=== PATIENT | male | born 1960 | race Caucasian/White ===

== ENCOUNTER 2016-10-19 13:39 | Emergency (ER) | payer MEDICARE, MEDICAID ==
[~2016-10-19] VITALS: Ht 172.7 cm; Wt 67.1 kg
[~2016-10-19 13:39] MED LIST: ACET-819 PO; ARFO15VI2 NEB; AZTH250C PO; BNZT1T PO; CIPR500T78 PO; DNPZ5T PO; GABA300C; GBPN300C PO; GENT3.5O18 OP; HYDR118S10 PO; LORA10TA2; LORA10TA2 PO; LORA1TAB PO; MEMA10TA PO; MIRT30TA6 PO; MNTL10T; MONT10TA21 PO; OMEP-10; OMEP40CA36 PO; PARO40TA47 PO; QTP100T PO; RISP0.5T2 PO; RISP3TAB17 PO; RISP3TAB3 PO; SLMFT1E; VNL75CCR; VNL75CCR PO
--- OUTSIDE RECORDS SUMMARY | 2016-10-19 13:46 | XMS REPORT | Continuity of Care Document ---
Author Author [facility] Organization [facility] Address Unknown Phone Unavailable Care Team Providers Care Parish Worker Name Role Phone Jaylen Garcia PCP [phone] Source Comments Some departments are not documenting in the electronic medical record. If you do not see the information that you expected, contact Release of Information in the Health Information Management department at [phone] for further assistance in locating additional records.[facility] Active Allergies and Adverse Reactions Not on File Current Medications Prescription Sig. Disp. Refills Start End Date Status Date venlafaxine XR (EFFEXOR Take 150 mg by mouth Active XR) 150 mg capsule daily. memantine (NAMENDA) 10 mg Take 10 mg by mouth twice Active tablet daily. MONTELUKAST SODIUM Take by mouth. Active (SINGULAIR PO) LORazepam (ATIVAN) 1 mg Take 1 mg by mouth every Active tablet 4 hours as needed. cetirizine (ZYRTEC) 10 mg Take 10 mg by mouth Active tablet daily. risperiDONE (RISPERDAL) 3 Take 3 mg by mouth twice Active mg tablet daily. neomycin/polymyxin/HC Place 3 Drops in or Active (CORTISPORIN) around ear as directed 3.5-10,000-1 mg-unit/mL-% four times daily. otic suspension mirtazapine (REMERON) 15 Take 15 mg by mouth at Active mg tablet bedtime daily. mupirocin (BACTROBAN) 2 % Apply to affected area Active topical ointment three times daily. OXYGEN-AIR DELIVERY Use as directed. Active SYSTEMS (HORIZON NASAL CPAP SYSTEM MISC) CALCIUM CARBONATE (MAALOX Take by mouth. Active PO) diphenoxylate/atropine Take 1 Tab by mouth four Active (LOMOTIL) 2.5/0.025 mg times daily as needed. tablet MAGNESIUM HYDROXIDE (MILK Take by mouth. Active OF MAGNESIA PO) Arformoterol (BROVANA) 15 Inhale by mouth. Active mcg/2 mL nebu IBUPROFEN PO Take by mouth. Active ofloxacin (FLOXIN) 0.3 % Place 5 Drops in or 1 Bottle 3 11/27/19 Active otic solution around ear as directed 14 daily. Instill in right ear Active Problems Problem Noted Date Cholesteatoma 09/25/2013 Social History Tobacco Use Types Packs/Day Years Used Date Never Smoker Smokeless Tobacco: Never Used Alcohol Use Drinks/Week oz/Week Comments No Last Filed Vital Signs Vital Sign Reading Time Taken Blood Pressure 125/84 11/26/2013 11:27 AM CDT Pulse 102 11/26/2013 11:27 AM CDT Temperature 37.5 C (99.5 F) 11/03/2013 2:57 PM CDT Respiratory Rate - - Height 1.727 m (5' 8") 11/26/2013 11:27 AM CDT Weight 89.268 kg (196 lb 12.8 11/26/2013 11:27 AM CDT oz) Body Mass Index 29.93 11/26/2013 11:27 AM CDT Oxygen Saturation 94% 11/03/2013 4:15 PM CDT Plan of Care Health Maintenance Due Date Last Done Comments Physical (Comprehensive) 1968 Exam Pertussis Vaccine 1972 Tetanus Vaccine 1978 Colorectal Cancer 2011 Screening Influenza Vaccine 04/12/2016 Results from Last 3 Months Not on file
--- NOTE | 2016-10-19 14:54 | ED Cough/URI ---
General Chief Complaint: Cough/Cold/Flu Symptoms Stated Complaint: [facility] Nursing Triage Note: LAST WEEK WAS SEEN AT [facility] FOR MEDICATION ADJUSTMENT, AT THE TIME ALSO HAD FEVER. CONT TO HAVE INTERMITTENT FEVER AND RECEIVED ABX. IS NOT GETTING BETTER. Source: patient Exam Limitations: no limitations History of Present Illness Time seen by provider: 14:52 Initial Comments To ER with intermittent fevers and a cough. Patient is mentally retarded. He' s had a cough for a few days and shortness of breath since earlier today. He is currently on Omnicef for a fever that was discovered last week but he was without symptoms at that point. He was discharged from [facility] health unit at [place] 1-2 weeks ago Timing/Duration: getting worse Severity/Quality: moderate Associated Symptoms: cough, fever/chills Allergies and Home Medications Allergies Coded Allergies: No Known Drug Allergies (Unverified , 04/01/09) Home Medications Arformoterol Tartrate 15 Mcg/2 Ml Vial.neb 1 EACH IH BID (Reported) Gentamicin Sulfate 3.5 Gm Oint...g. 5Days 3.5 GM OP Q6H Prescribed by: MADI MACDONALD on 03/11/16 1248 Levofloxacin 500 Mg Tablet #7 500 MG PO DAILY Prescribed by: MADI MACDONALD on 10/19/16 1531 Loratadine 10 Mg Tablet 10 MG PO DAILY (Reported) Lorazepam 1 Mg Tab 1 EACH PO HS PRN PRN ANXIETY (Reported) Memantine Hcl 10 Mg Tablet 10 MG PO BID (Reported) Mirtazapine 30 Mg Tablet 30 MG PO HS (Reported) Montelukast Sodium 10 Mg Tablet 10 MG PO DAILY (Reported) Risperidone 0.5 Mg Tablet 0.5 MG PO DAILY (Reported) Risperidone 3 Mg Tablet 3 MG PO HS (Reported) Venlafaxine Hcl 75 Mg Cap 150 MG PO DAILY (Reported) Constitutional: see HPI chillsNo fever EENTM: see HPI Respiratory: no symptoms reported Cardiovascular: no symptoms reported Genitourinary: no symptoms reported Musculoskeletal: no symptoms reported Skin: no symptoms reported Psychiatric/Neurological: No Symptoms Reported Hematologic/Lymphatic: No Symptoms Reported Past Sqlnfiv-Xwwmdq-Ngingo Hx Patient Social History Alcohol Use: Denies Use Recreational Drug Use: No Smoking Status: Never a Smoker Recent Foreign Travel: No Contact w/Someone Who Travel: No Recent Infectious Disease Expo: No Recent Hopitalizations: Yes Immunizations Up To Date Date of Influenza Vaccine: Jun 04, 2013 Surgeries HX Surgeries: Yes (KNEE SURGERY LEFT, T & A) Respiratory Hx Respiratory Disorders: No Cardiovascular Hx Cardiac Disorders: No Neurological Hx Neurological Disorders: Yes Reproductive System Hx Reproductive Disorders: No Sexually Transmitted Disease: No HIV/AIDS: No Genitourinary Hx Genitourinary Disorders: No Gastrointestinal Hx Gastrointestinal Disorders: Yes (CONSTIPATION AT TIMES) Gastrointestinal Disorders: Gastroesophageal Reflux Musculoskeletal Hx Musculoskeletal Disorders: No Endocrine Hx Endocrine Disorders: No HEENT HX ENT Disorders: No Psychosocial Hx Psychiatric Problems: Yes Behavioral Health Disorders: Depression Blood Transfusions Hx Blood Disorders: No Physical Exam Vital Signs Vital Sign - Last 12Hours 10/19/16 14:29 Temp 98.3 Pulse 119 Resp 18 B/P 134/95 Pulse Ox 94 Capillary Refill : Less Than 3 Seconds General Appearance: WD/WN no apparent distress Eyes: Bilateral Eye EOMI, Bilateral Eye Normal Inspection, Bilateral Eye PERRL HEENT: PERRL/EOMI normal ENT inspection pharynx normal Neck: non-tender full range of motion Respiratory: no respiratory distress no accessory muscle use rales (lung bases left greater than right) Cardiovascular: no murmur tachycardia Gastrointestinal: normal bowel sounds non tender soft Neurologic/Psychiatric: alert normal mood/affect oriented x 3 Skin: normal color warm/dry Progress/Results/Core Measures Results/Orders Lab Results Laboratory Tests Test 10/19/16 14:50 Range/Units Alanine Aminotransferase (ALT/SGPT) 67 H 0-55 U/L Albumin 3.5 3.2-4.5 G/DL Alkaline Phosphatase 122 40-136 U/L Anion Gap 14 5-14 MMOL/L Aspartate Amino Transf (AST/SGOT) 77 H 5-34 U/L BUN/Creatinine Ratio 28 Basophils # (Auto) 0.0 0.0-0.1 10^3/uL Basophils (%) (Auto) 0 0-10 % Blood Urea Nitrogen 27 H 7-18 MG/DL Calcium Level 10.2 H 8.5-10.1 MG/DL Carbon Dioxide Level 23 21-32 MMOL/L Chloride Level 116 H 98-107 MMOL/L Creatinine 0.96 0.60-1.30 MG/DL Eosinophils # (Auto) 0.1 0.0-0.3 10^3/uL Eosinophils (%) (Auto) 1 0-10 % Estimat Glomerular Filtration Rate > 60 Glucose Level 147 H 70-105 MG/DL Hematocrit 40 40-54 % Hemoglobin 13.2 L 13.3-17.7 G/DL Lymphocytes # (Auto) 1.0 1.0-4.0 X 10^3 Lymphocytes (%) (Auto) 10 L 12-44 % Mean Corpuscular Hemoglobin 31 25-34 PG Mean Corpuscular Hemoglobin Concent 33 32-36 G/DL Mean Corpuscular Volume 95 80-99 FL Mean Platelet Volume 9.9 7.4-10.4 FL Monocytes # (Auto) 0.9 0.0-1.0 X 10^3 Monocytes (%) (Auto) 9 0-12 % Neutrophils # (Auto) 8.3 H 1.8-7.8 X 10^3 Neutrophils (%) (Auto) 81 H 42-75 % Platelet Count 310 130-400 10^3/uL Potassium Level 3.9 3.6-5.0 MMOL/L Red Blood Count 4.23 L 4.35-5.85 10^6/uL Red Cell Distribution Width 13.6 10.0-14.5 % Sodium Level 153 H 135-145 MMOL/L Total Bilirubin 0.3 0.1-1.0 MG/DL Total Protein 6.9 6.4-8.2 G/DL White Blood Count 10.3 4.3-11.0 10^3/uL My Orders Orders-MADI MACDONALD APRN Cbc With Automated Diff (10/19/16 14:46) Comprehensive Metabolic Panel (10/19/16 14:46) Chest Pa/Lat (2 View) (10/19/16 14:46) Saline Lock/Iv-Start (10/19/16 14:46) Levofloxacin Tablet (Levaquin Tablet) (10/19/16 15:30) Ns Iv 500 Ml (Sodium Chloride 0.9%) (10/19/16 16:00) Ns Iv 500 Ml (Sodium Chloride 0.9%) (10/19/16 16:15) Medications Given in ED Current Medications Medications Dose Ordered Sig/Steven Route Start Time Stop Time Status Last Admin Dose Admin Sodium Chloride 500 ml STK-MED ONCE .ROUTE 10/19/16 16:00 10/19/16 16:03 DC 10/19/16 16:05 Vital Signs/I&O Vital Sign - Last 12Hours 10/19/16 10/19/16 14:29 16:28 Temp 98.3 Pulse 119 100 Resp 18 18 B/P 134/95 Pulse Ox 94 97 Blood Pressure Mean: 108 Diagnostic Imaging Diagonstic Imaging: Xray Plain Films/CT/US/NM/MRI: chest Comments NAME: MERVAT ROSAS REC#: [id number] PT STATUS: REG ER : 1960 PHYSICIAN: MADI MACDONALD APRN ADMIT DATE: 10/19/16/ER Draft Date of Exam:10/19/16 CHEST PA/LAT (2 VIEW) INDICATION: Febrile. COMPARISON: 10/14/2011. FINDINGS: PA and lateral views show some alveolar infiltrates developing posteriorly in the right lower lobe. The lungs are well aerated. The heart is not enlarged. No hilar adenopathy. No pulmonary edema. No pneumothorax or pleural effusion. IMPRESSION: Findings consistent with right lower lobe pneumonia. Dictated on workstation # [id number] Dict: 10/19/16 1519 Trans: 10/19/16 1523 [id number] Interpreted by: AMARA SHEETS MD Electronically signed by: Departure Impression Impression: Primary Impression: RLL pneumonia Qualified Code: J18.1 - Lobar pneumonia, unspecified organism Disposition: 01 HOME, SELF-CARE Condition: Stable Departure-Patient Inst. Decision time for Depature: 15:29 Referrals: FABIOLA OMALLEY MD (PCP/Family) Primary Care Physician Patient Instructions: Pneumonia, Adult (DC) Add. Discharge Instructions: 1. Return to ER for any concerns 2. Follow up with Dr Omalley next week 3. Stop the Omnicef. Start the levaquin. All discharge instructions reviewed with patient and/or family. Voiced understanding. Scripts Levofloxacin (Levaquin)500 Mg [id number] Mg PO DAILY #7 TAB Prov:MADI MACDONALD APRN 10/19/16 MADI MACDONALD APRN Oct 19, 2016 14:54
[2016-10-19 15:06] LABS: BASOPHILS % (AUTO) 0 % (0-10); EOSINOPHILS # (AUTO) 0.1 10^3/uL (0.0-0.3); EOSINOPHILS % (AUTO) 1 % (0-10); LYMPHOCYTES % (AUTO) 10 % (12-44); MEAN CORPUSCULAR HEMOGLOBIN 31 PG (25-34); MEAN CORPUSCULAR HGB CONC 33 G/DL (32-36); MEAN CORPUSCULAR VOLUME 95 FL (80-99); MEAN PLATELET VOLUME 9.9 FL (7.4-10.4); MONOCYTES # (AUTO) 0.9 X 10^3 (0.0-1.0); MONOCYTES % (AUTO) 9 % (0-12); NEUTROPHILS # (AUTO) 8.3 X 10^3 (1.8-7.8); NEUTROPHILS % (AUTO) 81 % (42-75); PLATELET COUNT 310 10^3/uL (130-400); RED BLOOD COUNT 4.23 10^6/uL (4.35-5.85); RED CELL DISTRIBUTION WIDTH 13.6 % (10.0-14.5); WHITE BLOOD COUNT 10.3 10^3/uL (4.3-11.0)
--- NOTE | 2016-10-19 15:24 | Diagnostic Imaging Report ---
INDICATION: Febrile. COMPARISON: 10/14/2011. FINDINGS: PA and lateral views show some alveolar infiltrates developing posteriorly in the right lower lobe. The lungs are well aerated. The heart is not enlarged. No hilar adenopathy. No pulmonary edema. No pneumothorax or pleural effusion. IMPRESSION: Findings consistent with right lower lobe pneumonia. Dictated by: Dictated on workstation # [id number]
[2016-10-19 15:26] LABS: ALANINE AMINOTRANSFERASE 67 U/L (0-55); ALBUMIN 3.5 G/DL (3.2-4.5); ANION GAP 14 MMOL/L (5-14); ASPARTATE AMINO TRANSFERASE 77 U/L (5-34); BILIRUBIN,TOTAL 0.3 MG/DL (0.1-1.0); BLOOD UREA NITROGEN 27 MG/DL (7-18); BUN/CREATININE RATIO 28; CALCIUM 10.2 MG/DL (8.5-10.1); CARBON DIOXIDE 23 MMOL/L (21-32); CHLORIDE 116 MMOL/L (98-107); CREATININE SERUM 0.96 MG/DL (0.60-1.30); GFR ESTIMATED > 60; GLUCOSE 147 MG/DL (70-105); POTASSIUM 3.9 MMOL/L (3.6-5.0); SODIUM 153 MMOL/L (135-145); TOTAL PROTEIN 6.9 G/DL (6.4-8.2)
[2016-10-19] MEDS ORDERED: LEVO500T2 PO (15:31)
[2016-10-19] MEDS: NS IV 500 ML 500 ML ONE (16:05)
[2016-10-19] MEDS: LEVOFLOXACIN 500 MG TAB (LEVAQUIN) PO ONE (16:06)
[2016-10-19] MEDS ORDERED: NS IV 500 ML 500 ML IV SCH (16:15)
[2016-10-19 16:28] VITALS: BP 134/98
== END 2016-10-19 16:28 | disposition home or self-care (01) ==
LOC: EDUNIT# 13:39 → ER 13:41
DX: J18.9 Pneumonia, unspecified organism (principal); F79 Unspecified intellectual disabilities
CPT/HCPCS: 36415; 71020; 80053; 85025; 96360

== ENCOUNTER 2016-10-26 13:26 | Inpatient (IN) | payer MEDICARE, MEDICAID ==
[~2016-10-26] VITALS: Ht 182.9 cm; Wt 88.5 kg
[~2016-10-26 13:26] MED LIST changes: +LEVO500T2 PO
--- OUTSIDE RECORDS SUMMARY | 2016-10-26 13:31 | XMS REPORT | Continuity of Care Document ---
Author Author [facility] Organization [facility] Address Unknown Phone Unavailable Care Team Providers Care Director Of Event Management Name Role Phone Jaylen Garcia PCP [phone] Source Comments Some departments are not documenting in the electronic medical record. If you do not see the information that you expected, contact Release of Information in the Health Information Management department at [phone] for further assistance in locating additional records.[facility] Active Allergies and Adverse Reactions Not on [...]
--- NOTE | 2016-10-26 13:35 | ED Fall/Injury ---
General Stated Complaint: FALL Source: patient Exam Limitations: no limitations History of Present Illness Time seen by provider: 13:33 Initial Comments To ER per EMS from the [facility] states with reports of a fall. detention staff found him on the floor laying on his left side this morning. Patient initially complained of left hip pain but to EMS he did not report any pain. He was weightbearing during transfer to the EMS cot. I did see this gentleman a few days ago and started him on Levaquin for a right lower lobe pneumonia. Occurred: just prior to arrival Severity: mild Injuries/Pain Location: lower extremity Context: unknown Associated Symptoms (Fall): Denies Symptoms Allergies and Home Medications Allergies Coded Allergies: No Known Drug Allergies (Unverified , 04/01/09) Home Medications Arformoterol Tartrate 15 Mcg/2 Ml Vial.neb 1 EACH IH BID (Reported) Levofloxacin 500 Mg Tablet #7 500 MG PO DAILY Prescribed by: MADI MACDONALD on 10/19/16 1531 Loratadine 10 Mg Tablet 10 MG PO DAILY (Reported) Lorazepam 1 Mg Tab 1 EACH PO HS PRN PRN ANXIETY (Reported) Memantine Hcl 10 Mg Tablet 10 MG PO BID (Reported) Mirtazapine 30 Mg Tablet 30 MG PO HS (Reported) Montelukast Sodium 10 Mg Tablet 10 MG PO DAILY (Reported) Risperidone 0.5 Mg Tablet 0.5 MG PO DAILY (Reported) Risperidone 3 Mg Tablet 3 MG PO HS (Reported) Venlafaxine Hcl 75 Mg Cap 150 MG PO DAILY (Reported) Constitutional: see HPI Eyes: No Symptoms Reported Ears, Nose, Mouth, Throat: no symptoms reported Respiratory: no symptoms reported Cardiovascular: no symptoms reported Genitourinary: no symptoms reported Musculoskeletal: see HPI Skin: no symptoms reported Psychiatric/Neurological: No Symptoms Reported Past Kywpiwt-Hotyfm-Fxvaws Hx Patient Social History Recent Hopitalizations: Yes Immunizations Up To Date Date of Influenza Vaccine: Jun 04, 2013 Surgeries HX Surgeries: Yes (KNEE SURGERY LEFT, T & A) Respiratory Hx Respiratory Disorders: No Cardiovascular Hx Cardiac Disorders: No Neurological Hx Neurological Disorders: Yes Reproductive System Hx Reproductive Disorders: No Sexually Transmitted Disease: No HIV/AIDS: No Genitourinary Hx Genitourinary Disorders: No Gastrointestinal Hx Gastrointestinal Disorders: Yes (CONSTIPATION AT TIMES) Gastrointestinal Disorders: Gastroesophageal Reflux Musculoskeletal Hx Musculoskeletal Disorders: No Endocrine Hx Endocrine Disorders: No HEENT HX ENT Disorders: No Psychosocial Hx Psychiatric Problems: Yes Behavioral Health Disorders: Depression Blood Transfusions Hx Blood Disorders: No Physical Exam Vital Signs Vital Sign - Last 12Hours 10/26/16 13:35 Temp 98.6 Pulse 113 Resp 18 B/P 118/87 Pulse Ox 94 O2 Delivery Room Air Capillary Refill : General Appearance: WD/WN no apparent distress HEENT: PERRL/EOMI normal ENT inspection Neck: non-tender full range of motion Respiratory: normal breath sounds no respiratory distress no accessory muscle use Gastrointestinal: normal bowel sounds non tender soft Extremities: normal range of motion non-tender other (no pain to palpation of either hip) Neurologic/Psychiatric: alert normal mood/affect oriented x 3 Skin: normal color warm/dry Comments Patient is very pleasant and alert. Denies any pain anywhere. He is mentally retarded. Monroe Coma Score Best Eye Response: (4) Open Spontaneously Best Verbal Response: (5) Oriented Best Motor Response: (6) Obeys Commands Monroe Total: 15 Progress/Results/Core Measures Results/Orders Lab Results Laboratory Tests Test 10/26/16 13:32 Range/Units Band Neutrophils 2 % Basophils # (Auto) 0.0 0.0-0.1 10^3/uL Basophils % (Manual) 0 % Basophils (%) (Auto) 0 0-10 % Blood Morphology Comment NORMAL Eosinophils # (Auto) 0.1 0.0-0.3 10^3/uL Eosinophils % (Manual) 0 % Eosinophils (%) (Auto) 1 0-10 % Hematocrit 44 40-54 % Hemoglobin 14.0 13.3-17.7 G/DL Lymphocytes # (Auto) 2.0 1.0-4.0 X 10^3 Lymphocytes % (Manual) 11 % Lymphocytes (%) (Auto) 12 12-44 % Mean Corpuscular Hemoglobin 31 25-34 PG Mean Corpuscular Hemoglobin Concent 32 32-36 G/DL Mean Corpuscular Volume 97 80-99 FL Mean Platelet Volume 10.6 H 7.4-10.4 FL Monocytes # (Auto) 0.6 0.0-1.0 X 10^3 Monocytes % (Manual) 3 % Monocytes (%) (Auto) 4 0-12 % Neutrophils # (Auto) 13.1 H 1.8-7.8 X 10^3 Neutrophils % (Manual) 84 % Neutrophils (%) (Auto) 83 H 42-75 % Platelet Count 371 130-400 10^3/uL Red Blood Count 4.51 4.35-5.85 10^6/uL Red Cell Distribution Width 13.7 10.0-14.5 % White Blood Count 15.8 H 4.3-11.0 10^3/uL My Orders Orders-MADI MACDONALD APRN Cbc With Automated Diff (10/26/16 13:33) Chest Pa/Lat (2 View) (10/26/16 13:33) Pelvis/[place] Hips 2 Views (10/26/16 13:33) Manual Differential (10/26/16 13:32) Blood Culture (10/26/16 14:01) Lactic Acid Analyzer (10/26/16 14:01) Creatine Kinase (10/26/16 14:09) Comprehensive Metabolic Panel (10/26/16 14:09) Vital Signs/I&O Vital Sign - Last 12Hours 10/26/16 13:35 Temp 98.6 Pulse 113 Resp 18 B/P 118/87 Pulse Ox 94 O2 Delivery Room Air Departure Communication Progress Notes 1409-in regards to the hyperkalemia (initially 6.1) I did discuss the case with laboratory personnel who reports that there was some mild hemolysis. They will come down to redraw this. Impression Impression: Primary Impression: RLL pneumonia Additional Impression: failure of outpatient therapy Disposition: 09 ADMITTED INPATIENT Condition: Stable Decision to Admit Reason: Admit from ER (General) Decision to Admit/Date: Oct 26, 2016 Time/Decision to Admit Time: 14:09 Departure-Patient Inst. Referrals: FABIOLA OMALLEY MD (PCP/Family) Primary Care Physician MADI MACDONALD APRN Oct 26, 2016 13:35 Lactic Acid Analyzer (10/26/16 14:01) Vital Signs/I&O Vital Sign - Last 12Hours 10/26/16 13:35 Temp 98.6 Pulse 113 Resp 18 B/P 118/87 Pulse Ox 94 O2 Delivery Room Air Departure Communication Progress Notes 1409-in regards to the hyperkalemia I did discuss the case with laboratory personnel who reports that there was some mild hemolysis. They will come down to redraw this. Impression Impression: Primary Impression: RLL pneumonia Additional Impression: failure of outpatient therapy Disposition: 09 ADMITTED INPATIENT Condition: Stable Decision to Admit Reason: Admit from ER (General) Decision to Admit/Date: Oct 26, 2016 Time/Decision to Admit Time: 14:09 Departure-Patient Inst. Referrals: FABIOLA OMALLEY MD (PCP/Family) Primary Care Physician MADI MACDONALD APRN Oct 26, 2016 13:35
[2016-10-26 13:40] LABS: BASOPHILS % (AUTO) 0 % (0-10); EOSINOPHILS # (AUTO) 0.1 10^3/uL (0.0-0.3); EOSINOPHILS % (AUTO) 1 % (0-10); LYMPHOCYTES % (AUTO) 12 % (12-44); MEAN CORPUSCULAR HEMOGLOBIN 31 PG (25-34); MEAN CORPUSCULAR HGB CONC 32 G/DL (32-36); MEAN CORPUSCULAR VOLUME 97 FL (80-99); MEAN PLATELET VOLUME 10.6 FL (7.4-10.4); MONOCYTES # (AUTO) 0.6 X 10^3 (0.0-1.0); MONOCYTES % (AUTO) 4 % (0-12); NEUTROPHILS # (AUTO) 13.1 X 10^3 (1.8-7.8); NEUTROPHILS % (AUTO) 83 % (42-75); PLATELET COUNT 371 10^3/uL (130-400); RED BLOOD COUNT 4.51 10^6/uL (4.35-5.85); RED CELL DISTRIBUTION WIDTH 13.7 % (10.0-14.5); WHITE BLOOD COUNT 15.8 10^3/uL (4.3-11.0)
[2016-10-26 13:54] LABS: BAND NEUTROPHILS 2 %; BASOPHILS % (MANUAL) 0 %; EOSINOPHILS % (MANUAL) 0 %; LYMPHOCYTES % (MANUAL) 11 %; NEUTROPHILS % (MANUAL) 84 %
--- NOTE | 2016-10-26 14:45 | Diagnostic Imaging Report ---
INDICATION: Fall. PA and lateral chest obtained at 2:03 p.m. and compared to 10/19/2016. Minimal infiltrates in the lung bases are again noted and appear similar to the previous study of 10/19/2016. Heart is normal in size. There is a hiatal hernia present. There is no pneumothorax or pleural fluid. There is no overt bony abnormality in the chest. IMPRESSION: Mild bibasilar infiltrates are again noted and similar to the prior study. Hiatal hernia again noted. There is no new abnormality. Dictated by: Dictated on workstation # [id number]
[2016-10-26 14:52] LABS: ALANINE AMINOTRANSFERASE 34 U/L (0-55); ALBUMIN 3.6 G/DL (3.2-4.5); ANION GAP 11 MMOL/L (5-14); ASPARTATE AMINO TRANSFERASE 34 U/L (5-34); BILIRUBIN,TOTAL 0.2 MG/DL (0.1-1.0); BLOOD UREA NITROGEN 27 MG/DL (7-18); BUN/CREATININE RATIO 23; CALCIUM 9.5 MG/DL (8.5-10.1); CARBON DIOXIDE 26 MMOL/L (21-32); CHLORIDE 120 MMOL/L (98-107); CREATINE KINASE 764 U/L (30-200); CREATININE SERUM 1.16 MG/DL (0.60-1.30); GFR ESTIMATED > 60; GLUCOSE 98 MG/DL (70-105); POTASSIUM 3.8 MMOL/L (3.6-5.0); SODIUM 157 MMOL/L (135-145); TOTAL PROTEIN 6.1 G/DL (6.4-8.2)
--- NOTE | 2016-10-26 14:53 | Diagnostic Imaging Report ---
INDICATION: Fall with bilateral hip pain. AP view of the pelvis is obtained with coned AP and lateral views of both hips. No acute fracture or malalignment is identified. There does appear to be degenerative facet arthropathy, greater on the left at L4-L5 and L3-L4. Sacroiliac joints and pubic symphysis are intact. There is no evidence of acute hip abnormality. No abnormal lytic or sclerotic focus is identified. IMPRESSION: Lower lumbar degenerative change without acute pelvic or hip abnormality identified. Dictated by: Dictated on workstation # [id number]
[2016-10-26] MEDS ORDERED: CEFEPIME INJECTION 2,000 MG in NS (IVPB) 50 ML IV ONE (15:00)
[2016-10-26] MEDS ORDERED: NS IV 1000 ML 1,000 ML IV SCH (15:15)
[2016-10-26] MEDS ORDERED: CATHETER FLUSH 10 ML SYR IV PRN (16:15)
[2016-10-26] MEDS ORDERED: ACETAMINOPHEN 325 MG TABLET/CAPLET (TYLENOL) PO PRN (16:15)
[2016-10-26] MEDS ORDERED: LORazepam 1 MG (ATIVAN) TAB PO PRN (16:30)
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
[2016-10-26] MEDS: NS IV 1000 ML 1,000 ML IV SCH (16:44)
[2016-10-26] MEDS: AZITHROMYCIN INJECTION 500 MG in NS (IVPB) 250 ML IV SCH (16:44)
[2016-10-26 16:46] VITALS: BP 151/92
[2016-10-26] MEDS: ENOXAPARIN 40 MG/0.4 ML (LOVENOX) SYR SC SCH (16:46)
[2016-10-26] MEDS ORDERED: RT-ALBUTEROL SULF 2.5 MG/3 ML PRE-MIX VIAL INH PRN (17:30)
[2016-10-26] MEDS ORDERED: LORazepam 0.5 MG (ATIVAN) TABLET PO PRN (19:30)
[2016-10-26 20:03] VITALS: BP 128/89
[2016-10-26] MEDS: ARFORMOTEROL 15 MCG/2 ML (BROVANA) INH SOLUTIION IH SCH (20:47)
[2016-10-26] MEDS: MIRTAZAPINE 15 MG (REMERON) TAB PO SCH (20:49)
[2016-10-26] MEDS: risperiDONE 1 MG (RisperDAL) TAB PO SCH (20:49)
[2016-10-26] MEDS: MEMANTINE 10 MG (NAMENDA) TABLET PO SCH (20:50)
[2016-10-26] MEDS ORDERED: ARFORMOTEROL 15 MCG/2 ML (BROVANA) INH SOLUTIION IH SCH (21:00)
[2016-10-26] MEDS ORDERED: NON-FORMULARY MEDICATION 1 EA EA (Risperidone 3 MG) PO SCH (21:00)
[2016-10-26] MEDS ORDERED: NON-FORMULARY MEDICATION 1 EA EA (Mirtazapine 30 MG) PO SCH (21:00)
[2016-10-27] VITALS: BP 117/77
[2016-10-27] MEDS: NS IV 1000 ML 1,000 ML IV SCH ×3 (02:00→16:59)
[2016-10-27 04:00] VITALS: BP 120/82
[2016-10-27 04:43] LABS: MEAN PLATELET VOLUME 10.6 FL (7.4-10.4); RED BLOOD COUNT 3.9 10^6/uL (4.35-5.85); RED CELL DISTRIBUTION WIDTH 13.7 % (10.0-14.5); WHITE BLOOD COUNT 7.2 10^3/uL (4.3-11.0)
[2016-10-27 05:02] LABS: ALANINE AMINOTRANSFERASE 29 U/L (0-55); ALBUMIN 3.1 G/DL (3.2-4.5); ANION GAP 7 MMOL/L (5-14); ASPARTATE AMINO TRANSFERASE 48 U/L (5-34); BILIRUBIN,TOTAL 0.3 MG/DL (0.1-1.0); BLOOD UREA NITROGEN 18 MG/DL (7-18); BUN/CREATININE RATIO 20; CALCIUM 8.4 MG/DL (8.5-10.1); CARBON DIOXIDE 26 MMOL/L (21-32); CHLORIDE 121 MMOL/L (98-107); CREATININE SERUM 0.89 MG/DL (0.60-1.30); GFR ESTIMATED > 60; GLUCOSE 117 MG/DL (70-105); POTASSIUM 3.5 MMOL/L (3.6-5.0); SODIUM 154 MMOL/L (135-145); TOTAL PROTEIN 5.4 G/DL (6.4-8.2)
[2016-10-27 05:23] LABS: THYROID STIMULATING HORMONE 1.48 UIU/ML (0.35-4.94)
[2016-10-27 08:34] VITALS: BP 121/77
[2016-10-27] MEDS: MONTELUKAST 10 MG (SINGULAIR) TAB PO SCH (08:41)
[2016-10-27] MEDS: VENlafaxine XR 75 MG (EFFEXOR XR) CAP PO SCH (08:41)
[2016-10-27] MEDS: risperiDONE 1 MG (RisperDAL) TAB PO SCH ×2 (08:42→21:43)
[2016-10-27] MEDS: MEMANTINE 10 MG (NAMENDA) TABLET PO SCH ×2 (08:44→21:43)
[2016-10-27] MEDS: cefTRIAXone INJECTION 1,000 MG in NS (IVPB) 50 ML IV SCH (08:44)
[2016-10-27] MEDS ORDERED: NON-FORMULARY MEDICATION 1 EA EA (Risperidone 0.5 MG) PO SCH (09:00)
[2016-10-27] MEDS ORDERED: AZITHROMYCIN INJECTION 500 MG in NS (IVPB) 250 ML IV SCH (09:00)
[2016-10-27] MEDS: LORATADINE (CLARITIN) 10 MG TAB PO SCH (09:17)
[2016-10-27] MEDS: AZITHROMYCIN INJECTION 500 MG in NS (IVPB) 250 ML IV SCH (09:22)
[2016-10-27] MEDS: ARFORMOTEROL 15 MCG/2 ML (BROVANA) INH SOLUTIION IH SCH ×2 (11:52→19:49)
[2016-10-27 12:00] VITALS: BP 143/93
--- NOTE | 2016-10-27 12:11 | Progress Note-Hospitalist ---
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 He is a resident of [facility] and evidently had not been seen since this morning when he had fallen in his room. He says he doesn't know why he had fallen. he denied tripping or syncope but was found on the floor nonetheless. He originally complained of some hip pain but is ambulatory and x-rays were negative. Been seen previously this week for a right lower lobe pneumonia and started on Levaquin. White count is now up to 15,000 he is somewhat tachycardic in the right lower lobe pneumonia has not shown any improvement. He is admitted for physical therapy and IV antibiotics. Date Seen 10/27/16 Subjective/Events-last exam patient appears to be essentially unchanged from yesterday. He is been afebrile overnight but he remains tachycardic. Serum sodium is coming down. Review of Systems Neurological: : Weakness Objective Exam Vital Signs Vital Sign - Last 12Hours 10/26/16 13:35 Temp 98.6 Pulse 113 Resp 18 B/P 118/87 Pulse Ox 94 O2 Delivery Room Air Capillary Refill : Less Than 3 Seconds General Appearance: No Apparent Distress Chronically ill Neck: Other (extended) Respiratory: Lungs Clear Normal Breath Sounds No Accessory Muscle Use Cardiovascular: Tachycardia Gastrointestinal: Soft Results/Procedures Lab Laboratory Tests 10/26/16 13:32 10/26/16 14:25 10/27/16 04:10 Assessment/Plan Assessment and Plan Assess & Plan/Chief Complaint 1. right lower lobe pneumonia failed outpatient treatment-day number 2 Rocephin and Zithromax 2. Weakness and falling uncertain etiology will obtain PT 3. Hypernatremia appears to be chronic-consider checking urine lites, improving with IV fluid hydration 4. History of closed head injury with mental impairment-requires nursing home residence living SALVATORE BALLESTEROS MD Oct 27, 2016 12:11
[2016-10-27 16:00] VITALS: BP 142/90
[2016-10-27] MEDS: ENOXAPARIN 40 MG/0.4 ML (LOVENOX) SYR SC SCH (16:59)
[2016-10-27 20:00] VITALS: BP 147/87
[2016-10-27] MEDS: MIRTAZAPINE 15 MG (REMERON) TAB PO SCH (21:43)
[2016-10-28] VITALS: BP 122/82
[2016-10-28] MEDS: NS IV 1000 ML 1,000 ML IV SCH (02:55)
[2016-10-28 04:00] VITALS: BP 141/94
[2016-10-28] MEDS: ACETAMINOPHEN 325 MG TABLET/CAPLET (TYLENOL) PO PRN ×2 (05:02→16:08)
[2016-10-28 07:54] LABS: MEAN PLATELET VOLUME 10.7 FL (7.4-10.4); RED BLOOD COUNT 3.92 10^6/uL (4.35-5.85); RED CELL DISTRIBUTION WIDTH 13.6 % (10.0-14.5); WHITE BLOOD COUNT 13.7 10^3/uL (4.3-11.0)
[2016-10-28 08:16] LABS: ALANINE AMINOTRANSFERASE 29 U/L (0-55); ALBUMIN 3.2 G/DL (3.2-4.5); ANION GAP 10 MMOL/L (5-14); ASPARTATE AMINO TRANSFERASE 40 U/L (5-34); BILIRUBIN,TOTAL 0.4 MG/DL (0.1-1.0); BLOOD UREA NITROGEN 10 MG/DL (7-18); BUN/CREATININE RATIO 14; CALCIUM 8.6 MG/DL (8.5-10.1); CARBON DIOXIDE 24 MMOL/L (21-32); CHLORIDE 113 MMOL/L (98-107); CREATININE SERUM 0.72 MG/DL (0.60-1.30); GFR ESTIMATED > 60; GLUCOSE 127 MG/DL (70-105); POTASSIUM 3.5 MMOL/L (3.6-5.0); SODIUM 147 MMOL/L (135-145); TOTAL PROTEIN 5.6 G/DL (6.4-8.2)
[2016-10-28 08:23] VITALS: BP 102/68
[2016-10-28] MEDS: ARFORMOTEROL 15 MCG/2 ML (BROVANA) INH SOLUTIION IH SCH ×2 (08:42→18:50)
[2016-10-28] MEDS: LORATADINE (CLARITIN) 10 MG TAB PO SCH (08:50)
[2016-10-28] MEDS: cefTRIAXone INJECTION 1,000 MG in NS (IVPB) 50 ML IV SCH (08:50)
[2016-10-28] MEDS: MEMANTINE 10 MG (NAMENDA) TABLET PO SCH ×2 (08:50→20:02)
[2016-10-28] MEDS: risperiDONE 1 MG (RisperDAL) TAB PO SCH ×2 (08:50→20:01)
[2016-10-28] MEDS: MONTELUKAST 10 MG (SINGULAIR) TAB PO SCH (08:50)
[2016-10-28] MEDS: VENlafaxine XR 75 MG (EFFEXOR XR) CAP PO SCH (08:50)
[2016-10-28] MEDS: AZITHROMYCIN INJECTION 500 MG in NS (IVPB) 250 ML IV SCH (09:36)
--- NOTE | 2016-10-28 11:56 | Progress Note-Hospitalist ---
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 He is a resident of [facility] and evidently had not been seen since this morning when he had fallen in his room. He says he doesn't know why he had fallen. he denied tripping or syncope but was found on the floor nonetheless. He originally complained of some hip pain but is ambulatory and x-rays were negative. Been seen previously this week for a right lower lobe pneumonia and started on Levaquin. White count is now up to 15,000 he is somewhat tachycardic in the right lower lobe pneumonia has not shown any improvement. He is admitted for physical therapy and IV antibiotics. Date Seen 10/28/16 Subjective/Events-last exam patient is awake and answers my questions the best that he can. Don't see that he's been up in a chair but work on that today. Objective Exam Vital Signs Vital Sign - Last 12Hours 10/26/16 13:35 Temp 98.6 Pulse 113 Resp 18 B/P 118/87 Pulse Ox 94 O2 Delivery Room Air Capillary Refill : Less Than 3 Seconds General Appearance: No Apparent Distress Other (her dentition) Neck: Other (hyperextended) Respiratory: Lungs Clear Normal Breath Sounds Cardiovascular: Tachycardia Gastrointestinal: Normal Bowel Sounds Non Tender Soft Rectal: Deferred Neurologic/Psychiatric: Alert Disoriented x3 Skin: Warm/Dry Results/Procedures Lab Laboratory Tests 10/28/16 07:00 Assessment/Plan Assessment and Plan Assess & Plan/Chief Complaint 1. right lower lobe pneumonia failed outpatient treatment-day number 3 Rocephin and Zithromax-recheck a chest x-ray 2. Weakness and falling uncertain etiology will obtain PT-patient up in chair 3. Hypernatremia appears to be chronic-consider checking urine lites, improving with IV fluid hydration-I'll Hep-Lock IV fluids and push water 4. History of closed head injury with mental impairment-requires intermediate residence living 5. CODE STATUS needs to be addressed 6. tachycardia with a normal TSH. Uncertain etiology, but dehydration has been addressed certainly by now SALVATORE BALLESTEROS MD Oct 28, 2016 11:56
[2016-10-28 12:00] VITALS: BP 103/64
--- NOTE | 2016-10-28 15:56 | Diagnostic Imaging Report ---
INDICATION: Recheck pneumonia. EXAMINATION: Chest, 10/28/16. COMPARISON: 10/26/16. FINDINGS: There is a moderate hiatal hernia similar to previous imaging. The heart is stable. The pulmonary vasculature is unremarkable. Bibasilar atelectasis or infiltrates noted, slightly increased since previous imaging. No effusions are seen. There is no pneumothorax. IMPRESSION: Bibasilar atelectasis or infiltrate, slightly worsened compared to previous imaging. Remaining chest is stable. Dictated by: Dictated on workstation # [id number]
[2016-10-28 16:00] VITALS: BP 130/82
[2016-10-28] MEDS: ENOXAPARIN 40 MG/0.4 ML (LOVENOX) SYR SC SCH (16:08)
[2016-10-28 19:47] VITALS: BP 113/73
[2016-10-28] MEDS: MIRTAZAPINE 15 MG (REMERON) TAB PO SCH (20:01)
[2016-10-29 00:18] VITALS: BP 135/83
[2016-10-29] MEDS: ACETAMINOPHEN 325 MG TABLET/CAPLET (TYLENOL) PO PRN ×2 (00:23→05:29)
[2016-10-29 04:27] LABS: ANION GAP 9 MMOL/L (5-14); BLOOD UREA NITROGEN 9 MG/DL (7-18); BUN/CREATININE RATIO 13; CALCIUM 8.7 MG/DL (8.5-10.1); CARBON DIOXIDE 23 MMOL/L (21-32); CHLORIDE 114 MMOL/L (98-107); CREATININE SERUM 0.72 MG/DL (0.60-1.30); GFR ESTIMATED > 60; GLUCOSE 137 MG/DL (70-105); POTASSIUM 3.4 MMOL/L (3.6-5.0); SODIUM 146 MMOL/L (135-145)
[2016-10-29 04:53] VITALS: BP 113/70
[2016-10-29 08:30] VITALS: BP 117/75
[2016-10-29] MEDS: MEMANTINE 10 MG (NAMENDA) TABLET PO SCH (08:56)
[2016-10-29] MEDS: MONTELUKAST 10 MG (SINGULAIR) TAB PO SCH (08:56)
[2016-10-29] MEDS: LORATADINE (CLARITIN) 10 MG TAB PO SCH (08:56)
[2016-10-29] MEDS: risperiDONE 1 MG (RisperDAL) TAB PO SCH (08:57)
[2016-10-29] MEDS: VENlafaxine XR 75 MG (EFFEXOR XR) CAP PO SCH (08:57)
[2016-10-29] MEDS: cefTRIAXone INJECTION 1,000 MG in NS (IVPB) 50 ML IV SCH (08:57)
[2016-10-29] MEDS: AZITHROMYCIN INJECTION 500 MG in NS (IVPB) 250 ML IV SCH (09:41)
[2016-10-29] MEDS ORDERED: ATOR20TA66 PO (09:48)
[2016-10-29] MEDS ORDERED: NEOM7.5D8 OS (09:48)
[2016-10-29] MEDS ORDERED: TAMS0.4C2 PO (09:48)
[2016-10-29] MEDS ORDERED: METF500T4 PO (09:48)
[2016-10-29] MEDS ORDERED: VENL150C98 PO (09:48)
[2016-10-29] MEDS ORDERED: DOCU-143 PO (09:48)
[2016-10-29] MEDS ORDERED: CNC1KV IJ (09:48)
[2016-10-29] MEDS ORDERED: RIVA1PAT3 TD (09:48)
[2016-10-29] MEDS ORDERED: MIRT15TA6 PO (09:48)
[2016-10-29] MEDS ORDERED: IBUP-1773 PO (09:48)
[2016-10-29] MEDS ORDERED: TRAZ-28 PO (09:48)
[2016-10-29] MEDS ORDERED: IPRA3AMP NEB (09:48)
[2016-10-29] MEDS ORDERED: FOLI1TAB24 PO (09:48)
[2016-10-29] MEDS ORDERED: CARB15DR87 EACH EAR (09:48)
[2016-10-29] MEDS ORDERED: LORA0.5T PO (09:48)
[2016-10-29] MEDS ORDERED: GUAI100L13 PO (09:48)
[2016-10-29] MEDS ORDERED: CHOL10003 PO (09:48)
[2016-10-29] MEDS: ARFORMOTEROL 15 MCG/2 ML (BROVANA) INH SOLUTIION IH SCH (10:33)
--- NOTE | 2016-11-14 13:36 | Discharge Summary-Hospitalist ---
Diagnosis/Chief Complaint Date of Admission Oct 26, 2016 at 15:03 Date of Discharge Oct 29, 2016 at 11:24 Discharge Date: Oct 29, 2016 Admission Diagnosis 1. right lower lobe pneumonia failed outpatient treatment 2. Weakness and falling uncertain etiology will obtain PT 3. Hypernatremia appears to be chronic 4. 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 He is a resident of [facility] and evidently had not been seen since this morning when he had fallen in his room. He says he doesn't know why he had fallen. he denied tripping or syncope but was found on the floor nonetheless. He originally complained of some hip pain but is ambulatory and x-rays were negative. Been seen previously this week for a right lower lobe pneumonia and started on Levaquin. White count is now up to 15,000 he is somewhat tachycardic in the right lower lobe pneumonia has not shown any improvement. He is admitted for physical therapy and IV antibiotics. Hospital course: the patient was placed on IV antibiotics. His alertness improved steadily. He appeared better able to participate with physical therapy. He was transferred to swing bed on 10/31 complete an additional 5 days of IV antibiotics and to continue physical therapy in hopes of the adequate improvement to return to his present home at [facility]. Discharge Summary Discharge Physical Examination Allergies: Coded Allergies: No Known Drug Allergies (Unverified , 04/01/09) Hospital Course Labs (last 24 hrs) Microbiology 10/26/16 Blood Culture - Final, Complete No growth Discharge Home Medications: Active Scripts Active Reported Debrox (Carbamide Peroxide) 15 Ml Drops 5 Drops EACH EAR BID PRN 10 Days Guaifenesin 100 Mg/5 Ml Liquid 5-10 Ml PO EVERY 4-6 HOURS PRN Iprat-Albut 0.5-3(2.5) mg/3 ml (Ipratropium/Albuterol Sulfate) 3 Ml Ampul.neb 3 Ml NEB EVERY 4-6 HOURS PRN Ibuprofen 600 Mg Tablet 600 Mg PO TID PRN Atorvastatin Calcium 20 Mg Tablet 20 Mg PO HS Mirtazapine 15 Mg Tablet 15 Mg PO HS Lorazepam 0.5 Mg Tablet 0.5 Mg PO HS Trazodone HCl 50 Mg Tablet 50 Mg PO HS Tamsulosin HCl 0.4 Mg Cap.er.24h 0.4 Mg PO 1700 Cyanocobalamin Injection (Cyanocobalamin) 1,000 Mcg/Ml Inj 1,000 Mcg IJ MONTHLY ON THE 7TH Exelon (Rivastigmine) 9.5 Mg Patch 9.5 Mg TD DAILY Folic Acid 1 Mg Tablet 1 Mg PO DAILY Vitamin D3 (Cholecalciferol (Vitamin D3)) 1,000 Unit Tablet 2,000 Unit PO DAILY TAKES 2 (1000 UNIT) TABLETS Metformin HCl 500 Mg Tablet 500 Mg PO BID Colace (Docusate Sodium) 100 Mg Capsule 100 Mg PO BID Venlafaxine HCl ER (Venlafaxine HCl) 150 Mg Cap.er.24h 150 Mg PO DAILY Brovana (Arformoterol Tartrate) 15 Mcg/2 Ml Vial.neb 2 Ml NEB Q12H PRN Singulair (Montelukast Sodium) 10 Mg Tablet 10 Mg PO DAILY Loratadine 10 Mg Tablet 10 Mg PO DAILY Namenda (Memantine) 10 Mg Tablet 10 Mg PO BID Instructions to patient/family Please see electonic discharge instructions given to patient. Clinical Quality Measures DVT/VTE Risk/Contraindication: Risk Factor Score Per Nursin RFS Level Per Nursing on Admit: 4+=Very High MIKAYLA FRANCIS MD Nov 14, 2016 13:36
== END 2016-10-29 11:24 | disposition swing bed (61) | DRG 194 ==
LOC: EDUNIT# 13:26 → ER 13:27 → 4TH 15:03
PROVIDERS: ADMIT Internal Medicine; ATTEND Internal Medicine
DX: J18.9 Pneumonia, unspecified organism (principal); R00.0 Tachycardia, unspecified; E87.0 Hyperosmolality and hypernatremia; R53.1 Weakness; F32.9 Major depressive disorder, single episode, unspecified; K21.9 Gastro-esophageal reflux disease without esophagitis; R29.6 Repeated falls; F79 Unspecified intellectual disabilities; Z87.820 Personal history of traumatic brain injury
CPT/HCPCS: 36415; 71010; 71020; 73521; 80048; 80053; 82550; 83605; 84443; 85007; 85027; 87040; 94640; 94760; 96365

== ENCOUNTER 2016-10-29 09:27 | Inpatient (IN) | payer MEDICARE, MEDICAID ==
[~2016-10-29] VITALS: Ht 182.9 cm; Wt 88.5 kg
[2016-10-29] MEDS ORDERED: VENL150C98 PO (09:48)
[2016-10-29] MEDS ORDERED: LORA0.5T PO (09:48)
[2016-10-29] MEDS ORDERED: CHOL10003 PO (09:48)
[2016-10-29] MEDS ORDERED: GUAI100L13 PO (09:48)
[2016-10-29] MEDS ORDERED: TAMS0.4C2 PO (09:48)
[2016-10-29] MEDS ORDERED: RIVA1PAT3 TD (09:48)
[2016-10-29] MEDS ORDERED: IBUP-1773 PO (09:48)
[2016-10-29] MEDS ORDERED: IPRA3AMP NEB (09:48)
[2016-10-29] MEDS ORDERED: CARB15DR87 EACH EAR (09:48)
[2016-10-29] MEDS ORDERED: DOCU-143 PO (09:48)
[2016-10-29] MEDS ORDERED: ATOR20TA66 PO (09:48)
[2016-10-29] MEDS ORDERED: FOLI1TAB24 PO (09:48)
[2016-10-29] MEDS ORDERED: TRAZ-28 PO (09:48)
[2016-10-29] MEDS ORDERED: METF500T4 PO (09:48)
[2016-10-29] MEDS ORDERED: CNC1KV IJ (09:48)
[2016-10-29] MEDS ORDERED: MIRT15TA6 PO (09:48)
[2016-10-29] MEDS ORDERED: NEOM7.5D8 OS (09:48)
--- NOTE | 2016-10-29 10:54 | Physical Therapy Evaluation ---
PT Evaluation-General Medical Diagnosis Admission Date 10/26/16 Onset Date: Oct 26, 2016 Therapy Diagnosis Therapy Diagnosis: impaired mobility Height/Weight Height (Feet): 6 Height (Inches): 0 Weight (Pounds): 195 Weight (Ounces): 0.0 Referral Physician: Avis Neville Reason for Referral: Evaluation/Treatment, Gait Medical History Additional Medical History falls; old closed head injury Current History Patient resides at [facility]. He has had a persistent pneumonia. He was found on the floor after fall. Reason for fall is unknown. Admitted for IV antibiotics and therapy. Social History Home: [facility] Prior/Core FIM Prior Level of Function Functional [place] Measure 0=Not Assessed/NA 4=Minimal Assistance 1=Total Assistance 5=Supervision or Setup 2=Maximal Assistance 6=Modified Archer 3=Moderate Assistance 7=Complete Archer Bed Mobility: 4 Transfers (B,C,W/C) (FIM): 4 Gait: 4 PT Evaluation-Current Subjective Pt is friendly. He tries to be cooperative but has difficulty following commands. He has no c/o pain. He is not a good historian as to his prior level of function. Objective Problem Solving: Poor Attachments: Oxygen, IV ROM/Strength ROM Upper Extremities WFL ROM Lower Extremities WFL Strength Upper Extremities gross 4/5 Strenght Lower Extremities gross 4/5 Sensory Vision: Wears Glasses Hearing: Functional Transfers Functional Archer Measure 0=Not Assessed/NA 4=Minimal Assistance 1=Total Assistance 5=Supervision or Setup 2=Maximal Assistance 6=Modified [place] 3=Moderate Assistance 7=Complete Archer Transfers (B, C, W/C) (FIM): 3 Scootin Rollin Supine to/from Sit: 3 Sit to/from Stand: 4 Sit to Lying (QC): 3 Lying to Sitting/Side of Bed(Q: 3 Sit to Stand (QC): 3 Chair/Jlm-uk-Iowwl Xfer(QC): 3 Gait Does the Patient Walk?: Yes Mode of Locomotion: Both Anticipated Mode of Locomotion: Walk Gait (FIM): 3 Distance (FIM): 3=150 ft Distance: 150 Walk 50 ft with 2 Turns(QC): 3 Walk 150 ft (QC): 3 Gait Level of Assist: 3 Gait Persons Needed: 1 Gait Assistive Device: None Comments/Gait Description Pt needs constant cues to remind him what his task is. He has forward flexed posture with forward wt, leading to a rapid and uncontrolled forward motion. He is at risk of fall. Balance Sitting Static: Good Sitting Dynamic: Good Standing Static: Poor Standing Dynamic: Poor Assessment/Needs Pt has unsafe transfers and gait. He has difficulty understanding, processing, and staying on task. He will benefit from therapy to assess for assistive device and to work on mobility during his hospitalization to promote return to prior level of function. Rehab Potential: Guarded Post Rehab Potential-Barriers: cognition and memory PT Senior Living Goals Senior Living Goals PT Entry Level Machine Operator Goals Time Frame: Nov 09, 2016 Transfers (B,C,W/C) (FIM): 5 Sit to Lying (QC): 4 Lying-Sitting on Side/Bed(QC): 4 Sit to Stand (QC): 4 Chair/Rlx-hh-Aqztc Xfer(QC): 4 Does the Patient Walk: Yes Gait (FIM): 4 Gait distance (FIM): 3=150 ft Distance: 150 Walk 50ft with 2 Turns (QC): 4 Walk 150 ft (QC): 4 Gait Level of Assist: 4 Gait Assistive Device: FWW PT Plan Problem List Problem List: Activity Tolerance, Functional Strength, Gait, Transfer Treatment/Plan Treatment Plan: Continue Plan of Care Treatment Plan: Bed Mobility, Functional Activity Connie, Functional Strength, Gait # of days/week 6 Visits Per Week: 11 Minutes/Day (M-F): 20-30 Minutes/Day (Sat/Mccormick): 15 Pt/Family Agrees w/Plan: Yes Safety Risks/Education Patient Education: Gait Training, Transfer Techniques Teaching Recipient: Patient Teaching Methods: Demonstration Discharge Recommendations Target Placement residential Time/GCodes Time In: 900 Time Out: 930 Total Billed Treatment Time: 30 Total Billed Treatment visit, evaluation moderate complexity IRMA BURNS PT Oct 29, 2016 10:54
[2016-10-29] MEDS ORDERED: RT-ALBUTEROL SULF 2.5 MG/3 ML PRE-MIX VIAL INH PRN (11:30)
[2016-10-29] MEDS ORDERED: LORazepam 0.5 MG (ATIVAN) TABLET PO PRN (11:30)
[2016-10-29] MEDS ORDERED: CATHETER FLUSH 10 ML SYR IV PRN (11:45)
--- OUTSIDE RECORDS SUMMARY | 2016-10-29 11:50 | XMS REPORT | Continuity of Care Document ---
Author Author [facility] Organization [facility] Address Unknown Phone Unavailable Care Team Providers Care It Program Auditor Name Role Phone Jaylen Garcia PCP [phone] Source Comments Some departments are not documenting in the electronic medical record. If you do not see the information that you expected, contact Release of Information in the Health Information Management department at [phone] for further assistance in locating additional records.[facility] Active Allergies and Adverse Reactions [...]
--- NOTE | 2016-10-29 14:58 | Occupational Therapy Eval ---
OT Evaluation-General/PLF Medical Diagnosis Admission Date Oct 29, 2016 at 11:25 Medical Diagnosis: Pneumonia Onset Date: Oct 26, 2016 Therapy Diagnosis Therapy Diagnosis: weakness, decr self care Height/Weight Height (Feet): 6 Height (Inches): 0 Weight (Pounds): 195 Weight (Ounces): 0.0 Referral Physician: Sandrita Referral Reason: Evaluation/Treatment Medical History Pertinent Medical History: GERD Additional Medical History L knee surgery, constipation, depression, mentally challenged, possible hx CHI Current History Admitted through ED after fall at [facility]. Per staff, pt has been fighting pneumonia for some time. Reviewed History: Yes Social History Home: Assisted Living ([facility]) Current Living Status: Alone has a cat named Max ADL-Prior Level of Function ADL PLOF Comments Per Mamie at [facility], [place] has declined in his self care abilities since May when some of his medications were changed. He now requires one person assist for all of his ADLs. He does not initiate them and staff have to guide his limbs into his clothing. For the past 1-2 weeks he has been using a walker but before that could walk without assistance. Per Mamie, he has a long history of psychotropic medications and family history of Alzheimers. Mamie said that he could return if he needs only 1 person assist. Occupation: former teacher Drive Self: No OT Current Status Subjective Pt seen in room, up in bed, agreeable to OT. Pt reported he had no pain. Appearance Pt thought he was a [facility]. He did recognize this OT from [facility] Mental Status/Objective Patient Orientation: Person Current Glasses/Contacts: Yes Dentures/Partials: No (Teeth are inpoor condition) Upper Extremity ROM Pt had difficulty following instructions for ROM testing. Fingers in MP flexion and IP hyperextension. Some difficulty making a complete fist Upper Extremity Strength Unable to follow instructions for muscle testing. Grossly 4/5 bilat ADL-Treatment Functional [place] Measure 0=Not Assessed/NA 4=Minimal Assistance 1=Total Assistance 5=Supervision or Setup 2=Maximal Assistance 6=Modified [place] 3=Moderate Assistance 7=Complete IndependenceIRFPAI Quality Coding Scale 6 Independent with activity with or without an assistive device 5 Patient requires set up or clean up by helper. Patient completes activity by themselves 4 Supervision or touching assist (CGA). [place] provide cues , steadying assist 3 The helper provides less than half the effort to complete the activity 2 The helper provides more than half the effort to complete the activity 1 Dependent. The helper does all the effort to complete an activity 7 Patient refused to complete or attempt activity 9 The patient did not perform the activity before the current illness or injury 88 Not attempted due to Medical conditions or safety concerns Eating (FIM): 2 (Staff stab food and cue him to take bites. He does not initiate. ) Eating (QC): 2 Grooming (FIM): 2 (Pt was unable to wash face, brush teeth (a few brush strokes after set up), rinse mouth, comb hair) Oral Hygiene (QC): 2 Toileting (FIM): 2 (Per nursing,sometimes he is able to identify if he needs to go to the bathroom but is usually incontinent of urine. Wearing paper underwear. ) Toileting Hygiene (QC): 2 Toilet/Commode Transfer (FIM): 2 (Staff report he is able but needs cues. Generally incontinent) Toilet Transfer (QC): 2 Other Treatments Pt was unable to initiate steps to sit EOB. Difficulty following cues for ADLs. Also difficulty to understand verbal communication at times. Education OT Patient Education: Purpose of tx/functional activities Teaching Recipient: Patient Response to Teaching: Reinforcement Needed OT Short Term Goals Short Term Goals 1=Demonstrate adherence to instructed precautions during ADL tasks. 2=Patient will verbalize/demonstrate understanding of assistive devices/ modifications for ADL. 3=Patient will improve strength/tolerance for activity to enable patient to perform ADL's. OT Acupuncturist Goals Senior Care Goals Time Frame: Nov 09, 2016 Eating (FIM): 4 Eating (QC): 4 Groomin Oral Hygiene (QC): 4 Upper Body Dressing(FIM): 4 Lower Body Dressing(FIM): 4 Toileting(FIM): 4 Toileting Hygiene (QC): 4 Toilet/Commode Transfer(FIM): 4 Toilet/Commode Transfer (QC): 4 Additional Goals: 2-Verbalize Understanding, 3-ImproveStrength/Connie 1=Demonstrate adherence to instructed precautions during ADL tasks. 2=Patient will verbalize/demonstrate understanding of assistive devices/ modifications for ADL. 3=Patient will improve strength/tolerance for activity to enable patient to perform ADL's. OT Education/Plan Problem List/Assessment Assessment: Decreased Safety Aware, Dependent Transfers (Motor planning and initiation), Impaired Self-Care Skills Discharge Recommendations Plan/Recommendations: Continue POC Therapy D/C Recommendations: Assisted Living ([facility]) Target Placement Back to [facility] Treatment Plan/Plan of Care Treatment,Training & Education: Yes Patient would benefit from OT for education, treatment and training to promote independence in ADL's, mobility, safety and/or upper extremity function for ADL' s. Plan of Care: ADL Retraining, Functional Mobility, UE Funct Exercise/Act Treatment Duration: Nov 09, 2016 # of days/week 5 Visits Per Week: 5 Agreement: Yes Rehab Potential: Guarded Time/GCodes Start Time: 14:16 Stop Time: 14:41 Total Time Billed (hr/min): 25 Billed Treatment Time visit, low intensity evaluation 25 minutes DAKOTA CLARK OT Oct 29, 2016 14:58
--- NOTE | 2016-10-29 16:44 | Physical Therapy Daily Note ---
PT Daily Note-Current Subjective Pt laying supine with head tilt back uncomfortably upon arrival. Pt agrees to PT for ambulation. Mental Status Patient Orientation: Person, Unable to Assess Attachments: Oxygen Transfers Functional [place] Measure 0=Not Assessed/NA 4=Minimal Assistance 1=Total Assistance 5=Supervision or Setup 2=Maximal Assistance 6=Modified [place] 3=Moderate Assistance 7=Complete IndependenceIRFPAI Quality Coding Scale 6 Independent with activity with or without an assistive device 5 Patient requires set up or clean up by helper. Patient completes activity by themselves 4 Supervision or touching assist (CGA). [place] provide cues , steadying assist 3 The helper provides less than half the effort to complete the activity 2 The helper provides more than half the effort to complete the activity 1 Dependent. The helper does all the effort to complete an activity 7 Patient refused to complete or attempt activity 9 The patient did not perform the activity before the current illness or injury 88 Not attempted due to Medical conditions or safety concerns Transfers (B, C, W/C) (FIM): 1 Scootin Supine to/from Sit: 2 Sit to/from Stand: 2 Sit to Lying (QC): 2 Sit to Stand (QC): 2 Weight Bearing Weight Bearing Restriction: Full Weight Bearing Location Restriction: LE Bilateral Wheelchair Training Does the Pt Use a Wheelchair?: No Exercises Seated Therapy Exercises: Sit to stand Seated Reps: 5 Treatments PT and tech asssit pt with transferring from supine to sitting at EOB. PT has difficulty scooting to EOB as well is Max X 2 for sit to stand. Attempted standing for both loly cleaning, pulling up brief as well as testing if pt could stand so pt could ambulate as pt did this morning. Pt grew more tired the more attempts at standing occured. Pt was transferred at Mod A X 2 for standing to sitting to supine. Pt was repositioned in bed to both sit up in bed and prop head up in place instead of leaning back to promote better breathing to fight pneumonia. Pt was left with all needs met at end of tx. Assessment Current Status: Poor Progress Pt was very weak and grew more tired as tx went along. Pt was walking FAMILY PSYCHOLOGIST this morning but unable to stand upright this afternoon. Pt maybe having possible Sundowners PT Collection Systems Technician Goals Collection Systems Technician Goals PT Collection Systems Technician Goals Time Frame: Nov 09, 2016 Transfers (B,C,W/C) (FIM): 5 Sit to Lying (QC): 4 Lying-Sitting on Side/Bed(QC): 4 Sit to Stand (QC): 4 Rollin Chair/Cgx-ca-Btezj Xfer(QC): 4 Does the Patient Walk: Yes Gait (FIM): 4 Gait distance (FIM): 3=150 ft Distance: 150 Walk 50ft with 2 Turns (QC): 4 Walk 150 ft (QC): 4 Gait Level of Assist: 4 Gait Assistive Device: FWW PT Plan Problem List Problem List: Activity Tolerance, Functional Strength, Safety, Balance, Transfer, Bed Mobility Treatment/Plan Treatment Plan: Continue Plan of Care Treatment Plan: Bed Mobility, Functional Activity Connie, Functional Strength, Gait Visits Per Week: 11 Minutes/Day (M-F): 20-30 Minutes/Day (Sat/Mccormick): 15 Safety Risks/Education Patient Education: Transfer Techniques, Correct Positioning, Disease Process, Safety Issues Teaching Recipient: Patient, Family Teaching Methods: Discussion Response to Teaching: Verbalize Understanding Time/GCodes Time In: 1515 Time Out: 1550 Total Billed Treatment Time: 35 Total Billed Treatment Visit, FA X2 (35m) ADELIA NAVA PTA Oct 29, 2016 16:44
[2016-10-29] MEDS: ENOXAPARIN 40 MG/0.4 ML (LOVENOX) SYR SC SCH (17:16)
[2016-10-29] MEDS: ACETAMINOPHEN 325 MG TABLET/CAPLET (TYLENOL) PO PRN ×2 (17:22→22:22)
[2016-10-29 18:59] VITALS: BP 126/75
[2016-10-29] MEDS: ARFORMOTEROL 15 MCG/2 ML (BROVANA) INH SOLUTIION IH SCH (19:45)
[2016-10-29] MEDS: MEMANTINE 10 MG (NAMENDA) TABLET PO SCH (20:05)
[2016-10-29] MEDS: risperiDONE 1 MG (RisperDAL) TAB PO SCH (20:05)
[2016-10-29] MEDS: MIRTAZAPINE 15 MG (REMERON) TAB PO SCH (20:05)
[2016-10-30] MEDS: ACETAMINOPHEN 325 MG TABLET/CAPLET (TYLENOL) PO PRN ×2 (06:42→17:52)
[2016-10-30] MEDS: ARFORMOTEROL 15 MCG/2 ML (BROVANA) INH SOLUTIION IH SCH ×2 (07:02→19:48)
[2016-10-30] MEDS ORDERED: cefTRIAXone INJECTION 1,000 MG in NS (IVPB) 50 ML IV SCH (09:00)
--- NOTE | 2016-10-30 09:35 | Physical Therapy Daily Note ---
PT Daily Note-Current Subjective Agreeable. "I like the Today Show, will you find the Today Show?" Pain Numeric Pain Scale: 0-No Pain Location: No Pain Reported Mental Status Patient Orientation: Person, Unable to Assess (unsure--pt has difficulty answering questions) Transfers Functional [place] Measure 0=Not Assessed/NA 4=Minimal Assistance 1=Total Assistance 5=Supervision or Setup 2=Maximal Assistance 6=Modified [place] 3=Moderate Assistance 7=Complete IndependenceIRFPAI Quality Coding Scale 6 Independent with activity with or without an assistive device 5 Patient requires set up or clean up by helper. Patient completes activity by themselves 4 Supervision or touching assist (CGA). [place] provide cues , steadying assist 3 The helper provides less than half the effort to complete the activity 2 The helper provides more than half the effort to complete the activity 1 Dependent. The helper does all the effort to complete an activity 7 Patient refused to complete or attempt activity 9 The patient did not perform the activity before the current illness or injury 88 Not attempted due to Medical conditions or safety concerns Transfers (B, C, W/C) (FIM): 3 Sit to Lying (QC): 3 (mod assist to sit up with max cues for sequencing. ) Sit to Stand (QC): 3 (mod assist with max cues for sequencing) Pt needs max verbal and tactile cues to transition. Once standing, pt severely forward flexed and does not correct with cues. Gait Training Does the Patient Walk?: Yes Distance (FIM): 1=up to 49 ft Distance: 30 ft Gait Assistive Device: Handheld Assist (x2) Pt ambulated x 30 ft with SENIOR PROJECT COORDINATOR of 2 with max cues for posture and to take steps. Severely forward flexed at hips and needed constant cues to take a step and move forward; pt then needed mod assist to turn at the hips to sit in the chair. Up in chair post treatment with oxygen in situ and chair alarm activated and needs met. Today show on the TV. Assessment Pt needs max verbal and tactile cues to participate. Pleasant and wants to be cooperative but difficulty with following direction. Forward flexed at hips and head down; unsafe gait pattern and unsafe to attempt further gait distance due to limited ability to follow cues and risk of falls. PT Plastic Parts Fabricator Trimmer Goals Nursing Home Goals PT Plastic Parts Fabricator Trimmer Goals Time Frame: Nov 09, 2016 Transfers (B,C,W/C) (FIM): 5 Sit to Lying (QC): 4 Lying-Sitting on Side/Bed(QC): 4 Sit to Stand (QC): 4 Rollin Chair/Tby-xp-Kiazd Xfer(QC): 4 Does the Patient Walk: Yes Gait (FIM): 4 Gait distance (FIM): 3=150 ft Distance: 150 Walk 50ft with 2 Turns (QC): 4 Walk 150 ft (QC): 4 Gait Level of Assist: 4 Gait Assistive Device: FWW PT Plan Problem List Problem List: Activity Tolerance, Functional Strength, Safety, Gait, Transfer Treatment/Plan Treatment Plan: Continue Plan of Care Treatment Plan: Bed Mobility, Functional Activity Connie, Functional Strength, Gait Visits Per Week: 11 Minutes/Day (M-F): 20-30 Minutes/Day (Sat/Mccormick): 15 Safety Risks/Education Patient Education: Gait Training, Transfer Techniques, Safety Issues Teaching Recipient: Patient Teaching Methods: Demonstration, Discussion Response to Teaching: Unable to Comprehend (difficulty following cues. ), Reinforcement Needed Discharge Recommendations Plan Progress functional mobility as pt abl.e Time/GCodes Time In: 820 Time Out: 849 Total Billed Treatment Time: 24 Total Billed Treatment visit FA 24 BETTIE BAUGH PT Oct 30, 2016 09:35
[2016-10-30] MEDS: LORATADINE (CLARITIN) 10 MG TAB PO SCH (09:45)
[2016-10-30] MEDS: VENlafaxine XR 75 MG (EFFEXOR XR) CAP PO SCH (09:45)
[2016-10-30] MEDS: MONTELUKAST 10 MG (SINGULAIR) TAB PO SCH (09:45)
[2016-10-30] MEDS: MEMANTINE 10 MG (NAMENDA) TABLET PO SCH ×2 (09:46→20:02)
[2016-10-30] MEDS: cefTRIAXone INJECTION 1,000 MG in NS (IVPB) 50 ML IV SCH (09:46)
[2016-10-30] MEDS: risperiDONE 0.25 MG (RisperDAL) TAB PO SCH (09:47)
[2016-10-30] MEDS: AZITHROMYCIN INJECTION 500 MG in NS (IVPB) 250 ML IV SCH (10:21)
--- NOTE | 2016-10-30 11:13 | Occupational Ther Daily Note ---
OT Current Status-Daily Note Subjective Pt seen in room, up in recliner, agreeable to OT. Oriented to person. Mental Status/Objective Functional [place] Measure 0=Not Assessed/NA 4=Minimal Assistance 1=Total Assistance 5=Supervision or Setup 2=Maximal Assistance 6=Modified [place] 3=Moderate Assistance 7=Complete [place] ADL-Treatment Functional [place] Measure 0=Not Assessed/NA 4=Minimal Assistance 1=Total Assistance 5=Supervision or Setup 2=Maximal Assistance 6=Modified [place] 3=Moderate Assistance 7=Complete IndependenceIRFPAI Quality Coding Scale 6 Independent with activity with or without an assistive device 5 Patient requires set up or clean up by helper. Patient completes activity by themselves 4 Supervision or touching assist (CGA). [place] provide cues , steadying assist 3 The helper provides less than half the effort to complete the activity 2 The helper provides more than half the effort to complete the activity 1 Dependent. The helper does all the effort to complete an activity 7 Patient refused to complete or attempt activity 9 The patient did not perform the activity before the current illness or injury 88 Not attempted due to Medical conditions or safety concerns Grooming (FIM): 3 (He was able to put toothpaste on toothbrush and brush his teeth but needed cues to brush all areas and physical assistance to help brush them for thoroughness. He also needed skilled cues for sequencing and initiation for each step, including rinsing his mouth. He could wash his face with skilled cues to wash different part. Had difficulty putting glasses back on - they are on a strap around his neck. ) Pt left up in recliner, all needs met. Pt encouraged to feed himself at lunch Education OT Patient Education: Purpose of tx/functional activities OT Short Term Goals Short Term Goals 1=Demonstrate adherence to instructed precautions during ADL tasks. 2=Patient will verbalize/demonstrate understanding of assistive devices/ modifications for ADL. 3=Patient will improve strength/tolerance for activity to enable patient to perform ADL's. OT [facility] Goals Braiding Machine Operator Goals Time Frame: Nov 09, 2016 Eating (FIM): 4 Eating (QC): 4 Groomin Oral Hygiene (QC): 4 Upper Body Dressing(FIM): 4 Lower Body Dressing(FIM): 4 Toileting(FIM): 4 Toileting Hygiene (QC): 4 Toilet/Commode Transfer(FIM): 4 Toilet/Commode Transfer (QC): 4 Additional Goals: 2-Verbalize Understanding, 3-ImproveStrength/Connie 1=Demonstrate adherence to instructed precautions during ADL tasks. 2=Patient will verbalize/demonstrate understanding of assistive devices/ modifications for ADL. 3=Patient will improve strength/tolerance for activity to enable patient to perform ADL's. OT Education/Plan Discharge Recommendations Plan/Recommendations: Continue POC Treatment Plan/Plan of Care Patient would benefit from OT for education, treatment and training to promote independence in ADL's, mobility, safety and/or upper extremity function for ADL' s. Plan of Care: ADL Retraining, Functional Mobility, UE Funct Exercise/Act Treatment Duration: Nov 09, 2016 Visits Per Week: 5 Agreement: Yes Rehab Potential: Guarded Time/GCodes Start Time: 10:30 Stop Time: 10:45 Total Time Billed (hr/min): 15 Billed Treatment Time visit, ADL 15 minutes DAKOTA CLARK OT Oct 30, 2016 11:13
[2016-10-30 12:49] LABS: BASOPHILS % (AUTO) 0 % (0-10); EOSINOPHILS % (AUTO) 0 % (0-10); LYMPHOCYTES # (AUTO) 0.8 X 10^3 (1.0-4.0); LYMPHOCYTES % (AUTO) 8 % (12-44); MEAN CORPUSCULAR HEMOGLOBIN 31 PG (25-34); MEAN CORPUSCULAR HGB CONC 32 G/DL (32-36); MEAN CORPUSCULAR VOLUME 96 FL (80-99); MEAN PLATELET VOLUME 10.3 FL (7.4-10.4); MONOCYTES # (AUTO) 0.5 X 10^3 (0.0-1.0); MONOCYTES % (AUTO) 5 % (0-12); NEUTROPHILS # (AUTO) 8.2 X 10^3 (1.8-7.8); NEUTROPHILS % (AUTO) 87 % (42-75); PLATELET COUNT 236 10^3/uL (130-400); RED BLOOD COUNT 3.62 10^6/uL (4.35-5.85); WHITE BLOOD COUNT 9.5 10^3/uL (4.3-11.0)
--- NOTE | 2016-10-30 15:03 | Physical Therapy Daily Note ---
PT Daily Note-Current Subjective Pt agrees to work with therapy and answers questions appropriately but is not able to follow commands. Mental Status Patient Orientation: Person, Confused, Place, Mumbles Attachments: Oxygen Transfers Functional [place] Measure 0=Not Assessed/NA 4=Minimal Assistance 1=Total Assistance 5=Supervision or Setup 2=Maximal Assistance 6=Modified [place] 3=Moderate Assistance 7=Complete IndependenceIRFPAI Quality Coding Scale 6 Independent with activity with or without an assistive device 5 Patient requires set up or clean up by helper. Patient completes activity by themselves 4 Supervision or touching assist (CGA). [place] provide cues , steadying assist 3 The helper provides less than half the effort to complete the activity 2 The helper provides more than half the effort to complete the activity 1 Dependent. The helper does all the effort to complete an activity 7 Patient refused to complete or attempt activity 9 The patient did not perform the activity before the current illness or injury 88 Not attempted due to Medical conditions or safety concerns Transfers (B, C, W/C) (FIM): 4 Supine to/from Sit: 4 Sit to/from Stand: 4 Bed to/from Chair: 4 Pt needs minimal physical assist with transfers but requires constant verbal and tactile cues. Gait Training Does the Patient Walk?: Yes Distance (FIM): 1=up to 49 ft Distance: 20ft Gait Level of Assist: 2 Gait Persons Needed: 2 Gait Assistive Device: Handheld Assist Pt severely forward flexed at the waist. he is able at times to take steps, but is not able to motor plan walking. He appears to have short term memory problems that prevent him from staying on task. He starts to walk and then freezes and cannot remember what he is supposed to be doing. Exercises Standing: Sit to Stand Standing Reps: 6 Assessment Current Status: Fair Progress In patient's current cognitive condition he is not reaching full benefit of therapy services. Until he can process commands and participate in therapy his treatment will be reduced to daily. PT Impregnator Operator Goals [facility] Goals PT [facility] Goals Time Frame: Nov 09, 2016 Transfers (B,C,W/C) (FIM): 5 Sit to Lying (QC): 4 Lying-Sitting on Side/Bed(QC): 4 Sit to Stand (QC): 4 Rollin Chair/Fqa-kt-Hgitu Xfer(QC): 4 Does the Patient Walk: Yes Gait (FIM): 4 Gait distance (FIM): 3=150 ft Distance: 150 Walk 50ft with 2 Turns (QC): 4 Walk 150 ft (QC): 4 Gait Level of Assist: 4 Gait Assistive Device: FWW PT Plan Problem List Problem List: Activity Tolerance, Balance, Gait, Transfer Treatment/Plan Treatment Plan: Continue Plan of Care Treatment Plan: Bed Mobility, Functional Activity Connie, Functional Strength, Gait Visits Per Week: 11 Minutes/Day (M-F): 20-30 Minutes/Day (Sat/Mccormick): 15 Discharge Recommendations Plan Plan to reduce therapy to 6 sessions per week being seen daily for gait and functional activity. If cognition improves to a point that patient can participate in skilled therapy, frequency will resume at 2x per day. Barriers to Progress cognition Time/GCodes Time In: 1430 Time Out: 1450 Total Billed Treatment Time: 20 Total Billed Treatment visit, FA 15min, gait 5 min IRMA BURNS PT Oct 30, 2016 15:02
[2016-10-30] MEDS: ENOXAPARIN 40 MG/0.4 ML (LOVENOX) SYR SC SCH (16:06)
[2016-10-30 18:00] VITALS: BP 123/76
[2016-10-30] MEDS: risperiDONE 1 MG (RisperDAL) TAB PO SCH (20:02)
[2016-10-30] MEDS: MIRTAZAPINE 15 MG (REMERON) TAB PO SCH (20:02)
[2016-10-31] MEDS: ACETAMINOPHEN 325 MG TABLET/CAPLET (TYLENOL) PO PRN ×2 (04:37→16:17)
[2016-10-31 06:00] VITALS: BP 127/79
[2016-10-31] MEDS: ARFORMOTEROL 15 MCG/2 ML (BROVANA) INH SOLUTIION IH SCH ×2 (07:50→19:07)
[2016-10-31] MEDS: cefTRIAXone INJECTION 1,000 MG in NS (IVPB) 50 ML IV SCH (09:16)
[2016-10-31] MEDS: risperiDONE 0.25 MG (RisperDAL) TAB PO SCH (09:20)
[2016-10-31] MEDS: VENlafaxine XR 75 MG (EFFEXOR XR) CAP PO SCH (09:20)
[2016-10-31] MEDS: MONTELUKAST 10 MG (SINGULAIR) TAB PO SCH (09:20)
[2016-10-31] MEDS: LORATADINE (CLARITIN) 10 MG TAB PO SCH (09:20)
[2016-10-31] MEDS: MEMANTINE 10 MG (NAMENDA) TABLET PO SCH ×2 (09:20→20:01)
--- NOTE | 2016-10-31 09:33 | Occupational Ther Daily Note ---
OT Current Status-Daily Note Subjective Pt seen in room, up in bed, agreeable to OT. Reported no pain Mental Status/Objective Patient Orientation: Person, Confused Functional [place] Measure 0=Not Assessed/NA 4=Minimal Assistance 1=Total Assistance 5=Supervision or Setup 2=Maximal Assistance 6=Modified [place] 3=Moderate Assistance 7=Complete [place] ADL-Treatment Functional [place] Measure 0=Not Assessed/NA 4=Minimal Assistance 1=Total Assistance 5=Supervision or Setup 2=Maximal Assistance 6=Modified [place] 3=Moderate Assistance 7=Complete IndependenceIRFPAI Quality Coding Scale 6 Independent with activity with or without an assistive device 5 Patient requires set up or clean up by helper. Patient completes activity by themselves 4 Supervision or touching assist (CGA). [place] provide cues , steadying assist 3 The helper provides less than half the effort to complete the activity 2 The helper provides more than half the effort to complete the activity 1 Dependent. The helper does all the effort to complete an activity 7 Patient refused to complete or attempt activity 9 The patient did not perform the activity before the current illness or injury 88 Not attempted due to Medical conditions or safety concerns Grooming (FIM): 3 (Pt needed physical, verbal, visual cues to brush teeth. Initiated taking cap off toothpaste but was not able to squeeze toothpaste out. Difficulty sequencing task, needing skilled cues. Able to wash mouth when presented with warm washcloth but max cues needed to wash other parts of face. ) Performance about the same as yesterday. Pt left up in bed, 4 rails up, with nursing in room. Education OT Patient Education: Modified ADL techniques Teaching Recipient: Patient Response to Teaching: Reinforcement Needed OT Short Term Goals Short Term Goals 1=Demonstrate adherence to instructed precautions during ADL tasks. 2=Patient will verbalize/demonstrate understanding of assistive devices/ modifications for ADL. 3=Patient will improve strength/tolerance for activity to enable patient to perform ADL's. OT Long-Term Goals Long-Term Goals Time Frame: Nov 09, 2016 Eating (FIM): 4 Eating (QC): 4 Groomin Oral Hygiene (QC): 4 Upper Body Dressing(FIM): 4 Lower Body Dressing(FIM): 4 Toileting(FIM): 4 Toileting Hygiene (QC): 4 Toilet/Commode Transfer(FIM): 4 Toilet/Commode Transfer (QC): 4 Additional Goals: 2-Verbalize Understanding, 3-ImproveStrength/Connie 1=Demonstrate adherence to instructed precautions during ADL tasks. 2=Patient will verbalize/demonstrate understanding of assistive devices/ modifications for ADL. 3=Patient will improve strength/tolerance for activity to enable patient to perform ADL's. OT Education/Plan Discharge Recommendations Plan/Recommendations: Continue POC Treatment Plan/Plan of Care Patient would benefit from OT for education, treatment and training to promote independence in ADL's, mobility, safety and/or upper extremity function for ADL' s. Plan of Care: ADL Retraining, Functional Mobility, UE Funct Exercise/Act Treatment Duration: Nov 09, 2016 Visits Per Week: 5 Agreement: Yes Rehab Potential: Guarded Time/GCodes Start Time: 09:05 Stop Time: 09:25 Total Time Billed (hr/min): 20 Billed Treatment Time visit, 20 minutes ADL DAKOTA CLARK OT Oct 31, 2016 09:33
[2016-10-31] MEDS: AZITHROMYCIN INJECTION 500 MG in NS (IVPB) 250 ML IV SCH (10:07)
--- NOTE | 2016-10-31 11:06 | Progress Note-Hospitalist ---
Progress Note Progress Notes/Assess & Plan Date Seen 10/31/16 Diagonsis/Assessment & Plan Chart Review: Max fever 101 BP stable No labs today will order for tomorrow RLL pneumonia currently treated with Zmax and Rocephin so after conferring with Dr. Remy we will change to Zosyn drug room operator: RN has no requests at this time. Patient Interview: Pt unable to recall when his last BM was, but RN states that it was yesterday. Physical exam stable. Pt seems disoriented. Pt denies having any pain currently. Moira 101, pleasant, chronically ill, slow to respond but that is chronic in nature from head injury Regular rate and rhythm, diminished breath sounds in the bases and poor excursion No edema Assessment: Right lower lobe pneumonia now with recurrent fever after several days of IV antibiotic of Rocephin and Zithromax changing to Zosyn monitoring closely Head injury with slow response chronically Overall debility and poor prognosis considering poor excursion on pulmonary exam and lack of ability to recover completely Plan: Check labs in AM Check CXR tomorrow Maintain swingbed for 4 more days of antibiotics after today Change Zmax and Rocephin for RLL pneumonia to Zosyn. Scribed by Dov Lara under the direct supervision of Dr. Wall. LIDIA WALL DO Oct 31, 2016 11:06
[2016-10-31] MEDS ORDERED: PIPERACILLIN SODIUM/TAZOBACTAM 4.5 GM in NS (IVPB) 100 ML IV NR (11:35)
--- NOTE | 2016-10-31 13:50 | Physical Therapy Daily Note ---
PT Daily Note-Current Subjective Pt laying supine in bed. Pt agrees to PT. Mental Status Patient Orientation: Person, Unable to Assess Attachments: Oxygen Transfers Functional [place] Measure 0=Not Assessed/NA 4=Minimal Assistance 1=Total Assistance 5=Supervision or Setup 2=Maximal Assistance 6=Modified [place] 3=Moderate Assistance 7=Complete IndependenceIRFPAI Quality Coding Scale 6 Independent with activity with or without an assistive device 5 Patient requires set up or clean up by helper. Patient completes activity by themselves 4 Supervision or touching assist (CGA). [place] provide cues , steadying assist 3 The helper provides less than half the effort to complete the activity 2 The helper provides more than half the effort to complete the activity 1 Dependent. The helper does all the effort to complete an activity 7 Patient refused to complete or attempt activity 9 The patient did not perform the activity before the current illness or injury 88 Not attempted due to Medical conditions or safety concerns Transfers (B, C, W/C) (FIM): 1 Scootin Roll Left to Right (QC): 1 Supine to/from Sit: 1 Sit to/from Stand: 1 Sit to Lying (QC): 2 Sit to Stand (QC): 1 Weight Bearing Weight Bearing Restriction: Full Weight Bearing Location Restriction: LE Bilateral Wheelchair Training Does the Pt Use a Wheelchair?: No Exercises Seated Therapy Exercises: Sit to stand Seated Reps: 2 Treatments Pt transfers at Max A as well as sit to stand using FWW for support at Max A X2. Pt doesn't stand upright and doesn't stand for long. Assessment Current Status: Poor Progress Pt fatigues easy and cannot stand for long. Pt is confused and has trouble following directions. PT Shelter Goals Security Technician Goals PT Shelter Goals Time Frame: Nov 09, 2016 Transfers (B,C,W/C) (FIM): 5 Sit to Lying (QC): 4 Lying-Sitting on Side/Bed(QC): 4 Sit to Stand (QC): 4 Rollin Chair/Lxr-bz-Rfymy Xfer(QC): 4 Does the Patient Walk: Yes Gait (FIM): 4 Gait distance (FIM): 3=150 ft Distance: 150 Walk 50ft with 2 Turns (QC): 4 Walk 150 ft (QC): 4 Gait Level of Assist: 4 Gait Assistive Device: FWW PT Plan Problem List Problem List: Activity Tolerance, Functional Strength, Safety, Balance, Gait, Transfer, Bed Mobility Treatment/Plan Treatment Plan: Continue Plan of Care Treatment Plan: Bed Mobility, Functional Activity Connie, Functional Strength, Gait Visits Per Week: 11 Minutes/Day (M-F): 20-30 Minutes/Day (Sat/Mccormick): 15 Safety Risks/Education Patient Education: Transfer Techniques, Correct Positioning, Safety Issues Teaching Recipient: Patient Teaching Methods: Discussion Response to Teaching: Verbalize Understanding Time/GCodes Time In: 850 Time Out: 905 Total Billed Treatment Time: 15 Total Billed Treatment visit, BERHANE (15m) ADELIA NAVA PTA Oct 31, 2016 13:50
[2016-10-31] MEDS: ENOXAPARIN 40 MG/0.4 ML (LOVENOX) SYR SC SCH (16:19)
[2016-10-31 18:00] VITALS: BP 118/63
[2016-10-31] MEDS: PIPERACILLIN SODIUM/TAZOBACTAM 4.5 GM in NS (IVPB) 100 ML IV SCH (18:22)
[2016-10-31] MEDS: MIRTAZAPINE 15 MG (REMERON) TAB PO SCH (20:02)
[2016-10-31] MEDS: risperiDONE 1 MG (RisperDAL) TAB PO SCH (20:02)
[2016-11-01] MEDS: PIPERACILLIN SODIUM/TAZOBACTAM 4.5 GM in NS (IVPB) 100 ML IV SCH ×3 (03:01→18:41)
[2016-11-01] MEDS: ACETAMINOPHEN 325 MG TABLET/CAPLET (TYLENOL) PO PRN ×2 (03:45→18:41)
[2016-11-01 04:53] LABS: BASOPHILS % (AUTO) 0 % (0-10); EOSINOPHILS % (AUTO) 0 % (0-10); LYMPHOCYTES % (AUTO) 14 % (12-44); MEAN CORPUSCULAR HEMOGLOBIN 30 PG (25-34); MEAN CORPUSCULAR HGB CONC 32 G/DL (32-36); MEAN CORPUSCULAR VOLUME 96 FL (80-99); MEAN PLATELET VOLUME 10.3 FL (7.4-10.4); MONOCYTES # (AUTO) 0.5 X 10^3 (0.0-1.0); MONOCYTES % (AUTO) 6 % (0-12); NEUTROPHILS # (AUTO) 5.9 X 10^3 (1.8-7.8); NEUTROPHILS % (AUTO) 79 % (42-75); PLATELET COUNT 251 10^3/uL (130-400); RED BLOOD COUNT 3.31 10^6/uL (4.35-5.85); RED CELL DISTRIBUTION WIDTH 13.8 % (10.0-14.5); WHITE BLOOD COUNT 7.5 10^3/uL (4.3-11.0)
[2016-11-01 05:08] LABS: ALANINE AMINOTRANSFERASE 62 U/L (0-55); ALBUMIN 2.7 G/DL (3.2-4.5); ANION GAP 12 MMOL/L (5-14); ASPARTATE AMINO TRANSFERASE 53 U/L (5-34); BILIRUBIN,TOTAL 0.4 MG/DL (0.1-1.0); BLOOD UREA NITROGEN 13 MG/DL (7-18); BUN/CREATININE RATIO 19; CALCIUM 8.8 MG/DL (8.5-10.1); CARBON DIOXIDE 25 MMOL/L (21-32); CHLORIDE 109 MMOL/L (98-107); GFR ESTIMATED > 60; GLUCOSE 143 MG/DL (70-105); POTASSIUM 3.7 MMOL/L (3.6-5.0); SODIUM 146 MMOL/L (135-145); TOTAL PROTEIN 5.6 G/DL (6.4-8.2)
[2016-11-01 06:00] VITALS: BP 121/70
[2016-11-01] MEDS: ARFORMOTEROL 15 MCG/2 ML (BROVANA) INH SOLUTIION IH SCH ×2 (08:02→19:17)
[2016-11-01] MEDS: LORATADINE (CLARITIN) 10 MG TAB PO SCH (08:48)
[2016-11-01] MEDS: MEMANTINE 10 MG (NAMENDA) TABLET PO SCH ×2 (08:49→20:48)
[2016-11-01] MEDS: MONTELUKAST 10 MG (SINGULAIR) TAB PO SCH (08:49)
[2016-11-01] MEDS: VENlafaxine XR 75 MG (EFFEXOR XR) CAP PO SCH (08:49)
[2016-11-01] MEDS: risperiDONE 0.25 MG (RisperDAL) TAB PO SCH (09:02)
--- NOTE | 2016-11-01 09:45 | Physical Therapy Daily Note ---
PT Daily Note-Current Subjective Pavan remembered me from PT at [facility]. Said he will try to walk so he can get back to [place]. No complaints of pain. Mental Status Patient Orientation: Person, Place Transfers Functional [place] Measure 0=Not Assessed/NA 4=Minimal Assistance 1=Total Assistance 5=Supervision or Setup 2=Maximal Assistance 6=Modified [place] 3=Moderate Assistance 7=Complete IndependenceIRFPAI Quality Coding Scale 6 Independent with activity with or without an assistive device 5 Patient requires set up or clean up by helper. Patient completes activity by themselves 4 Supervision or touching assist (CGA). [place] provide cues , steadying assist 3 The helper provides less than half the effort to complete the activity 2 The helper provides more than half the effort to complete the activity 1 Dependent. The helper does all the effort to complete an activity 7 Patient refused to complete or attempt activity 9 The patient did not perform the activity before the current illness or injury 88 Not attempted due to Medical conditions or safety concerns Transfers (B, C, W/C) (FIM): 1 (Assist x 2) Sit to/from Stand: 1 Weight Bearing Weight Bearing Restriction: Weight Bearing/Tolerated Gait Training Does the Patient Walk?: Yes Distance (FIM): 1=up to 49 ft Distance: Room to elevator. approx 80 ft. Gait Persons Needed: 2 Gait Assistive Device: FWW Flexed posture, holding on to FWW tightly and needing moderate guidance to steer it. He was able to advance each foot and walked at a steady pace. Sit to stand required A x 2 and multiple attempts and encouragement for Pavan to help. Assessment Current Status: Fair Progress Pavan's participation fluctuates. At times he is "frozen" and requires max assist x 2 to transfer. Today he was able to help and walked with assist x 2. He is not at his PLOF and would benefit from cont PT. PT Manager Support Goals Manager Support Goals PT Manager Support Goals Time Frame: Nov 09, 2016 Transfers (B,C,W/C) (FIM): 5 Sit to Lying (QC): 4 Lying-Sitting on Side/Bed(QC): 4 Sit to Stand (QC): 4 Rollin Chair/Amj-mi-Pdscd Xfer(QC): 4 Does the Patient Walk: Yes Gait (FIM): 4 Gait distance (FIM): 3=150 ft Distance: 150 Walk 50ft with 2 Turns (QC): 4 Walk 150 ft (QC): 4 Gait Level of Assist: 4 Gait Assistive Device: FWW PT Plan Treatment/Plan Treatment Plan: Continue Plan of Care Treatment Plan: Bed Mobility, Functional Activity Connie, Functional Strength, Gait Visits Per Week: 11 Minutes/Day (M-F): 20-30 Minutes/Day (Sat/Mccormick): 15 Time/GCodes Time In: 925 Time Out: 940 Total Billed Treatment Time: 15 Total Billed Treatment visit, gt G Codes Necessary: DERRICK Oorzco PT Nov 01, 2016 09:45
[2016-11-01] MEDS ORDERED: FUROSEMIDE 40 MG/4 ML INJ (LASIX) IVP NR (10:12)
[2016-11-01] MEDS ORDERED: CATHETER FLUSH 10 ML SYR IV PRN (10:15)
[2016-11-01] MEDS ORDERED: IOHEXOL 350 MG/ML 100 ML (OMNIPAQUE 350) VIAL IV ONE (10:15)
[2016-11-01] MEDS ORDERED: NS 100 ML (IVPB) BAG IV ONE (10:15)
--- NOTE | 2016-11-01 10:27 | Progress Note-Hospitalist ---
Progress Note Progress Notes/Assess & Plan Date Seen 11/01/16 Diagonsis/Assessment & Plan Chart Review: Max fever 101.1 but consistent WBC normal 7.5 Hgb 10 CMP normal except for albumin 2.[address] Remy Review: Dr. Remy suggests CT jaw to look for abscesses. Patient Interview: Pt was seen while ambulating in the halls. Physical exam stable. Max temp 101, pleasant, chronically ill, slow to respond but that is chronic in nature from head injury Regular rate and rhythm, diminished breath sounds in the bases and poor excursion No edema Laboratory Tests 11/01/16 04:23 Assessment: Right lower lobe pneumonia now with recurrent fever after several days of IV antibiotic of Rocephin and Zithromax changing to Zosyn monitoring closely w/ repeat CXR still w/infiltrate and obtain CT mandible for tooth abscess evaluation Head injury with slow response chronically Overall debility and poor prognosis considering poor excursion on pulmonary exam and lack of ability to recover completely Plan: CXR noted CT with contrast neck with jaws Maintain antibiotics Poor prognosis Scribed by Dov Lara under the direct supervision of Dr. Wall. LIDIA WALL DO Nov 01, 2016 10:27
--- NOTE | 2016-11-01 10:48 | Diagnostic Imaging Report ---
INDICATION: Fever and dyspnea PA and lateral views of the chest are obtained with comparison made to study of 10/28/2016. There's been development of increased airspace disease in the parahilar regions, greater on the left. No pneumothorax is identified. There is no evidence of significant pleural fluid. IMPRESSION: Increased perihilar density, greater on the left which may be due to developing edema or pneumonitis. This could be the result of atypical pneumonia and clinical correlation is recommended. Dictated by: Dictated on workstation # [id number]
--- NOTE | 2016-11-01 11:43 | ST Dysphagia Evaluation ---
Speech Evaluation-General Medical Diagnosis Right Lower Lobe Pneumonia Onset Date: Oct 26, 2016 Therapy Diagnosis Therapy Diagnosis: Moderate Oropharyngeal Dysphagia Precautions Precautions: Aspiration Precautions/Isolations: Seizure, Fall Prevention, Standard Precautions Referral Referring Physician: Dr. Kim Wall Reason for Referral: Evaluation/Treatment Clinical Bedside Swallowing Evaluation Medical History Pertinent Medical History: GERD Closed Head Injury Reviewed History: Yes Social History Current Living Status: Alone Speech PLF/Current-Dysphagia Prior Level of Function The patient was unable to provide the clinician with prior level of function information. Following a chart review, it appears the patient was receiving a pureed diet prior to admission due to the "poor condition" of his teeth. At this time, the patient is receiving a pureed diet with thin liquids. Subjective The patient was recently admitted to [facility] with a diagnosis of right lower lobe pneumonia. The patient greeted the clinician appropriately and was agreeable to participate in the dysphagia evaluation on this date. To note, the patient demonstrated a productive (however, weak) cough at baseline. The patient's neck was positioned in a posterior position with chin pointed towards ceiling. A pillow was placed behind the patient's head to return chin and gaze to neutral, a safer position for swallowing. Cognitive Status Patient Orientation: Person, Place Oral Motor Skills Dentition: Natural (Missing, Poor Condition) Current Food Consistancy: Pureed, Thin Liquids Ability to Follow Directions: Fair Oral Expression Ability: Moderate Impairment Voice Voice Phonatory-Based Quality: Glottal Ervin Voice Pitch: Normal Voice Loudness: Normal Face Facial Symmetry: Asymmetrical (Left Facial Droop) Oral-Facial Assessment Oral-Facial Dentition: Normal Labial Seal Description: Droops Left Smile: Droops Left Puff Cheeks: Reduced Strength (Left) Lingual Protrusion: Normal Lingual ROM: Normal Lingual Strength: Normal Pharynx Velopharyngeal Move.: Normal Volitional Dry Swallow: Yes Voluntary Cough: Yes Dysphagia Evaluation Consistencies Presented: Thin Liquid, [place] Thick Liquid, Honey Thick Liquid, Pureed Oral Phase: Anterior Spillage, Oral Residue - Mild anterior oral spillage was noted with thin liquids via teaspoon, as well as, mild lingual surface residue with puree consistencies. The patient was able to clear the puree residual material with a subsequent, spontaneous dry swallow. Pharyngeal Phase: Multiple Swallow Attempts, Reduced Laryngeal Elevation - Reduced laryngeal elevation was noted with all consistencies tested. Additionally, the patient demonstrate two to three swallows per bolus. Funct. Velo/Pharyngeal Symptom: Cough After Swallow, Wet Voice - Thin Liquid (via teaspoon): The patient demonstrated an immediate cough and wet vocal quality following two of two teaspoon trials of thin liquid. - [place]-Thick Liquid (via teaspoon): The patient demonstrated an immediate cough and wet vocal quality following two of two teaspoon trials of nectar- thick liquid. - Honey Thick Liquid (via teaspoon, cup sip, straw sip): No signs/symptoms of aspiration were demonstrated with multiple boluses of honey-thick liquid via teaspoon or cup sip. The patient demonstrated a slightly "wet" vocal quality with the introduction of the straw. - Puree: No signs/symptoms of aspiration were demonstrated with multiple boluses of puree consistency. To note: The patient continued to move neck in posterior position, with chin pointing towards ceiling. Wet vocal quality increased during bolus trials with head in described position. Once the head was re-positioned to a neutral state with pillows, the patient's vocal quality and swallow function improved. Please ensure patient is upright and alert for all PO intake. Dietary Recommendations: Pureed Liquid Recommendations: Honey Consistancy Swallowing Precautions: No Straw, Oral Supervision Staff, Oral Supervision Caregiver, Small Bites and Sips, Sitting 90 Degrees 30 Post Intake 1. Crush medication and place in puree for administration. Dysphagia Evaluation Summary Moderate oropharyngeal dysphagia characterized by reduced labial strength and decreased laryngeal elevation. Aspiration is suspected of thin liquid and nectar -thick liquid consistencies. Barriers to Learning Cognition Speech Short Term Goals Short Term Goals Short Term Goals 1. The patient will demonstrate swallowing strategies with 80% accuracy and mild clinician verbal cueing. Time Frame-STG: One Week Speech Alf Goals Alf Goals 1. The patient will tolerate the least restrictive diet without signs/symptoms of aspiration or laryngeal penetration. Time Frame: Three Weeks Speech-Plan Treatment Plan Speech Therapy Treatment Plan: Continue Plan of Care Continue skilled speech therapy to target dysphagia strategies and safe PO intake. Treatment Duration: Nov 22, 2016 # of days/week One to Three Visits Per Week: One to Three Minutes/Day (M-F): 20 Rehab Potential: Guarded Safety Risks/Education Teaching Recipient: Patient Teaching Methods: Demonstration, Discussion Response to Teaching: Verbalize Understanding, Return Demonstration, Reinforcement Needed Education Topics Provided: Results, Recommendations, Signs/Symptoms of Aspiration Time Speech Therapy Time In: 10:30 Speech Therapy Time Out: 10:50 Total Billed Time: 20 Billed Treatment Time 1, CLARITA GOMEZ Nov 01, 2016 11:43
[2016-11-01] MEDS: NYSTATIN ORAL SUSP 5 ML UDC PO SCH ×3 (12:13→23:08)
--- NOTE | 2016-11-01 12:40 | Diagnostic Imaging Report ---
CLINICAL INDICATION: Concern for a small right-sided abscess behind bottom of ear lobe. EXAM: Axial CT scan of the neck performed with 75 cc of Omnipaque 350 IV contrast. Coronal reformatted images are created. COMPARISON: CT scan of the cervical spine without IV contrast dated 06/24/2008. FINDINGS: There is no evidence of significant fluid collection or abscess seen in the region of the right ear lobe. The soft tissue adjacent to the right earlobe is similar to the left ear lobe. There is no significant fat stranding or fluid collection seen in the neck. There is no lymphadenopathy. There is lobulated exophytic thickening involving the posterior hypopharyngeal wall (left side more than the right). The area on the left side measures 14 mm in width. This may represent secretions or mucosal thickening. Otherwise, the nasopharynx, oropharynx, hypopharynx, and laryngeal structures show no significant abnormality. Thyroid gland is unremarkable. There is fatty replacement of the bilateral parotid glands with no other significant abnormality. Bilateral submandibular glands are unremarkable. The neck arteriovascular structures and venous structures show no significant abnormality, as visualized. Visualized intracranial structures and orbits are unremarkable. There is consolidation involving the right middle ear and mastoid region with the appearance of adjacent bony scalloping. The inner ear ossicles are not visualized. This may be related to neoplasm or cholesteatoma. Clinical correlation would better evaluate. There is consolidation of the left middle ear region. There is hypoaeration of both mastoid air cell regions. The cervical spine shows no significant abnormality. There are centrilobular groundglass nodules and patchy nodular areas involving the visualized left upper lobe concerning for infectious or inflammatory process. IMPRESSION: 1: There is no evidence of abscess adjacent to the right earlobe. 2: There is complete consolidation of the right mastoid air cells and right middle ear with the appearance of adjacent bony erosive changes. The right middle ear ossicles are not seen and may be surgically resected or eroded. This finding may be related to neoplasm or cholesteatoma. Clinical correlation would better evaluate. 3: There is consolidation of the left middle ear region. 4: Suspected infectious or inflammatory process of the visualized left upper lobe. Dictated by: Dictated on workstation # [id number]
--- NOTE | 2016-11-01 14:13 | Occupational Ther Daily Note ---
OT Current Status-Daily Note Subjective Pt seen in room, up in recliner, agreeable to OT. No pain mentioned Appearance Awake, cooperative, thinks he is at [facility] Mental Status/Objective Functional [place] Measure 0=Not Assessed/NA 4=Minimal Assistance 1=Total Assistance 5=Supervision or Setup 2=Maximal Assistance 6=Modified [place] 3=Moderate Assistance 7=Complete [place] ADL-Treatment Eating (FIM): 5 (Pt was able to get a drink of Ensure out of a bottle (no straw ) but needed help to open it and initiation cues to drink) Toileting (FIM): 1 (Pt required two people to stand to change briefs and mod assist x 2 to maintain forward flexed posture for standing, FWW. Dependant for hygiene - he was incontinent of urine in brief. Pt unable to help with management of brief) Transfers (B, C, W/C) (FIM): 1 (2 person assist to stand and to maintain standing, FWW for toileting) Other Treatment Pt did 10 repetitions bilat UE AROM to help strengthen arms to help with transfers and ADLs. Pt needed skilled physical cues and assistance to do some of the exercises correctly but he was able to track reps fairly accurately. Pt left up in recliner, call light present, all needs met. Education OT Patient Education: Purpose of tx/functional activities, Safety issues Teaching Recipient: Patient Response to Teaching: Reinforcement Needed OT Short Term Goals Short Term Goals 1=Demonstrate adherence to instructed precautions during ADL tasks. 2=Patient will verbalize/demonstrate understanding of assistive devices/ modifications for ADL. 3=Patient will improve strength/tolerance for activity to enable patient to perform ADL's. OT Wiping Rag Washer Goals Shelter Goals Time Frame: Nov 09, 2016 Eating (FIM): 4 Grooming(FIM): 4 Upper Body Dressing(FIM): 4 Lower Body Dressing(FIM): 4 Toileting(FIM): 4 Toilet/Commode Transfer(FIM): 4 Additional Goals: 2-Verbalize Understanding, 3-ImproveStrength/Connie 1=Demonstrate adherence to instructed precautions during ADL tasks. 2=Patient will verbalize/demonstrate understanding of assistive devices/ modifications for ADL. 3=Patient will improve strength/tolerance for activity to enable patient to perform ADL's. OT Education/Plan Discharge Recommendations Plan/Recommendations: Continue POC Treatment Plan/Plan of Care Patient would benefit from OT for education, treatment and training to promote independence in ADL's, mobility, safety and/or upper extremity function for ADL' s. Plan of Care: ADL Retraining, Functional Mobility, UE Funct Exercise/Act Treatment Duration: Nov 09, 2016 Visits Per Week: 5 Agreement: Yes Rehab Potential: Guarded Time/GCodes Start Time: 13:40 Stop Time: 14:00 Total Time Billed (hr/min): 20 Billed Treatment Time visit, 15 minutes exercise, 5 minutes ADL DAKOTA CLARK OT Nov 01, 2016 14:13
[2016-11-01] MEDS: ENOXAPARIN 40 MG/0.4 ML (LOVENOX) SYR SC SCH (17:20)
[2016-11-01 18:00] VITALS: BP 130/87
[2016-11-01] MEDS: risperiDONE 1 MG (RisperDAL) TAB PO SCH (20:48)
[2016-11-01] MEDS: MIRTAZAPINE 15 MG (REMERON) TAB PO SCH (20:48)
[2016-11-02] MEDS: PIPERACILLIN SODIUM/TAZOBACTAM 4.5 GM in NS (IVPB) 100 ML IV SCH ×3 (02:25→18:07)
[2016-11-02] MEDS: NYSTATIN ORAL SUSP 5 ML UDC PO SCH ×3 (05:35→18:07)
[2016-11-02 06:00] VITALS: BP 131/87
[2016-11-02] MEDS: ARFORMOTEROL 15 MCG/2 ML (BROVANA) INH SOLUTIION IH SCH ×2 (07:52→20:35)
[2016-11-02] MEDS: LORATADINE (CLARITIN) 10 MG TAB PO SCH (08:23)
[2016-11-02] MEDS: MONTELUKAST 10 MG (SINGULAIR) TAB PO SCH (08:24)
[2016-11-02] MEDS: VENlafaxine XR 75 MG (EFFEXOR XR) CAP PO SCH (08:24)
[2016-11-02] MEDS: MEMANTINE 10 MG (NAMENDA) TABLET PO SCH ×2 (08:24→20:14)
[2016-11-02] MEDS: risperiDONE 0.25 MG (RisperDAL) TAB PO SCH (08:24)
--- NOTE | 2016-11-02 10:16 | Progress Note-Hospitalist ---
Progress Note Progress Notes/Assess & Plan Date Seen 11/02/16 Diagonsis/Assessment & Plan Chart Review: Max fever 99.6 since initiated Zosyn CXR yesterday showed continued pneumonia Neck CT scan to show any dental abscesses: no evidence Patient Interview: Pt states that he is doing well. Pt states that his breathing is improved and his BMs are regular. Physical exam stable. Dr. Wall discusses possible consultation with Dr. Mora due to sinus congestion. Max temp 99.6, pleasant, chronically ill, slow to respond but that is chronic in nature from head injury Regular rate and rhythm, diminished breath sounds in the bases and poor excursion No edema Assessment: Right lower lobe pneumonia with recurrent fever after several days of IV antibiotic of Rocephin and Zithromax changed to Zosyn and fever has resolved but repeat CXR still w/infiltrate and CT mandible revealed sinus disease that may need intervention so consulting ENT Head injury with slow response chronically Overall debility and poor prognosis considering poor excursion on pulmonary exam and lack of ability to recover completely Plan: Consult Dr. Mora CXR noted Maintain antibiotics Poor prognosis long-term PT/OT DC early next week Scribed by Dov Lara under the direct supervision of Dr. Wall. LIDIA WALL DO Nov 02, 2016 10:16
--- NOTE | 2016-11-02 10:56 | Speech Therapy Daily Note ---
Speech Daily Progress Note Subjective The patient was seated upright in chair upon entrance. Pillows and blankets were placed behind the patient's posterior neck which allowed his head to remain in a neutral position for swallowing safely. The patient greeted the clinician appropriately and was agreeable to a re-assessment of his diet consistency recommendation. To note: The patient continues to demonstrate a weak, productive cough at baseline and is receiving 4L supplemental oxygen via nasal cannula. Objective Diet Tolerance: The patient's swallowing function was reassessed with honey- thick liquids and puree consistencies. Additionally solid consistencies will not be evaluated due to the patient's poor dentition. The patient was provided four ounces of applesauce and four ounces of honey-thick liquid (via teaspoon and cup sip). No signs/symptoms of aspiration were demonstrated with the multiple bolus consistencies provided. The patient denied odynophagia upon swallowing. - Sign posted in room with recommendations and strategies. Assessment Assessment Current Status: Fair Progress Treatment Plan Continue Plan of Care Speech Short Term Goals Short Term Goals Short Term Goals 1. The patient will demonstrate swallowing strategies with 80% accuracy and mild clinician verbal cueing. Time Frame-STG: One Week Speech Moto Mix Operator Goals Moto Mix Operator Goals 1. The patient will tolerate the least restrictive diet without signs/symptoms of aspiration or laryngeal penetration. Time Frame: Three Weeks Speech-Plan Treatment Plan Speech Therapy Treatment Plan: Continue Plan of Care Continue skilled speech therapy to target tolerance of least restrictive diet without signs/symptoms of aspiration or laryngeal penetration. Treatment Duration: Nov 22, 2016 # of days/week One to Three Visits Per Week: One to Three Minutes/Day (M-F): 20 Rehab Potential: Guarded Safety Risks/Education Teaching Recipient: Patient Teaching Methods: Handout, Discussion Response to Teaching: Return Demonstration, Reinforcement Needed Education Topics Provided: Swallowing Strategies, Signs/Symptoms of Aspiration Time Speech Therapy Time In: 10:30 Speech Therapy Time Out: 10:45 Total Billed Time: 15 Billed Treatment Time 1, CLARITA ELLISON Nov 02, 2016 10:56
--- NOTE | 2016-11-02 11:53 | Occupational Ther Daily Note ---
OT Current Status-Daily Note Subjective Pt alert, finishing up with PT. Pt agreed to therapy. No c/o pain. Mental Status/Objective Patient Orientation: Person, Unable to Assess Functional [place] Measure 0=Not Assessed/NA 4=Minimal Assistance 1=Total Assistance 5=Supervision or Setup 2=Maximal Assistance 6=Modified [place] 3=Moderate Assistance 7=Complete [place] Attachments: IV, Oxygen ADL-Treatment Functional [place] Measure 0=Not Assessed/NA 4=Minimal Assistance 1=Total Assistance 5=Supervision or Setup 2=Maximal Assistance 6=Modified [place] 3=Moderate Assistance 7=Complete IndependenceIRFPAI Quality Coding Scale 6 Independent with activity with or without an assistive device 5 Patient requires set up or clean up by helper. Patient completes activity by themselves 4 Supervision or touching assist (CGA). [place] provide cues , steadying assist 3 The helper provides less than half the effort to complete the activity 2 The helper provides more than half the effort to complete the activity 1 Dependent. The helper does all the effort to complete an activity 7 Patient refused to complete or attempt activity 9 The patient did not perform the activity before the current illness or injury 88 Not attempted due to Medical conditions or safety concerns Other Treatment Pt has difficulty following verbal commands and when physical cues given decrease movement demonstrated. HAMMOND asked pt to lift LE's over tray table foot did not follow command, max A to lift legs. Pt able to manipulate utensils to feed self though inefficiently. Pt requires set up to open containers/packages and direct to where food is. After therapy, pt continues to eat lunch, reported to nrsg pt was in chair and eating lunch. Pt reeducated on nrsg call light and placed within reach. All needs met in room. OT Short Term Goals Short Term Goals 1=Demonstrate adherence to instructed precautions during ADL tasks. 2=Patient will verbalize/demonstrate understanding of assistive devices/ modifications for ADL. 3=Patient will improve strength/tolerance for activity to enable patient to perform ADL's. OT Usp Goals Casting Inspector Goals Time Frame: Nov 09, 2016 Eating (FIM): 4 Eating (QC): 4 Groomin Oral Hygiene (QC): 4 Upper Body Dressing(FIM): 4 Lower Body Dressing(FIM): 4 Toileting(FIM): 4 Toileting Hygiene (QC): 4 Toilet/Commode Transfer(FIM): 4 Toilet/Commode Transfer (QC): 4 Additional Goals: 2-Verbalize Understanding, 3-ImproveStrength/Connie 1=Demonstrate adherence to instructed precautions during ADL tasks. 2=Patient will verbalize/demonstrate understanding of assistive devices/ modifications for ADL. 3=Patient will improve strength/tolerance for activity to enable patient to perform ADL's. OT Education/Plan Discharge Recommendations Plan/Recommendations: Continue POC Treatment Plan/Plan of Care Patient would benefit from OT for education, treatment and training to promote independence in ADL's, mobility, safety and/or upper extremity function for ADL' s. Plan of Care: ADL Retraining, Functional Mobility, UE Funct Exercise/Act Treatment Duration: Nov 09, 2016 Visits Per Week: 5 Agreement: Yes Rehab Potential: Guarded Time/GCodes Start Time: 11:30 Stop Time: 11:45 Total Time Billed (hr/min): 15 Billed Treatment Time 1 visit-FA 1 (15 min) BETTIE STERN Nov 02, 2016 11:53
--- NOTE | 2016-11-02 12:21 | CONSULTATION REPORT ---
DATE OF CONSULTATION: REFERRING PHYSICIAN: Dr. Wall. REASON FOR CONSULTATION: Possible sinus problems/sinus congestion. HISTORY OF PRESENT ILLNESS: The patient is a 52-year-old developmentally challenged individual whose currently admitted to the hospital because of a closed head injury. He has been running low-grade fevers the source of which it is questionable. He has had his CT of the neck, which did not show any evidence of dental abscess. His teeth are in poor condition. In addition, his neck CT showed opacification of mastoid cells. He has a history of chronic right ear disease. He has had no recent surgery. On the left side he had fluid in the ear by CT. He has no complaints of ear pain. There has been no swelling of the mastoid region. He does have a history of recent nasal congestion, but he has been since he has been on the oxygen. A recent chest x-ray did show a pneumonia. PHYSICAL EXAM: On physical exam today: EARS AND MOUTH: Are normal. The drums were retracted. He has chronic changes of the drums. There is no acute infection seen on the CT. NOSE: Nasal mucosa was dry secondary to the oxygen. There was no mucopus seen in the nose itself. Nasopharynx was clear. ORAL CAVITY: Oral cavity showed the teeth to be in very poor condition. There is no obvious abscess present. The pharynx showed posterior nasal drainage. NECK: Negative to palpation. IMPRESSION: 1. Fever of unknown origin. 2. Rule out chronic sinusitis. 3. Ongoing pneumonia. RECOMMENDATIONS: Findings were discussed with the patient and his nurse. We will go ahead and obtain a CT of the sinuses to rule out ongoing acute or chronic sinus problems. I will follow-up with the patient once the CT has been obtained. He does have chronic changes in the ears, but those are not the cause of his fever. There is no evidence of acute infection seen. Job ID: [id number] Dictated Date: 11/02/2016 11:25:57 Senior Qa Analyst Date: 11/02/2016 12:11:38/ana GAVIN
--- NOTE | 2016-11-02 14:38 | Physical Therapy Daily Note ---
PT Daily Note-Current Subjective Pt agreeable to work with therapy. Mental Status Patient Orientation: Confused, Mumbles Attachments: Oxygen Transfers Functional [place] Measure 0=Not Assessed/NA 4=Minimal Assistance 1=Total Assistance 5=Supervision or Setup 2=Maximal Assistance 6=Modified [place] 3=Moderate Assistance 7=Complete IndependenceIRFPAI Quality Coding Scale 6 Independent with activity with or without an assistive device 5 Patient requires set up or clean up by helper. Patient completes activity by themselves 4 Supervision or touching assist (CGA). Max provide cues , steadying assist 3 The helper provides less than half the effort to complete the activity 2 The helper provides more than half the effort to complete the activity 1 Dependent. The helper does all the effort to complete an activity 7 Patient refused to complete or attempt activity 9 The patient did not perform the activity before the current illness or injury 88 Not attempted due to Medical conditions or safety concerns Transfers (B, C, W/C) (FIM): 3 Supine to/from Sit: 4 Sit to/from Stand: 3 Bed to/from Chair: 3 Pt has ability to perform tasks but cannot motor plan. During transfers patient forgot multiple times what he was doing and needed physical assist to safely complete the task. Gait Training Does the Patient Walk?: Yes Gait (FIM): 4 Distance (FIM): 3=568-45 ft Distance: 50 Walk 50 ft with 2 Turns(QC): 2 Walk 150 ft (QC): 1 Gait Level of Assist: 4 Gait Persons Needed: 1 Gait Assistive Device: FWW Pt forward flexed at the waist. Needs constant cuing to stay on task and how to use the walker. On 2 occasions a chair was needed as patient could not figure out how to turn around or how to keep walking. Assessment Patient has sufficient strength for transfers and short distance ambulation but he is limited by inability to process commands. He is at risk for falls and further medical decline due to immobility and will benefit from continued therapy services. PT Bike Assembler Goals Chcf Goals PT Bike Assembler Goals Time Frame: Nov 09, 2016 Transfers (B,C,W/C) (FIM): 5 Sit to Lying (QC): 4 Lying-Sitting on Side/Bed(QC): 4 Sit to Stand (QC): 4 Rollin Chair/[id number] Xfer(QC): 4 Does the Patient Walk: Yes Gait (FIM): 4 Gait distance (FIM): 3=150 ft Distance: 150 Walk 50ft with 2 Turns (QC): 4 Walk 150 ft (QC): 4 Gait Level of Assist: 4 Gait Assistive Device: FWW PT Plan Problem List Problem List: Gait, Transfer Treatment/Plan Treatment Plan: Continue Plan of Care Treatment Plan: Bed Mobility, Functional Activity Connie, Functional Strength, Gait Visits Per Week: 11 Minutes/Day (M-F): 20-30 Minutes/Day (Sat/Mccormick): 15 Time/GCodes Time In: 1100 Time Out: 1130 Total Billed Treatment Time: 30 Total Billed Treatment visit, gait 15min, FA 15 min G Codes Necessary: No IRMA BURNS PT Nov 02, 2016 14:38
--- NOTE | 2016-11-02 14:45 | Diagnostic Imaging Report ---
PROCEDURE: CT sinuses without contrast TECHNIQUE: Multiple contiguous axial images were obtained through the sinuses without the use of intravenous contrast. Coronal and sagittal reformations were then performed. INDICATION: Chronic sinus infection with fever. FINDINGS: Noncontrasted images show the paranasal sinuses to be well aerated. No air-fluid levels are present. There is no mucosal thickening. The ostiomeatal complexes appear normal bilaterally. There is minimal deviation of the nasal septum to the right. Nasal turbinates appear normal. No destructive bony lesions. IMPRESSION: 1. No evidence of inflammatory sinus disease. 2. Mild deviation of the nasal septum to the right. Dictated by: Dictated on workstation # [id number]
[2016-11-02] MEDS: ENOXAPARIN 40 MG/0.4 ML (LOVENOX) SYR SC SCH (16:02)
[2016-11-02 18:00] VITALS: BP 126/75
[2016-11-02] MEDS: risperiDONE 1 MG (RisperDAL) TAB PO SCH (20:14)
[2016-11-02] MEDS: MIRTAZAPINE 15 MG (REMERON) TAB PO SCH (20:14)
[2016-11-03] MEDS: NYSTATIN ORAL SUSP 5 ML UDC PO SCH ×4 (00:10→17:32)
[2016-11-03] MEDS: PIPERACILLIN SODIUM/TAZOBACTAM 4.5 GM in NS (IVPB) 100 ML IV SCH ×3 (03:26→18:07)
[2016-11-03 05:20] VITALS: BP 135/87
[2016-11-03] MEDS: ARFORMOTEROL 15 MCG/2 ML (BROVANA) INH SOLUTIION IH SCH ×2 (07:45→19:40)
[2016-11-03] MEDS: VENlafaxine XR 75 MG (EFFEXOR XR) CAP PO SCH (07:57)
[2016-11-03] MEDS: MEMANTINE 10 MG (NAMENDA) TABLET PO SCH ×2 (08:00→21:04)
[2016-11-03] MEDS: MONTELUKAST 10 MG (SINGULAIR) TAB PO SCH (08:00)
[2016-11-03] MEDS: risperiDONE 0.25 MG (RisperDAL) TAB PO SCH (08:00)
[2016-11-03] MEDS: LORATADINE (CLARITIN) 10 MG TAB PO SCH (08:00)
--- NOTE | 2016-11-03 09:10 | Physical Therapy Daily Note ---
PT Daily Note-Current Subjective Patient in bed pre tx, agrees to PT, patient pleasant and cooperative. Patient states he has 2/10 pain in general just from the way he was laying down. Appearance Patient in bed post tx with nurse call, phone, tray, bed alarm on. Mental Status Patient Orientation: Confused Attachments: Oxygen Transfers Functional [place] Measure 0=Not Assessed/NA 4=Minimal Assistance 1=Total Assistance 5=Supervision or Setup 2=Maximal Assistance 6=Modified [place] 3=Moderate Assistance 7=Complete IndependenceIRFPAI Quality Coding Scale 6 Independent with activity with or without an assistive device 5 Patient requires set up or clean up by helper. Patient completes activity by themselves 4 Supervision or touching assist (CGA). [place] provide cues , steadying assist 3 The helper provides less than half the effort to complete the activity 2 The helper provides more than half the effort to complete the activity 1 Dependent. The helper does all the effort to complete an activity 7 Patient refused to complete or attempt activity 9 The patient did not perform the activity before the current illness or injury 88 Not attempted due to Medical conditions or safety concerns Transfers (B, C, W/C) (FIM): 2 Scootin Supine to/from Sit: 2 Sit to/from Stand: 2 Patient required max assist for supine to sit, very retropulsive, when trying to stand patient resisted a lot was retropulsive. Standing up this time was unsafe due to patient resistance and likeliness to slide out of bed so he was layed back down and attempted bilateral lower extremity exercises. Exercises Supine Ex: Ankle pumps, Short Arc Quads Supine Reps: 20 manual stretching of left ankle into dorsiflexion Assessment Current Status: Poor Progress Patient very confused, resistant to treatment. PT Group Home Goals Group Home Goals PT Social Services Coordinator Goals Time Frame: Nov 09, 2016 Transfers (B,C,W/C) (FIM): 5 Sit to Lying (QC): 4 Lying-Sitting on Side/Bed(QC): 4 Sit to Stand (QC): 4 Rollin Chair/Wtd-fv-Vgcvh Xfer(QC): 4 Does the Patient Walk: Yes Gait (FIM): 4 Gait distance (FIM): 3=150 ft Distance: 150 Walk 50ft with 2 Turns (QC): 4 Walk 150 ft (QC): 4 Gait Level of Assist: 4 Gait Assistive Device: FWW PT Plan Problem List Problem List: Activity Tolerance, Functional Strength, Safety, Balance, Gait, Transfer, Bed Mobility, ROM Treatment/Plan Treatment Plan: Continue Plan of Care Treatment Plan: Bed Mobility, Functional Activity Connie, Functional Strength, Gait Visits Per Week: 11 Minutes/Day (M-F): 20-30 Minutes/Day (Sat/Mccormick): 15 Safety Risks/Education Patient Education: Transfer Techniques, Correct Positioning, Safety Issues Teaching Recipient: Patient Teaching Methods: Demonstration, Discussion Response to Teaching: Reinforcement Needed Time/GCodes Time In: 840 Time Out: 858 Total Billed Treatment Time: 18 Total Billed Treatment 1 visit FA 18 min TAISHA ANTHONY PT Nov 03, 2016 09:09
[2016-11-03] MEDS: ENOXAPARIN 40 MG/0.4 ML (LOVENOX) SYR SC SCH (16:29)
[2016-11-03 18:00] VITALS: BP 110/69
[2016-11-03] MEDS: MIRTAZAPINE 15 MG (REMERON) TAB PO SCH (21:04)
[2016-11-03] MEDS: risperiDONE 1 MG (RisperDAL) TAB PO SCH (21:04)
[2016-11-04] MEDS: NYSTATIN ORAL SUSP 5 ML UDC PO SCH ×5 (00:43→23:01)
[2016-11-04] MEDS: PIPERACILLIN SODIUM/TAZOBACTAM 4.5 GM in NS (IVPB) 100 ML IV SCH ×3 (03:03→18:59)
[2016-11-04 06:16] VITALS: BP 110/77
--- NOTE | 2016-11-04 06:50 | Progress Note-Standard ---
Standard Progress Note Progress Notes/Assess & Plan Progress/Assessment & Plan ENT-[facility] Sinus CT normal -no evidence of acute or chronic sinus disease seen Fever-not coming form the sinuses will write for ocean nasal spray to be at bedside to keep nose moist Please call if we need to see the patient again while hospitalized will arrange for follow up of his ears as an outpt BARB SILVA MD Nov 04, 2016 6:50 am
[2016-11-04] MEDS: ARFORMOTEROL 15 MCG/2 ML (BROVANA) INH SOLUTIION IH SCH ×2 (07:23→19:18)
[2016-11-04] MEDS ORDERED: SALINE NASAL SPRAY (OCEAN) 45 ML BTL PRN (08:00)
[2016-11-04] MEDS: LORATADINE (CLARITIN) 10 MG TAB PO SCH (09:17)
[2016-11-04] MEDS: VENlafaxine XR 75 MG (EFFEXOR XR) CAP PO SCH (09:17)
[2016-11-04] MEDS: MONTELUKAST 10 MG (SINGULAIR) TAB PO SCH (09:18)
[2016-11-04] MEDS: MEMANTINE 10 MG (NAMENDA) TABLET PO SCH ×2 (09:18→20:12)
[2016-11-04] MEDS: risperiDONE 0.25 MG (RisperDAL) TAB PO SCH (09:19)
[2016-11-04] MEDS: ENOXAPARIN 40 MG/0.4 ML (LOVENOX) SYR SC SCH (17:27)
[2016-11-04 18:00] VITALS: BP 120/78
[2016-11-04] MEDS: MIRTAZAPINE 15 MG (REMERON) TAB PO SCH (20:12)
[2016-11-04] MEDS: risperiDONE 1 MG (RisperDAL) TAB PO SCH (20:12)
[2016-11-04 20:13] VITALS: BP 120/78
[2016-11-05] MEDS: PIPERACILLIN SODIUM/TAZOBACTAM 4.5 GM in NS (IVPB) 100 ML IV SCH ×2 (02:02→11:25)
[2016-11-05 05:51] VITALS: BP 122/74
[2016-11-05] MEDS: NYSTATIN ORAL SUSP 5 ML UDC PO SCH ×3 (05:53→17:06)
[2016-11-05] MEDS: ARFORMOTEROL 15 MCG/2 ML (BROVANA) INH SOLUTIION IH SCH ×2 (08:34→19:02)
[2016-11-05] MEDS: VENlafaxine XR 75 MG (EFFEXOR XR) CAP PO SCH (08:47)
[2016-11-05] MEDS: MONTELUKAST 10 MG (SINGULAIR) TAB PO SCH (08:47)
[2016-11-05] MEDS: LORATADINE (CLARITIN) 10 MG TAB PO SCH (08:47)
[2016-11-05] MEDS: MEMANTINE 10 MG (NAMENDA) TABLET PO SCH ×2 (08:48→21:00)
[2016-11-05] MEDS: risperiDONE 0.25 MG (RisperDAL) TAB PO SCH (08:48)
--- NOTE | 2016-11-05 11:46 | Speech Therapy Daily Note ---
Speech Daily Progress Note Subjective The patient was seated upright upon entrance into his room. The patient greeted the clinician appropriately and agreed to participate in the dysphagia therapy session on this date. Objective Diet Tolerance/Analysis: - Thin Liquid/[place]-Thick Liquid (via teaspoon and cup sip): The patient demonstrated a delayed throat clear with thin liquid and nectar-thick liquid cup sips. - Honey-Thick Liquid (via cup sip): No signs/symptoms of aspiration were demonstrated with cup sips of honey-thick liquid. - Puree: No signs/symptoms of aspiration were demonstrated with four ounces of pudding. To note: The patient had a large glass of thin liquid at bedside. The cup was removed following re-evaluation of the patient's swallowing function. Recommendations: The patient should continue to receive a pureed diet with honey -thick liquids (no straws). The recommendations were reviewed with the RN following the session. Assessment Assessment Current Status: Fair Progress Treatment Plan Continue Plan of Care Speech Short Term Goals Short Term Goals Short Term Goals 1. The patient will demonstrate swallowing strategies with 80% accuracy and mild clinician verbal cueing. Time Frame-STG: One Week Speech Half-Way Goals Concrete Saw Operator Goals 1. The patient will tolerate the least restrictive diet without signs/symptoms of aspiration or laryngeal penetration. Time Frame: Three Weeks Speech-Plan Treatment Plan Speech Therapy Treatment Plan: Continue Plan of Care Continue skilled speech therapy to target improved swallowing safety. Treatment Duration: Nov 22, 2016 # of days/week One to Three Visits Per Week: One to Three Minutes/Day (M-F): 20 Rehab Potential: Guarded Safety Risks/Education Teaching Recipient: Patient Teaching Methods: Discussion Response to Teaching: Return Demonstration, Reinforcement Needed Education Topics Provided: Recommendations, Swallowing Strategies Time Speech Therapy Time In: 11:15 Speech Therapy Time Out: 11:30 Total Billed Time: 15 Billed Treatment Time 1, SABA ELLISONBETH Nov 05, 2016 11:46
--- NOTE | 2016-11-05 12:40 | Progress Note-Hospitalist ---
Standard Progress Note Progress Notes/Assess & Plan Date Seen 11/05/16 Assess & Plan/Chief Complaint The patient has not really had a fever in a week. He is sitting in the chair today and is alert and more talkative than I have seen him before. He reports that he has 2 cats and a gives descriptions of them. He is completing his intended course of Zosyn. He has no other complaints. Physical exam: Lungs show somewhat shallow respirations but are clear. CV is regular. There is no pedal edema. Dentition is noted to be particularly poor. This represents primarily his incisors. Comment: Addition to improved alertness, his white count also remains well within the normal range. Impression: Febrile illness, not well defined. Explore discharge the options MIKAYLA FRANCIS MD Nov 05, 2016 12:40
--- NOTE | 2016-11-05 14:16 | Physical Therapy Daily Note ---
PT Daily Note-Current Subjective Pt sitting in recliner upon arrival. Pt agrees to walk with PT for tx. Mental Status Patient Orientation: Person Attachments: Oxygen (4L), IV Transfers Functional [place] Measure 0=Not Assessed/NA 4=Minimal Assistance 1=Total Assistance 5=Supervision or Setup 2=Maximal Assistance 6=Modified [place] 3=Moderate Assistance 7=Complete IndependenceIRFPAI Quality Coding Scale 6 Independent with activity with or without an assistive device 5 Patient requires set up or clean up by helper. Patient completes activity by themselves 4 Supervision or touching assist (CGA). [place] provide cues , steadying assist 3 The helper provides less than half the effort to complete the activity 2 The helper provides more than half the effort to complete the activity 1 Dependent. The helper does all the effort to complete an activity 7 Patient refused to complete or attempt activity 9 The patient did not perform the activity before the current illness or injury 88 Not attempted due to Medical conditions or safety concerns Transfers (B, C, W/C) (FIM): 3 Scootin Sit to/from Stand: 3 Sit to Stand (QC): 3 Chair/Iwk-zd-Flabh Xfer(QC): 3 Bed to/from Chair: 3 Weight Bearing Weight Bearing Restriction: Full Weight Bearing Location Restriction: LE Bilateral Gait Training Does the Patient Walk?: Yes Gait (FIM): 3 Distance (FIM): 1=up to 49 ft Distance: 12' Gait Level of Assist: 3 Gait Persons Needed: 2 Gait Assistive Device: FWW Pt needs max VC for sequencing and foot placement during gait. Pt's new is very slow. Treatments Pt transferred from recliner using FWW at Mod A X 2 for safety/balance. Pt ambulated in room using FWW at Mod A X2 for VC as well as hand & foot placement during ambulation. Pt returned to recliner at end of tx with all needs met. Assessment Current Status: Good Progress Pt continues to be confused and needs repeated VC to complete tasks. Pt was able to stand and walk today with staff which pt is not always safe to attempt. PT Ampoule Washing Machine Operator Goals Ampoule Washing Machine Operator Goals PT Half-Way Goals Time Frame: Nov 09, 2016 Transfers (B,C,W/C) (FIM): 5 Sit to Lying (QC): 4 Lying-Sitting on Side/Bed(QC): 4 Sit to Stand (QC): 4 Rollin Chair/Jjq-nb-Nqvyp Xfer(QC): 4 Does the Patient Walk: Yes Gait (FIM): 4 Gait distance (FIM): 3=150 ft Distance: 150 Walk 50ft with 2 Turns (QC): 4 Walk 150 ft (QC): 4 Gait Level of Assist: 4 Gait Assistive Device: FWW PT Plan Problem List Problem List: Activity Tolerance, Functional Strength, Safety, Balance, Gait, Transfer, Bed Mobility Treatment/Plan Treatment Plan: Continue Plan of Care Treatment Plan: Bed Mobility, Functional Activity Connie, Functional Strength, Gait Visits Per Week: 11 Minutes/Day (M-F): 20-30 Minutes/Day (Sat/Mccormick): 15 Safety Risks/Education Patient Education: Gait Training, Transfer Techniques, Correct Positioning, Safety Issues Teaching Recipient: Patient Teaching Methods: Discussion Response to Teaching: Reinforcement Needed Time/GCodes Time In: 1335 Time Out: 1400 Total Billed Treatment Time: 25 Total Billed Treatment visit, FA X2 (25m) ADELIA NAVA PTA Nov 05, 2016 14:16
--- NOTE | 2016-11-05 14:22 | Occupational Ther Daily Note ---
OT Current Status-Daily Note Subjective Pt alert, lying in bed watching tv. Pt agreed to therapy. No c/o pain. Mental Status/Objective Patient Orientation: Person, Time Functional [place] Measure 0=Not Assessed/NA 4=Minimal Assistance 1=Total Assistance 5=Supervision or Setup 2=Maximal Assistance 6=Modified [place] 3=Moderate Assistance 7=Complete [place] Attachments: IV, Oxygen ADL-Treatment Pt asked throughout therapy what do I do next then how do I do it? Pt was able to wash face when handed cloth and told what to wash. Then pt directed to bathe upper body and legs. Step by step verbal and physical cues to go from supine to sitting. Pt had been incontinent of bowel in bed, nrsg was asked for assistance. Pt required multiple verbal and physical cues to stand beside bed to be cleaned up by nrsg. Max A x2 to go from sit to stand, mod A x2 to stand pivot transfer to chair. After therapy, nrsg in room with pt, call light/phone in reach. All needs met in room. Functional [place] Measure 0=Not Assessed/NA 4=Minimal Assistance 1=Total Assistance 5=Supervision or Setup 2=Maximal Assistance 6=Modified [place] 3=Moderate Assistance 7=Complete IndependenceIRFPAI Quality Coding Scale 6 Independent with activity with or without an assistive device 5 Patient requires set up or clean up by helper. Patient completes activity by themselves 4 Supervision or touching assist (CGA). [place] provide cues , steadying assist 3 The helper provides less than half the effort to complete the activity 2 The helper provides more than half the effort to complete the activity 1 Dependent. The helper does all the effort to complete an activity 7 Patient refused to complete or attempt activity 9 The patient did not perform the activity before the current illness or injury 88 Not attempted due to Medical conditions or safety concerns Bathing (FIM): 2 OT Short Term Goals Short Term Goals 1=Demonstrate adherence to instructed precautions during ADL tasks. 2=Patient will verbalize/demonstrate understanding of assistive devices/ modifications for ADL. 3=Patient will improve strength/tolerance for activity to enable patient to perform ADL's. OT Yard Switcher Goals [facility] Goals Time Frame: Nov 09, 2016 Eating (FIM): 4 Eating (QC): 4 Groomin Oral Hygiene (QC): 4 Upper Body Dressing(FIM): 4 Lower Body Dressing(FIM): 4 Toileting(FIM): 4 Toileting Hygiene (QC): 4 Toilet/Commode Transfer(FIM): 4 Toilet/Commode Transfer (QC): 4 Additional Goals: 2-Verbalize Understanding, 3-ImproveStrength/Connie 1=Demonstrate adherence to instructed precautions during ADL tasks. 2=Patient will verbalize/demonstrate understanding of assistive devices/ modifications for ADL. 3=Patient will improve strength/tolerance for activity to enable patient to perform ADL's. OT Education/Plan Discharge Recommendations Plan/Recommendations: Continue POC Treatment Plan/Plan of Care Patient would benefit from OT for education, treatment and training to promote independence in ADL's, mobility, safety and/or upper extremity function for ADL' s. Plan of Care: ADL Retraining, Functional Mobility, UE Funct Exercise/Act Treatment Duration: Nov 09, 2016 Visits Per Week: 5 Agreement: Yes Rehab Potential: Guarded Time/GCodes Start Time: 09:55 Stop Time: 10:20 Total Time Billed (hr/min): 25 Billed Treatment Time 1 visit-FA 2 (25 min) BETTIE STERN Nov 05, 2016 14:22
[2016-11-05] MEDS: ENOXAPARIN 40 MG/0.4 ML (LOVENOX) SYR SC SCH (17:06)
[2016-11-05 18:32] VITALS: BP 122/74
[2016-11-05] MEDS: MIRTAZAPINE 15 MG (REMERON) TAB PO SCH (21:00)
[2016-11-05] MEDS: risperiDONE 1 MG (RisperDAL) TAB PO SCH (21:00)
[2016-11-06] MEDS: NYSTATIN ORAL SUSP 5 ML UDC PO SCH ×3 (00:57→13:34)
[2016-11-06 06:01] VITALS: BP 122/74
[2016-11-06] MEDS: ARFORMOTEROL 15 MCG/2 ML (BROVANA) INH SOLUTIION IH SCH (06:33)
--- NOTE | 2016-11-06 09:21 | Occupational Ther Daily Note ---
OT Current Status-Daily Note Subjective Pt alert, lying in bed. Pt agreed to therapy. No c/o pain. Mental Status/Objective Patient Orientation: Person Functional [place] Measure 0=Not Assessed/NA 4=Minimal Assistance 1=Total Assistance 5=Supervision or Setup 2=Maximal Assistance 6=Modified [place] 3=Moderate Assistance 7=Complete [place] ADL-Treatment Pt required step by step cues (verbal, physical, visual) to go from supine to sitting EOB, mod A. Pt then requested to don shoes prior to moving from bed to recliner. Pt donned shoes, but continuously asked if it was okay. Mod A with stand pivot transfer from bed to recliner. Pt washed face with cues. With verbal directions and encouragement pt stood so HAMMOND could cleanse buttocks then at to so pt could cleanse loly area. After set up, pt was able to don/ doff shoes and socks by self. Pt required multiple cues and time to process request to complete movements and tasks. After therapy, pt sitting in recliner with safety measures in place. Call light/phone within reach, all needs met in room. Functional [place] Measure 0=Not Assessed/NA 4=Minimal Assistance 1=Total Assistance 5=Supervision or Setup 2=Maximal Assistance 6=Modified [place] 3=Moderate Assistance 7=Complete IndependenceIRFPAI Quality Coding Scale 6 Independent with activity with or without an assistive device 5 Patient requires set up or clean up by helper. Patient completes activity by themselves 4 Supervision or touching assist (CGA). [place] provide cues , steadying assist 3 The helper provides less than half the effort to complete the activity 2 The helper provides more than half the effort to complete the activity 1 Dependent. The helper does all the effort to complete an activity 7 Patient refused to complete or attempt activity 9 The patient did not perform the activity before the current illness or injury 88 Not attempted due to Medical conditions or safety concerns OT Short Term Goals Short Term Goals 1=Demonstrate adherence to instructed precautions during ADL tasks. 2=Patient will verbalize/demonstrate understanding of assistive devices/ modifications for ADL. 3=Patient will improve strength/tolerance for activity to enable patient to perform ADL's. OT Pneumatic System Conveyor Operator Goals Shelter Goals Time Frame: Nov 09, 2016 Eating (FIM): 4 Eating (QC): 4 Groomin Oral Hygiene (QC): 4 Upper Body Dressing(FIM): 4 Lower Body Dressing(FIM): 4 Toileting(FIM): 4 Toileting Hygiene (QC): 4 Toilet/Commode Transfer(FIM): 4 Toilet/Commode Transfer (QC): 4 Additional Goals: 2-Verbalize Understanding, 3-ImproveStrength/Connie 1=Demonstrate adherence to instructed precautions during ADL tasks. 2=Patient will verbalize/demonstrate understanding of assistive devices/ modifications for ADL. 3=Patient will improve strength/tolerance for activity to enable patient to perform ADL's. OT Education/Plan Discharge Recommendations Plan/Recommendations: Continue POC Treatment Plan/Plan of Care Patient would benefit from OT for education, treatment and training to promote independence in ADL's, mobility, safety and/or upper extremity function for ADL' s. Plan of Care: ADL Retraining, Functional Mobility, UE Funct Exercise/Act Treatment Duration: Nov 09, 2016 Visits Per Week: 5 Agreement: Yes Rehab Potential: Guarded Time/GCodes Start Time: 08:40 Stop Time: 09:13 Total Time Billed (hr/min): 33 Billed Treatment Time 1 visit-FA 2 (33 min) BETTIE STERN Nov 06, 2016 09:21
[2016-11-06] MEDS: MEMANTINE 10 MG (NAMENDA) TABLET PO SCH (10:05)
[2016-11-06] MEDS: LORATADINE (CLARITIN) 10 MG TAB PO SCH (10:05)
[2016-11-06] MEDS: VENlafaxine XR 75 MG (EFFEXOR XR) CAP PO SCH (10:05)
[2016-11-06] MEDS: MONTELUKAST 10 MG (SINGULAIR) TAB PO SCH (10:06)
[2016-11-06] MEDS: risperiDONE 0.25 MG (RisperDAL) TAB PO SCH (10:10)
--- NOTE | 2016-11-06 11:52 | Discharge Inst-Home Health ---
Discharge Inst-to Home Health Patient Instructions Patient Instructions/FollowUp: See your provider in 7-10 days. O2 by nasal cannula at 4 L/m Patient Problems: COPD with hypoxia Febrile illness etiology unclear Goal: Restored to previous functional capacity [place] DISCHARGE ORDERS Allergies: Coded Allergies: No Known Drug Allergies (Unverified , 04/01/09) Height (Feet): 6 Height (Inches): 0 Weight (Pounds): 195 Weight (Ounces): 0.0 Home Health Need/Face to Face Diagnosis/Conditions HH Order: Traumatic brain syndrome COPD with hypoxia Febrile illness Severe deconditioning y Consult/Follow Up/New Order *I certify that based on my findings, the following services are medically necessary Home Health Services: y Services: Plant Hr Manager-Evaluate & Treat, Physical Therapy-Evaluate & Treat My clinical findings support the need for the above services; see Diagnosis. y Home O2 Qualification: y Home O2 Length of Need: 90d Dicharge Diet: other diet (pured with honey thickened liquids) Daily Activity as Tolerated: Yes I certify that this patient is under my care and that I, a nurse practitioner or a physician; a automobile mechanic assistant working with me, had a face to face encounter that - meets the physician face to face encounter requirements with this patient as dated. y I believe that you have to MIKAYLA FRANCIS MD Nov 06, 2016 11:52
--- NOTE | 2016-11-06 12:18 | Physical Therapy Daily Note ---
PT Daily Note-Current Subjective Pt sitting in recliner upon arrival. Pt agrees to PT and states is going back to [facility] today although PT couldn't confirm with nursing. Pain Location: No Pain Reported Mental Status Patient Orientation: Person Attachments: Oxygen Transfers Functional [place] Measure 0=Not Assessed/NA 4=Minimal Assistance 1=Total Assistance 5=Supervision or Setup 2=Maximal Assistance 6=Modified [place] 3=Moderate Assistance 7=Complete IndependenceIRFPAI Quality Coding Scale 6 Independent with activity with or without an assistive device 5 Patient requires set up or clean up by helper. Patient completes activity by themselves 4 Supervision or touching assist (CGA). [place] provide cues , steadying assist 3 The helper provides less than half the effort to complete the activity 2 The helper provides more than half the effort to complete the activity 1 Dependent. The helper does all the effort to complete an activity 7 Patient refused to complete or attempt activity 9 The patient did not perform the activity before the current illness or injury 88 Not attempted due to Medical conditions or safety concerns Transfers (B, C, W/C) (FIM): 5 Scootin Sit to/from Stand: 5 Sit to Stand (QC): 5 Weight Bearing Weight Bearing Restriction: Full Weight Bearing Location Restriction: LE Bilateral Gait Training Does the Patient Walk?: Yes Gait (FIM): 2 Distance (FIM): 1=up to 49 ft Distance: 15' Gait Level of Assist: 4 Gait Persons Needed: 1 Gait Assistive Device: FWW Pt shuffles as he walks but is able to ambulate with less VC than yesterday. Treatments Pt transfers from recliner using FWW at [facility] with few VC for sequencing and hand/ foot placement. Assessment Current Status: Good Progress Pt able to follow VC better today as well as more Independent with transfers and ambulation. PT Track Laborer Goals Track Laborer Goals PT Longterm Goals Time Frame: Nov 09, 2016 Transfers (B,C,W/C) (FIM): 5 Sit to Lying (QC): 4 Lying-Sitting on Side/Bed(QC): 4 Sit to Stand (QC): 4 Rollin Chair/Vom-je-Ictus Xfer(QC): 4 Does the Patient Walk: Yes Gait (FIM): 4 Gait distance (FIM): 3=150 ft Distance: 150 Walk 50ft with 2 Turns (QC): 4 Walk 150 ft (QC): 4 Gait Level of Assist: 4 Gait Assistive Device: FWW PT Plan Problem List Problem List: Activity Tolerance, Safety, Balance, Gait Treatment/Plan Treatment Plan: Continue Plan of Care Treatment Plan: Bed Mobility, Functional Activity Connie, Functional Strength, Gait Visits Per Week: 11 Minutes/Day (M-F): 20-30 Minutes/Day (Sat/Mccormick): 15 Safety Risks/Education Patient Education: Gait Training, Transfer Techniques, Correct Positioning, Safety Issues Teaching Recipient: Patient Teaching Methods: Discussion Response to Teaching: Verbalize Understanding Time/GCodes Time In: 1125 Time Out: 1140 Total Billed Treatment Time: 15 Total Billed Treatment visit, FA (15m) ADELIA NAVA PTA Nov 06, 2016 12:18
--- NOTE | 2016-11-08 12:07 | Therapy Team Discharge Summary ---
Therapy Discharge Summary Discharge Recommendations Date of Discharge Nov 06, 2016 at 14:32 Therapy D/C Recommendations: Assisted Living ([facility]), Occupational Therapy Home Care Occupational Therapy Pt was seen for skilled OT to increase his independence in basic self care to allow him to return home safely to assisted living. On admission he needed max assistance with eating, grooming and toileting. By discharge he had progressed to supervision to min assist with eating and grooming. He assisted with toileting but still did less than 50% of activity. He was able to return to [facility] and would benefit from home health OT. See tx plan for goals met PT Mcc Goals Mcc Goals PT Mcc Goals Time Frame: Nov 09, 2016 Transfers (B,C,W/C) (FIM): 5 Sit to Lying (QC): 4 Lying-Sitting on Side/Bed(QC): 4 Sit to Stand (QC): 4 Rollin Chair/Mmx-su-Wrmgh Xfer(QC): 4 Does the Patient Walk: Yes Gait (FIM): 4 Gait distance (FIM): 3=150 ft Distance: 150 Walk 50ft with 2 Turns (QC): 4 Walk 150 ft (QC): 4 Gait Level of Assist: 4 Gait Assistive Device: FWW OT Garment Sewer Hand Goals Garment Sewer Hand Goals Time Frame: Nov 09, 2016 Eating (FIM): 4 (met) Eating (QC): 4 (met) Groomin (met) Oral Hygiene (QC): 4 Upper Body Dressing(FIM): 4 (not met) Lower Body Dressing(FIM): 4 (not met) Toileting(FIM): 4 (not met) Toileting Hygiene (QC): 4 (not met) Toilet/Commode Transfer(FIM): 4 (not met) Toilet/Commode Transfer (QC): 4 (not met) Additional Goals: 2-Verbalize Understanding, 3-ImproveStrength/Connie 1=Demonstrate adherence to instructed precautions during ADL tasks. 2=Patient will verbalize/demonstrate understanding of assistive devices/ modifications for ADL. 3=Patient will improve strength/tolerance for activity to enable patient to perform ADL's. Speech Garment Sewer Hand Goals Garment Sewer Hand Goals 1. The patient will tolerate the least restrictive diet without signs/symptoms of aspiration or laryngeal penetration. Time Frame: Three Weeks DAKOTA CLARK OT Nov 08, 2016 12:07
--- NOTE | 2016-11-28 13:42 | Discharge Summary-Hospitalist ---
Diagnosis/Chief Complaint Date of Admission Oct 29, 2016 at 11:25 Date of Discharge Nov 06, 2016 at 14:32 Discharge Date: Nov 06, 2016 Admission Diagnosis Right lower lobe pneumonia. 2.chronic hyper natremia.. 3.history of closed head injury with mental impairment Discharge Diagnosis Right lower lobe pneumonia with failed outpatient treatment Reason Hospital Visit/Course The patient is a resident of [facility]. He was admitted inpatient on 10/26 and transferred to swing bed status on 10/29 in order to complete his IV antibiotics. This was accomplished at the date of discharge he was returned to [facility]. At the time of discharge he was clearly improved and more alert and interactive then he had been at any time during the hospital course. Medications and activities are as detailed on the discharge sequence. Discharge Summary Discharge Physical Examination Allergies: Coded Allergies: No Known Drug Allergies (Unverified , 04/01/09) Discharge Home Medications: Active Scripts Active Reported Debrox (Carbamide Peroxide) 15 Ml Drops 5 Drops EACH EAR BID PRN 10 Days Guaifenesin 100 Mg/5 Ml Liquid 5-10 Ml PO EVERY 4-6 HOURS PRN Iprat-Albut 0.5-3(2.5) mg/3 ml (Ipratropium/Albuterol Sulfate) 3 Ml Ampul.neb 3 Ml NEB EVERY 4-6 HOURS PRN Ibuprofen 600 Mg Tablet 600 Mg PO TID PRN Atorvastatin Calcium 20 Mg Tablet 20 Mg PO HS Mirtazapine 15 Mg Tablet 15 Mg PO HS Lorazepam 0.5 Mg Tablet 0.5 Mg PO HS Trazodone HCl 50 Mg Tablet 50 Mg PO HS Tamsulosin HCl 0.4 Mg Cap.er.24h 0.4 Mg PO 1700 Cyanocobalamin Injection (Cyanocobalamin) 1,000 Mcg/Ml Inj 1,000 Mcg IJ MONTHLY ON THE Exelon (Rivastigmine) 9.5 Mg Patch 9.5 Mg TD DAILY Folic Acid 1 Mg Tablet 1 Mg PO DAILY Vitamin D3 (Cholecalciferol (Vitamin D3)) 1,000 Unit Tablet 2,000 Unit PO DAILY TAKES 2 (1000 UNIT) TABLETS Metformin HCl 500 Mg Tablet 500 Mg PO BID Colace (Docusate Sodium) 100 Mg Capsule 100 Mg PO BID Venlafaxine HCl ER (Venlafaxine HCl) 150 Mg Cap.er.24h 150 Mg PO DAILY Brovana (Arformoterol Tartrate) 15 Mcg/2 Ml Vial.neb 2 Ml NEB Q12H PRN Singulair (Montelukast Sodium) 10 Mg Tablet 10 Mg PO DAILY Loratadine 10 Mg Tablet 10 Mg PO DAILY Namenda (Memantine) 10 Mg Tablet 10 Mg PO BID Instructions to patient/family Please see electonic discharge instructions given to patient. MIKAYLA FRANCIS MD Nov 28, 2016 13:42
== END 2016-11-06 14:32 | DRG 195 ==
LOC: DELPENDDIS → 4TH 11:25
PROVIDERS: ADMIT Internal Medicine; ATTEND Internal Medicine
DX: J18.9 Pneumonia, unspecified organism (principal); R53.1 Weakness; F32.9 Major depressive disorder, single episode, unspecified; K21.9 Gastro-esophageal reflux disease without esophagitis; R29.6 Repeated falls; F79 Unspecified intellectual disabilities; Z87.820 Personal history of traumatic brain injury
CPT/HCPCS: 36415; 70486; 70491; 71020; 80053; 85025; 94640; 94664; 94760

== ENCOUNTER → 2017-06-25 | Outpatient (CLI) | payer MEDICARE, MEDICAID ==
[~2017-06-25] MED LIST changes: +ATOR20TA66 PO; +CARB15DR87 EACH EAR; +CHOL10003 PO; +CNC1KV IJ; +DOCU-143 PO; +FOLI1TAB24 PO; +GADOBUTROL 7.5 MMOL/7.5 ML (GADAVIST) VIAL IV ONE; -GENT3.5O18 OP; +GENT3.5O6 OP; +GUAI100L13 PO; +IBUP-1773 PO; +IPRA3AMP NEB; +LORA0.5T PO; +METF500T4 PO; +MIRT15TA6 PO; +NEOM7.5D8 OS; +RIVA1PAT3 TD; +TAMS0.4C2 PO; +TRAZ-28 PO; +VENL150C98 PO
--- NOTE | 2017-06-25 19:19 | Diagnostic Imaging Report ---
PROCEDURE: MR imaging of the brain with and without contrast. TECHNIQUE: Multiplanar, multisequence MR imaging of the brain was performed with and without contrast. INDICATION: Dementia. Mental status change. 7 mL of Gadovist is administered intravenously. FINDINGS: There is no diffusion restriction to suggest an acute infarct or other diffusion abnormality. There are periventricular and deep white matter T2 hyperintense signal abnormalities without associated mass effect. Similar findings are seen in white matter tracts and fletcher. These are likely secondary to chronic microvascular ischemic changes. No enhancing mass is identified. There is mild to moderate brain atrophy seen more than expected for the patient's age. There is prominence of the CSF spaces with no hydrocephalus. No extra-axial fluid collection is seen. The central vascular flow voids appear grossly unremarkable. The internal auditory canals and inner ear structures appear symmetric. There is fluid and mucosal thickening obliterating the middle ear cavity and adjacent mastoid air cells suggested bilaterally. IMPRESSION: 1. White matter findings are likely related to chronic microvascular ischemic changes. No enhancing mass. 2. Abnormal obliteration of the middle ear cavity and adjacent mastoid air cells mostly on the right side. Correlation with dedicated IAC CT scan is suggested. This could relate to cholesteatoma versus otitis media with mastoiditis. Dictated by: Dictated on workstation # [id number]
== END ==
LOC: RAD 13:30
DX: H74.91 Unspecified disorder of right middle ear and mastoid (principal); F02.80 Dementia in other diseases classified elsewhere, unspecified severity, without behavioral disturbance, psychotic disturbance, mood disturbance, and anxiety
CPT/HCPCS: 70553

== ENCOUNTER → 2017-07-01 | Outpatient (CLI) | payer MEDICARE, MEDICAID ==
[~2017-07-01] MED LIST changes: -GADOBUTROL 7.5 MMOL/7.5 ML (GADAVIST) VIAL IV ONE
--- NOTE | 2017-07-01 10:12 | Diagnostic Imaging Report ---
PROCEDURE: CT head without contrast. TECHNIQUE: Multiple contiguous axial images were obtained through the brain without the use of intravenous contrast. INDICATION: Mastoiditis. Mastoid lesion seen on MRI of 06/25/2017. FINDINGS: There is a soft tissue mass seen in the right mastoid air cells, middle ear cavity and inner aspect of the external auditory canal on the right side with associated bone erosions. There is absence of the ossicles identified. There are findings of opacification of the middle ear cavity and attic with mild partial opacification of the mastoid air cells on the left side as well. When compared to CT scan from 11/01/2016, similar findings are suggested indicating a chronic process. Consider cholesteatoma or less likely a low-grade neoplasm. ENT evaluation is recommended. The brain demonstrate no intracranial hemorrhage, edema or mass effect. There is no hydrocephalus. No extra-axial fluid collection seen. The calvarium and orbits appear unremarkable. IMPRESSION: Soft tissue lesion with bone and ossicles erosions involving the middle ear cavity, the inner aspect of the external auditory canal and the mastoid air cells on the right side with mild involvement of the right middle ear cavity and mastoid air cells on the left side are favored to be related to cholesteatoma, and less likely infection or neoplasm related. ENT evaluation is recommended. Dictated by: Dictated on workstation # [id number]
== END ==
LOC: RAD 07:36
DX: H74.8X1 Other specified disorders of right middle ear and mastoid (principal)
CPT/HCPCS: 70450

== ENCOUNTER → 2017-07-23 | Outpatient (CLI) | payer MEDICARE, MEDICAID ==
[~2017-07-23] MED LIST changes: +IOHEXOL 350 MG/ML 100 ML (OMNIPAQUE 350) VIAL IV ONE; +NS 100 ML (IVPB) BAG IV ONE
[2017-07-23 09:05] LABS: BLOOD UREA NITROGEN 14 MG/DL (7-18); BUN/CREATININE RATIO 17; CREATININE SERUM 0.82 MG/DL (0.60-1.30); GFR ESTIMATED > 60
--- NOTE | 2017-07-23 10:43 | Diagnostic Imaging Report ---
PROCEDURE: CT abdomen and pelvis with contrast. TECHNIQUE: Multiple contiguous axial images were obtained through the abdomen and pelvis after administration of intravenous contrast. INDICATION: Abdominal pain, suspicion for hernia. COMPARISON: No prior examinations are available for comparison. FINDINGS: There is a moderate to large retrocardiac gastric hernia. The visualized lung bases are otherwise normal. There are multiple fat-containing stones in the gallbladder lumen without bile duct dilatation. The liver appears normal. The spleen and adrenals are negative. The tiny low-density nodule may be cystic but too small to be characterized and measuring a diameter of 6 mm in the posterior aspect of the pancreatic body/tail junction. Consider a followup in 3-6 months to confirm expected stability of this very likely benign finding. The adrenals and kidneys are negative. There is no mesenteric or retroperitoneal lymphadenopathy. There is no bowel obstruction. There is some mild rectal constipation. The urinary bladder is unremarkable. The prostate and seminal vesicles are unremarkable. There is no appendicitis or diverticulitis. No pneumatosis or free air. No anterior abdominal wall defect. The inguinal canals are unremarkable. The osseous structures are nonacute. IMPRESSION: 1. Retrocardiac hiatal hernia. Intact anterior abdominal wall. Tiny subcentimeter low-density likely cystic structure in the pancreas; however, owing to its small size, a solid lesion could not be confidently excluded and followup is suggested. 2. Cholelithiasis without evidence of acute cholecystitis or biliary dilatation. 3. Mild rectal constipation without bowel obstruction. Dictated by: Dictated on workstation # [id number]
== END ==
LOC: RAD 08:31
PROVIDERS: ATTEND Surgery
DX: K44.9 Diaphragmatic hernia without obstruction or gangrene (principal); K80.20 Calculus of gallbladder without cholecystitis without obstruction; K59.09 Other constipation
CPT/HCPCS: 36415; 74177; 82565; 84520

== ENCOUNTER 2017-07-28 16:45 | Inpatient (IN) | payer MEDICARE, MEDICAID ==
[2017-07-28] VITALS (20 sets, daily range): BP systolic 88–127; BP diastolic 52–83
[~2017-07-28] VITALS: Ht 172.7 cm; Wt 67.4 kg
[~2017-07-28 16:45] MED LIST changes: -IOHEXOL 350 MG/ML 100 ML (OMNIPAQUE 350) VIAL IV ONE; -NS 100 ML (IVPB) BAG IV ONE
--- OUTSIDE RECORDS SUMMARY | 2017-07-28 16:50 | XMS REPORT | Clinical Summary ---
Author Author [facility] Organization [facility] Address Unknown Phone Unavailable Care Team Providers Care Wharfmaster Name Role Phone PCP Unavailable Source Comments Some departments are not documenting in the electronic medical record. If you do not see the information that you expected, contact Release of Information in the Health Information Management department at [phone] for further assistance in locating additional records.[facility] Allergies Not on File Current Medications Prescription Sig. [...] Active Problems Problem Noted Date Cholesteatoma 09/25/2013 Family History Medical History Relation Name Comments Heart Attack Father High Cholesterol Father Diabetes Mother Relation Name Status Comments Father Mother Social History Tobacco Use Types Packs/Day Years Used Date Never Smoker Smokeless Tobacco: Never Used Alcohol Use Drinks/Week oz/Week Comments No Sex Assigned at Date Recorded Not on file Last Filed Vital Signs Vital Sign Reading Time Taken Blood Pressure 125/84 11/26/2013 11:27 AM CDT Pulse 102 11/26/2013 11:27 AM CDT Temperature 37.5 C (99.5 F) 11/03/2013 2:57 PM CDT Respiratory Rate - - Oxygen Saturation 94% 11/03/2013 4:15 PM CDT Inhaled Oxygen - - Concentration Weight 89.3 kg (196 lb 12.8 oz) 11/26/2013 11:27 AM CDT Height 172.7 cm (5' 8") 11/26/2013 11:27 AM CDT Body Mass Index 29.92 11/26/2013 11:27 AM CDT Plan of Treatment Health Maintenance Due Date Last Done Comments HEPATITIS C SCREENING 1961 PHYSICAL (COMPREHENSIVE) 1968 EXAM PERTUSSIS VACCINE 1972 TETANUS VACCINE 1978 COLORECTAL CANCER 2011 SCREENING INFLUENZA VACCINE 03/12/2017 Results Not on filefrom Last 3 Months
--- OUTSIDE RECORDS SUMMARY | 2017-07-28 16:50 | XMS REPORT | Continuity of Care Document ---
Author Author [employer] Organization [facility] Address Unknown Phone Unavailable Care Team Providers Care Sign Designer Name Role Phone [employer] Unavailable Unavailable Problems Medications Allergies, Adverse Reactions, Alerts Immunizations Results Vital Signs Encounters Procedures Plan of Care Social History Assessment and Plan Family History Value Date Source Advance Directives Order Name Results Value Date Source
[2017-07-28] MEDS ORDERED: RT-ALBUTEROL SULF 2.5 MG/3 ML PRE-MIX VIAL INH ONE (16:51)
[2017-07-28] MEDS ORDERED: RT-ALBUTEROL/IPRATROPIUM 3 ML (DUONEB) VIAL ONE (16:51)
--- OUTSIDE RECORDS SUMMARY | 2017-07-28 16:51 | XMS REPORT | Continuity of Care Document ---
Author Author [facility] Address Unknown Phone Unavailable Allergies Active Description Code Type Severity Reaction Onset Reported/Identified Relationship to Patient Clinical Status Yes No Known Drug Allergies [id number] Drug Allergy Mild N/A 04/01/2009 Yes MRSA Miscellaneous Allergy N/ A N/A 11/23/2013 Medications There is no data. Problems Date Dx Coded Attending Type Code Diagnosis Diagnosed By 11/18/2013 MORELIA FERNANDO MD 297.1 DELUSIONAL DISORDER 11/18/2013 MORELIA FERNANDO MD 300.00 ANXIETY STATE NOS 11/18/2013 MORELIA FERNANDO MD 477.9 ALLERGIC RHINITIS NOS 11/18/2013 MORELIA FERNANDO MD 530.81 ESOPHAGEAL REFLUX 11/18/2013 MORELIA FERNANDO MD 794.8 ABN LIVER FUNCTION STUDY 11/18/2013 MORELIA FERNANDO MD V58.69 SNF MEDICATION USE 12/04/2013 JANNIE BENSON MD 294.9 PERSIST MENT DIS CCE NOS 12/04/2013 JANNIE BENSON MD 295.70 SCHIZOAFF DISORDER NOS 12/04/2013 JANNIE BENSON MD 296.80 BIPOLAR DISORDER NOS 12/04/2013 JANNIE BENSON MD 322.0 NONPYOGENIC MENINGITIS 12/04/2013 JANNIE BENSON MD 345.90 UNSPEC EPIL/NOT INTRCTBL 12/04/2013 JANNIE BENSON MD 477.9 ALLERGIC RHINITIS NOS 12/04/2013 JANNIE BENSON MD 530.81 ESOPHAGEAL REFLUX 03/08/2015 LYSSA MULLEN, FABIOLA Obando Ot 327.23 03/11/2016 MADI MACDONALD APRN Ot F79 UNSPECIFIED INTELLECTUAL DISABILITIES 03/11/2016 MADI MACDONALD APRN Ot H10.32 UNSPECIFIED ACUTE CONJUNCTIVITIS, LEFT E 03/11/2016 MADI MACDONALD APRN Ot H57.9 UNSPECIFIED DISORDER OF EYE AND ADNEXA 03/11/2016 MADI MACDONALD RN POST PARTUM Ot S05.02XA INJ CONJUNCTIVA AND CORNEAL ABRASION W/O 03/11/2016 MADI MACDONALD RN POST PARTUM Ot X58.XXXA EXPOSURE TO OTHER SPECIFIED FACTORS, INI 03/11/2016 MADI MACDONALD RN POST PARTUM Ot Y92.[address] IN UNSP NON-INSTITUT (PRIVATE 03/11/2016 MADI MACDONALD RN POST PARTUM Ot Y99.8 OTHER EXTERNAL CAUSE STATUS 10/19/2016 MADI MACDONALD RN POST PARTUM Ot F79 UNSPECIFIED INTELLECTUAL DISABILITIES 10/19/2016 MADI MACDONALD RN POST PARTUM Ot J18.9 PNEUMONIA, UNSPECIFIED ORGANISM 10/19/2016 MADI MACDONALD RN POST PARTUM Ot R06.02 SHORTNESS OF BREATH 10/21/2016 MADI MACDONALD RN POST PARTUM Ot F79 UNSPECIFIED INTELLECTUAL DISABILITIES 10/21/2016 MADI MACDONALD RN POST PARTUM Ot J18.9 PNEUMONIA, UNSPECIFIED ORGANISM 10/21/2016 MADI MACDONALD RN POST PARTUM Ot R06.02 SHORTNESS OF BREATH 10/21/2016 MADI MACDONALD RN POST PARTUM Ot F79 UNSPECIFIED INTELLECTUAL DISABILITIES 10/21/2016 MADI MACDONALD RN POST PARTUM Ot J18.9 PNEUMONIA, UNSPECIFIED ORGANISM 10/21/2016 MADI MACDONALD RN POST PARTUM Ot R06.02 SHORTNESS OF BREATH 10/29/2016 SALVATORE BALLESTEROS MD Ot E87.0 HYPEROSMOLALITY AND HYPERNATREMIA 10/29/2016 SALVATORE BALLESTEROS MD Ot F32.9 MAJOR DEPRESSIVE DISORDER, SINGLE EPISOD 10/29/2016 SALVATORE BALLESTEROS MD Ot F79 UNSPECIFIED INTELLECTUAL DISABILITIES 10/29/2016 SALVATROE BALLESTEROS MD Ot J18.9 PNEUMONIA, UNSPECIFIED ORGANISM 10/29/2016 SALVATORE BALLESTEROS MD Ot K21.9 GASTRO-ESOPHAGEAL REFLUX DISEASE WITHOUT 10/29/2016 SALVATORE BALLESTEROS MD Ot R00.0 TACHYCARDIA, UNSPECIFIED 10/29/2016 SALVATORE BALLESTEROS MD Ot R29.6 REPEATED FALLS 10/29/2016 SALVATORE BALLESTEROS MD Ot R53.1 WEAKNESS 10/29/2016 SALVATORE BALLESTEROS MD Ot Z87.820 PERSONAL HISTORY OF TRAUMATIC BRAIN INJU 11/02/2016 MIKAYLA FRANCIS MD Ot F32.9 MAJOR DEPRESSIVE DISORDER, SINGLE EPISOD 11/02/2016 MIKAYLA FRANCIS MD Ot F79 UNSPECIFIED INTELLECTUAL DISABILITIES 11/02/2016 MIKAYLA FRANCIS MD Ot J18.9 PNEUMONIA, UNSPECIFIED ORGANISM 11/02/2016 MIKAYLA FRANCIS MD Ot K21.9 GASTRO-ESOPHAGEAL REFLUX DISEASE WITHOUT 11/02/2016 MIKAYLA FRANCIS MD Ot R29.6 REPEATED FALLS 11/02/2016 MIKAYLA FRANCIS MD Ot R53.1 WEAKNESS 11/02/2016 MIKAYLA FRANCIS MD Ot Z87.820 PERSONAL HISTORY OF TRAUMATIC BRAIN INJU 11/06/2016 MIKAYLA FRANCIS MD Ot F32.9 MAJOR DEPRESSIVE DISORDER, SINGLE EPISOD 11/06/2016 MIKAYLA FRANCIS MD Ot F79 UNSPECIFIED INTELLECTUAL DISABILITIES 11/06/2016 MIKAYLA FRANCIS MD Ot J18.9 PNEUMONIA, UNSPECIFIED ORGANISM 11/06/2016 MIKAYLA FRANCIS MD Ot K21.9 GASTRO-ESOPHAGEAL REFLUX DISEASE WITHOUT 11/06/2016 MIKAYLA FRANCIS MD Ot R29.6 REPEATED FALLS 11/06/2016 MIKAYLA FRANCIS MD Ot R53.1 WEAKNESS 11/06/2016 MIKAYLA FRANCIS MD Ot Z87.820 PERSONAL HISTORY OF TRAUMATIC BRAIN INJU 07/16/2017 FABIOLA OMALLEY MD Ot 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 07/16/2017 FABIOLA OMALLEY MD Ot H74.91 UNSPECIFIED DISORDER OF RIGHT MIDDLE EAR 07/23/2017 FABIOLA OMALLEY MD Ot H74.8X1 OTHER SPECIFIED DISORDERS OF RIGHT MIDDL 07/25/2017 FABIOLA OMALLEY MD Ot F02.80 DEMENTIA IN OTH DISEASES CLASSD ELSR W 07/25/2017 FABIOLA OMALLEY MD Ot H74.91 UNSPECIFIED DISORDER OF RIGHT MIDDLE EAR Procedures Code [place] [address] ELECTROCARDIOGRAM REPORT MORELIA FERNANDO MD 11/18/2013 Results Test Result Range EKG - 11/18/13 19:41 EKG SMR COMPLETE BLOOD COUNT - 11/18/13 19:45 Platelet 254 10^3u 142-424 MPV 10.6 FL 9.4-12.4 [place] # 0.59 10^3u 0.0-1.0 RBC 4.01 10^6u 4.04-6.13 [place] % 6.9 % 0-12 RDW 13.2 % 11.6-14.8 Neut # 5.90 10^3u 2.0-6.9 Neut % 69.1 % 37-80 WBC 8.54 10^3u 4.60-10.20 MCV 95.5 FL 80.0-97.0 Baso # 0.04 10^3u 0.0-0.1 Baso % 0.5 % 0-2 Eos # 0.06 10^3u 0-0.7 Eos % 0.7 % 0-7 Lymph % 22.8 % 10-50 MCHC 33.9 G/DL 31.8-35.4 MCH 32.4 PG 27.0-31.2 Lymph # 1.95 10^3u 0.6-3.4 HGB 13.0 G/DL 12.2-18.1 HCT 38.3 % 37.7-53.7 CMP - 11/18/13 19:45 Osmo Calculated 274 MOSM 261-280 Sodium 141 MMOLL 137-145 T. Protein 6.4 G/DL 6.3-8.2 Potassium 4.4 MMOLL 3.6-5.0 T Bili 0.6 MG/DL 0.2-1.3 Calcium 9.5 MG/DL 8.4-10.2 BUN 14 MG/DL 7-21 Chloride 101 MMOLL 98-107 AST 62 U/L 15-46 ALT 72 U/L 7-56 Albumin 4.1 G/DL 3.5-5.0 A/G Ratio 1.7 RATIO 1.2-2.2 Bun/Creat 15.2 RATIO 7-25 Alk Phos 90 U/L 38-126 CO2 29 MMOLL 22-30 Glucose 114 MG/DL 65-110 Globulin 2.4 2.4-3.5 Creatinine 0.9 MG/DL 0.7-1.5 TSH - 11/18/13 19:45 TSH 0.95 UIUML 0.35-4.94 Free T4 - 11/18/13 19:45 Free T4 0.97 NG/DL 0.70-1.48 Urinalysis - 11/19/13 11:59 Glucose Negative Negative Leukocyte Negative Negative Nitrite Negative Negative pH 6.0 5.5-7.5 Urine Appearance Clear Clear Protein Negative Negative Ketones Negative Negative Urobilinogen 0.2 0.2-1.0 Urine RBC NONESEEN Specific [place] 1.020 1.010-1.020 Urine WBC NONESEEN Urine Bacteria NONESEEN Blood Negative Negative Color Yellow Yellow Bilirubin Negative Negative CMP - 12/03/13 05:30 Osmo Calculated 279 MOSM 261-280 Sodium 144 MMOLL 137-145 T. Protein 5.6 G/DL 6.3-8.2 Potassium 4.6 MMOLL 3.6-5.0 T Bili 0.4 MG/DL 0.2-1.3 Calcium 9.2 MG/DL 8.4-10.2 BUN 18 MG/DL 7-21 Chloride 103 MMOLL 98-107 AST 24 U/L 15-46 ALT 34 U/L 7-56 Albumin 3.4 G/DL 3.5-5.0 A/G Ratio 1.5 RATIO 1.2-2.2 Bun/Creat 18.2 RATIO 7-25 Alk Phos 66 U/L 38-126 CO2 28 MMOLL 22-30 Glucose 103 MG/DL 65-110 Globulin 2.2 2.4-3.5 Creatinine 1.0 MG/DL 0.7-1.5 Complete blood count (CBC) with automated white blood cell (WBC) differential - 10/19/16 14:50 Blood leukocytes automated count (number/volume) 10.3 10*3/uL 4.3-11.0 Blood erythrocytes automated count (number/volume) 4.23 10*6/uL 4.35-5.85 Venous blood hemoglobin measurement (mass/volume) 13.2 g/dL 13.3-17.7 Blood hematocrit (volume fraction) 40 % 40-54 Automated erythrocyte mean corpuscular volume 95 [foz_us] 80-99 Automated erythrocyte mean corpuscular hemoglobin (mass per erythrocyte) 31 pg 25-34 Automated erythrocyte mean corpuscular hemoglobin concentration measurement ( mass/volume) 33 g/dL 32-36 Automated erythrocyte distribution width ratio 13.6 % 10.0-14.5 Automated blood platelet count (count/volume) 310 10*3/uL 130-400 Automated blood platelet mean volume measurement 9.9 [foz_us] 7.4-10.4 Automated blood neutrophils/100 leukocytes 81 % 42-75 Automated blood lymphocytes/100 leukocytes 10 % 12-44 Blood monocytes/100 leukocytes 9 % 0-12 Automated blood eosinophils/100 leukocytes 1 % 0-10 Automated blood basophils/100 leukocytes 0 % 0-10 Blood neutrophils automated count (number/volume) 8.3 10*3 1.8-7.8 Blood lymphocytes automated count (number/volume) 1.0 10*3 1.0-4.0 Blood monocytes automated count (number/volume) 0.9 10*3 0.0-1.0 Automated eosinophil count 0.1 10*3/uL 0.0-0.3 Automated blood basophil count (count/volume) 0.0 10*3/uL 0.0-0.1 Comprehensive metabolic panel - 10/19/16 14:50 Serum or plasma sodium measurement (moles/volume) 153 mmol/L 135-145 Serum or plasma potassium measurement (moles/volume) 3.9 mmol/L 3.6-5.0 Serum or plasma chloride measurement (moles/volume) 116 mmol/L 98-107 Carbon dioxide 23 mmol/L 21-32 Serum or plasma anion gap determination (moles/volume) 14 mmol/L 5-14 Serum or plasma urea nitrogen measurement (mass/volume) 27 mg/dL 7-18 Serum or plasma creatinine measurement (mass/volume) 0.96 mg/dL 0.60-1.30 Serum or plasma urea nitrogen/creatinine mass ratio 28 NRG Serum or plasma creatinine measurement with calculation of estimated glomerular filtration rate > NRG Serum or plasma glucose measurement (mass/volume) 147 mg/dL 70-105 Serum or plasma calcium measurement (mass/volume) 10.2 mg/dL 8.5-10.1 Serum or plasma total bilirubin measurement (mass/volume) 0.3 mg/dL 0.1-1.0 Serum or plasma alkaline phosphatase measurement (enzymatic activity/volume) 122 U/L 40-136 Serum or plasma aspartate aminotransferase measurement (enzymatic activity/ volume) 77 U/L 5-34 Serum or plasma alanine aminotransferase measurement (enzymatic activity/volume ) 67 U/L 0-55 Serum or plasma protein measurement (mass/volume) 6.9 g/dL 6.4-8.2 Serum or plasma albumin measurement (mass/volume) 3.5 g/dL 3.2-4.5 Complete blood count (CBC) with automated white blood cell (WBC) differential - 10/26/16 13:32 Blood leukocytes automated count (number/volume) 15.8 10*3/uL 4.3-11.0 Blood erythrocytes automated count (number/volume) 4.51 10*6/uL 4.35-5.85 Venous blood hemoglobin measurement (mass/volume) 14.0 g/dL 13.3-17.7 Blood hematocrit (volume fraction) 44 % 40-54 Automated erythrocyte mean corpuscular volume 97 [foz_us] 80-99 Automated erythrocyte mean corpuscular hemoglobin (mass per erythrocyte) 31 pg 25-34 Automated erythrocyte mean corpuscular hemoglobin concentration measurement ( mass/volume) 32 g/dL 32-36 Automated erythrocyte distribution width ratio 13.7 % 10.0-14.5 Automated blood platelet count (count/volume) 371 10*3/uL 130-400 Automated blood platelet mean volume measurement 10.6 [foz_us] 7.4-10.4 Automated blood neutrophils/100 leukocytes 83 % 42-75 Automated blood lymphocytes/100 leukocytes 12 % 12-44 Blood monocytes/100 leukocytes 4 % 0-12 Automated blood eosinophils/100 leukocytes 1 % 0-10 Automated blood basophils/100 leukocytes 0 % 0-10 Blood neutrophils automated count (number/volume) 13.1 10*3 1.8-7.8 Blood lymphocytes automated count (number/volume) 2.0 10*3 1.0-4.0 Blood monocytes automated count (number/volume) 0.6 10*3 0.0-1.0 Automated eosinophil count 0.1 10*3/uL 0.0-0.3 Automated blood basophil count (count/volume) 0.0 10*3/uL 0.0-0.1 Blood manual differential performed detection - 10/26/16 13:32 Blood monocytes/100 leukocytes 3 % NRG Manual blood segmented neutrophils/100 leukocytes 84 % NRG Blood band neutrophils/100 leukocytes 2 % NRG Manual blood lymphocytes/100 leukocytes 11 % NRG Manual eosinophils/100 leukocytes in nose 0 % NRG Manual blood basophils/100 leukocytes 0 % NRG Blood erythrocyte morphology finding identification [facility] Comprehensive metabolic panel - 10/26/16 13:32 Serum or plasma sodium measurement (moles/volume) 153 mmol/L 135-145 Serum or plasma potassium measurement (moles/volume) 6.1 mmol/L 3.6-5.0 Serum or plasma chloride measurement (moles/volume) 120 mmol/L 98-107 Carbon dioxide 21 mmol/L 21-32 Serum or plasma anion gap determination (moles/volume) 12 mmol/L 5-14 Serum or plasma urea nitrogen measurement (mass/volume) 26 mg/dL 7-18 Serum or plasma creatinine measurement (mass/volume) 1.24 mg/dL 0.60-1.30 Serum or plasma urea nitrogen/creatinine mass ratio 21 NRG Serum or plasma creatinine measurement with calculation of estimated glomerular filtration rate > NRG Serum or plasma glucose measurement (mass/volume) 148 mg/dL 70-105 Serum or plasma calcium measurement (mass/volume) 9.1 mg/dL 8.5-10.1 Serum or plasma total bilirubin measurement (mass/volume) 0.3 mg/dL 0.1-1.0 Serum or plasma alkaline phosphatase measurement (enzymatic activity/volume) 103 U/L 40-136 Serum or plasma aspartate aminotransferase measurement (enzymatic activity/ volume) 36 U/L 5-34 Serum or plasma alanine aminotransferase measurement (enzymatic activity/volume ) 35 U/L 0-55 Serum or plasma protein measurement (mass/volume) 6.3 g/dL 6.4-8.2 Serum or plasma albumin measurement (mass/volume) 3.4 g/dL 3.2-4.5 Serum or plasma creatine kinase measurement (enzymatic activity/volume) - 10/26 13:32 Serum or plasma creatine kinase measurement (enzymatic activity/volume) 428 U/L 30-200 Bacterial blood culture - 10/26/16 14:14 Bacterial blood culture NG NR Blood lactic acid measurement (moles/volume) - 10/26/16 14:25 Blood lactic acid measurement (moles/volume) 2.35 mmol/L 0.50-2.00 Comprehensive metabolic panel - 10/26/16 14:25 Serum or plasma sodium measurement (moles/volume) 157 mmol/L 135-145 Serum or plasma potassium measurement (moles/volume) 3.8 mmol/L 3.6-5.0 Serum or plasma chloride measurement (moles/volume) 120 mmol/L 98-107 Carbon dioxide 26 mmol/L 21-32 Serum or plasma anion gap determination (moles/volume) 11 mmol/L 5-14 Serum or plasma urea nitrogen measurement (mass/volume) 27 mg/dL 7-18 Serum or plasma creatinine measurement (mass/volume) 1.16 mg/dL 0.60-1.30 Serum or plasma urea nitrogen/creatinine mass ratio 23 NRG Serum or plasma creatinine measurement with calculation of estimated glomerular filtration rate > NRG Serum or plasma glucose measurement (mass/volume) 98 mg/dL 70-105 Serum or plasma calcium measurement (mass/volume) 9.5 mg/dL 8.5-10.1 Serum or plasma total bilirubin measurement (mass/volume) 0.2 mg/dL 0.1-1.0 Serum or plasma alkaline phosphatase measurement (enzymatic activity/volume) 103 U/L 40-136 Serum or plasma aspartate aminotransferase measurement (enzymatic activity/ volume) 34 U/L 5-34 Serum or plasma alanine aminotransferase measurement (enzymatic activity/volume ) 34 U/L 0-55 Serum or plasma protein measurement (mass/volume) 6.1 g/dL 6.4-8.2 Serum or plasma albumin measurement (mass/volume) 3.6 g/dL 3.2-4.5 Serum or plasma creatine kinase measurement (enzymatic activity/volume) - 10/26 14:25 Serum or plasma creatine kinase measurement (enzymatic activity/volume) 764 U/L 30-200 Bacterial blood culture - 10/26/16 14:25 Bacterial blood culture NG NRG Serum or plasma lactate measurement (moles/volume) - 10/26/16 16:33 Serum or plasma lactate measurement (moles/volume) 0.99 mmol/L 0.50-2.00 Automated blood complete blood count (hemogram) panel - 10/27/16 04:10 Blood leukocytes automated count (number/volume) 7.2 10*3/uL 4.3-11.0 Blood erythrocytes automated count (number/volume) 3.90 10*6/uL 4.35-5.85 Venous blood hemoglobin measurement (mass/volume) 12.1 g/dL 13.3-17.7 Blood hematocrit (volume fraction) 38 % 40-54 Automated erythrocyte mean corpuscular volume 98 [foz_us] 80-99 Automated erythrocyte mean corpuscular hemoglobin (mass per erythrocyte) 31 pg 25-34 Automated erythrocyte mean corpuscular hemoglobin concentration measurement ( mass/volume) 32 g/dL 32-36 Automated erythrocyte distribution width ratio 13.7 % 10.0-14.5 Automated blood platelet count (count/volume) 259 10*3/uL 130-400 Automated blood platelet mean volume measurement 10.6 [foz_us] 7.4-10.4 Comprehensive metabolic panel - 10/27/16 04:10 Serum or plasma sodium measurement (moles/volume) 154 mmol/L 135-145 Serum or plasma potassium measurement (moles/volume) 3.5 mmol/L 3.6-5.0 Serum or plasma chloride measurement (moles/volume) 121 mmol/L 98-107 Carbon dioxide 26 mmol/L 21-32 Serum or plasma anion gap determination (moles/volume) 7 mmol/L 5-14 Serum or plasma urea nitrogen measurement (mass/volume) 18 mg/dL 7-18 Serum or plasma creatinine measurement (mass/volume) 0.89 mg/dL 0.60-1.30 Serum or plasma urea nitrogen/creatinine mass ratio 20 NRG Serum or plasma creatinine measurement with calculation of estimated glomerular filtration rate > NRG Serum or plasma glucose measurement (mass/volume) 117 mg/dL 70-105 Serum or plasma calcium measurement (mass/volume) 8.4 mg/dL 8.5-10.1 Serum or plasma total bilirubin measurement (mass/volume) 0.3 mg/dL 0.1-1.0 Serum or plasma alkaline phosphatase measurement (enzymatic activity/volume) 77 U/L 40-136 Serum or plasma aspartate aminotransferase measurement (enzymatic activity/ volume) 48 U/L 5-34 Serum or plasma alanine aminotransferase measurement (enzymatic activity/volume ) 29 U/L 0-55 Serum or plasma protein measurement (mass/volume) 5.4 g/dL 6.4-8.2 Serum or plasma albumin measurement (mass/volume) 3.1 g/dL 3.2-4.5 THYROID STIMULATING HORMONE - 10/27/16 04:10 THYROID STIMULATING HORMONE 1.48 u[iU]/mL 0.35-4.94 Automated blood complete blood count (hemogram) panel - 10/28/16 07:00 Blood leukocytes automated count (number/volume) 13.7 10*3/uL 4.3-11.0 Blood erythrocytes automated count (number/volume) 3.92 10*6/uL 4.35-5.85 Venous blood hemoglobin measurement (mass/volume) 12.3 g/dL 13.3-17.7 Blood hematocrit (volume fraction) 38 % 40-54 Automated erythrocyte mean corpuscular volume 96 [foz_us] 80-99 Automated erythrocyte mean corpuscular hemoglobin (mass per erythrocyte) 31 pg 25-34 Automated erythrocyte mean corpuscular hemoglobin concentration measurement ( mass/volume) 33 g/dL 32-36 Automated erythrocyte distribution width ratio 13.6 % 10.0-14.5 Automated blood platelet count (count/volume) 268 10*3/uL 130-400 Automated blood platelet mean volume measurement 10.7 [foz_us] 7.4-10.4 Comprehensive metabolic panel - 10/28/16 07:00 Serum or plasma sodium measurement (moles/volume) 147 mmol/L 135-145 Serum or plasma potassium measurement (moles/volume) 3.5 mmol/L 3.6-5.0 Serum or plasma chloride measurement (moles/volume) 113 mmol/L 98-107 Carbon dioxide 24 mmol/L 21-32 Serum or plasma anion gap determination (moles/volume) 10 mmol/L 5-14 Serum or plasma urea nitrogen measurement (mass/volume) 10 mg/dL 7-18 Serum or plasma creatinine measurement (mass/volume) 0.72 mg/dL 0.60-1.30 Serum or plasma urea nitrogen/creatinine mass ratio 14 NRG Serum or plasma creatinine measurement with calculation of estimated glomerular filtration rate > NRG Serum or plasma glucose measurement (mass/volume) 127 mg/dL 70-105 Serum or plasma calcium measurement (mass/volume) 8.6 mg/dL 8.5-10.1 Serum or plasma total bilirubin measurement (mass/volume) 0.4 mg/dL 0.1-1.0 Serum or plasma alkaline phosphatase measurement (enzymatic activity/volume) 82 U/L 40-136 Serum or plasma aspartate aminotransferase measurement (enzymatic activity/ volume) 40 U/L 5-34 Serum or plasma alanine aminotransferase measurement (enzymatic activity/volume ) 29 U/L 0-55 Serum or plasma protein measurement (mass/volume) 5.6 g/dL 6.4-8.2 Serum or plasma albumin measurement (mass/volume) 3.2 g/dL 3.2-4.5 Whole blood basic metabolic panel - 10/29/16 04:05 Serum or plasma sodium measurement (moles/volume) 146 mmol/L 135-145 Serum or plasma potassium measurement (moles/volume) 3.4 mmol/L 3.6-5.0 Serum or plasma chloride measurement (moles/volume) 114 mmol/L 98-107 Carbon dioxide 23 mmol/L 21-32 Serum or plasma anion gap determination (moles/volume) 9 mmol/L 5-14 Serum or plasma urea nitrogen measurement (mass/volume) 9 mg/dL 7-18 Serum or plasma creatinine measurement (mass/volume) 0.72 mg/dL 0.60-1.30 Serum or plasma urea nitrogen/creatinine mass ratio 13 NRG Serum or plasma creatinine measurement with calculation of estimated glomerular filtration rate > NRG Serum or plasma glucose measurement (mass/volume) 137 mg/dL 70-105 Serum or plasma calcium measurement (mass/volume) 8.7 mg/dL 8.5-10.1 Complete blood count (CBC) with automated white blood cell (WBC) differential - 10/30/16 11:38 Blood leukocytes automated count (number/volume) 9.5 10*3/uL 4.3-11.0 Blood erythrocytes automated count (number/volume) 3.62 10*6/uL 4.35-5.85 Venous blood hemoglobin measurement (mass/volume) 11.2 g/dL 13.3-17.7 Blood hematocrit (volume fraction) 35 % 40-54 Automated erythrocyte mean corpuscular volume 96 [foz_us] 80-99 Automated erythrocyte mean corpuscular hemoglobin (mass per erythrocyte) 31 pg 25-34 Automated erythrocyte mean corpuscular hemoglobin concentration measurement ( mass/volume) 32 g/dL 32-36 Automated erythrocyte distribution width ratio 14.0 % 10.0-14.5 Automated blood platelet count (count/volume) 236 10*3/uL 130-400 Automated blood platelet mean volume measurement 10.3 [foz_us] 7.4-10.4 Automated blood neutrophils/100 leukocytes 87 % 42-75 Automated blood lymphocytes/100 leukocytes 8 % 12-44 Blood monocytes/100 leukocytes 5 % 0-12 Automated blood eosinophils/100 leukocytes 0 % 0-10 Automated blood basophils/100 leukocytes 0 % 0-10 Blood neutrophils automated count (number/volume) 8.2 10*3 1.8-7.8 Blood lymphocytes automated count (number/volume) 0.8 10*3 1.0-4.0 Blood monocytes automated count (number/volume) 0.5 10*3 0.0-1.0 Automated eosinophil count 0.0 10*3/uL 0.0-0.3 Automated blood basophil count (count/volume) 0.0 10*3/uL 0.0-0.1 Complete blood count (CBC) with automated white blood cell (WBC) differential - 11/01/16 04:23 Blood leukocytes automated count (number/volume) 7.5 10*3/uL 4.3-11.0 Blood erythrocytes automated count (number/volume) 3.31 10*6/uL 4.35-5.85 Venous blood hemoglobin measurement (mass/volume) 10.0 g/dL 13.3-17.7 Blood hematocrit (volume fraction) 32 % 40-54 Automated erythrocyte mean corpuscular volume 96 [foz_us] 80-99 Automated erythrocyte mean corpuscular hemoglobin (mass per erythrocyte) 30 pg 25-34 Automated erythrocyte mean corpuscular hemoglobin concentration measurement ( mass/volume) 32 g/dL 32-36 Automated erythrocyte distribution width ratio 13.8 % 10.0-14.5 Automated blood platelet count (count/volume) 251 10*3/uL 130-400 Automated blood platelet mean volume measurement 10.3 [foz_us] 7.4-10.4 Automated blood neutrophils/100 leukocytes 79 % 42-75 Automated blood lymphocytes/100 leukocytes 14 % 12-44 Blood monocytes/100 leukocytes 6 % 0-12 Automated blood eosinophils/100 leukocytes 0 % 0-10 Automated blood basophils/100 leukocytes 0 % 0-10 Blood neutrophils automated count (number/volume) 5.9 10*3 1.8-7.8 Blood lymphocytes automated count (number/volume) 1.0 10*3 1.0-4.0 Blood monocytes automated count (number/volume) 0.5 10*3 0.0-1.0 Automated eosinophil count 0.0 10*3/uL 0.0-0.3 Automated blood basophil count (count/volume) 0.0 10*3/uL 0.0-0.1 Comprehensive metabolic panel - 11/01/16 04:23 Serum or plasma sodium measurement (moles/volume) 146 mmol/L 135-145 Serum or plasma potassium measurement (moles/volume) 3.7 mmol/L 3.6-5.0 Serum or plasma chloride measurement (moles/volume) 109 mmol/L 98-107 Carbon dioxide 25 mmol/L 21-32 Serum or plasma anion gap determination (moles/volume) 12 mmol/L 5-14 Serum or plasma urea nitrogen measurement (mass/volume) 13 mg/dL 7-18 Serum or plasma creatinine measurement (mass/volume) 0.70 mg/dL 0.60-1.30 Serum or plasma urea nitrogen/creatinine mass ratio 19 NRG Serum or plasma creatinine measurement with calculation of estimated glomerular filtration rate > NRG Serum or plasma glucose measurement (mass/volume) 143 mg/dL 70-105 Serum or plasma calcium measurement (mass/volume) 8.8 mg/dL 8.5-10.1 Serum or plasma total bilirubin measurement (mass/volume) 0.4 mg/dL 0.1-1.0 Serum or plasma alkaline phosphatase measurement (enzymatic activity/volume) 134 U/L 40-136 Serum or plasma aspartate aminotransferase measurement (enzymatic activity/ volume) 53 U/L 5-34 Serum or plasma alanine aminotransferase measurement (enzymatic activity/volume ) 62 U/L 0-55 Serum or plasma protein measurement (mass/volume) 5.6 g/dL 6.4-8.2 Serum or plasma albumin measurement (mass/volume) 2.7 g/dL 3.2-4.5 [id number] - 07/23/17 08:41 Serum or plasma urea nitrogen measurement (mass/volume) 14 mg/dL 7-18 Serum or plasma creatinine measurement (mass/volume) 0.82 mg/dL 0.60-1.30 Serum or plasma urea nitrogen/creatinine mass ratio 17 NRG Serum or plasma creatinine measurement with calculation of estimated glomerular filtration rate > NRG Encounters ACCT No. Visit Date/Time Discharge Status Pt. Type Provider Facility Loc./Unit Complaint [id number] 11/18/2013 17:45:00 12/04/2013 13:40:00 DIS [id number] 11/18/2013 17:45:00 11/18/2013 17:45:00 DIS Outpatient ABDULLAHI MULLEN, [facility] OTHER [id number] 07/23/2017 08:31:00 07/23/2017 23:59:59 CLS Outpatient PAMELA MULLEN, YUSEF [facility] RAD LOWER ABD PAIN [id number] 07/01/2017 07:36:00 07/01/2017 23:59:59 CLS Outpatient FABIOLA OMALLEY MD [facility] RAD UNSPECIFIED MASTOIDTIS, RT EAR [id number] 06/25/2017 13:30:00 06/25/2017 23:59:59 CLS Outpatient FABIOLA OMALLEY MD [facility] RAD F02.80 [id number] 10/29/2016 11:25:00 11/06/2016 14:32:00 DIS Inpatient PENNY MULLEN, MIKAYLA Martinez [facility] 4TH SWB-RT LOWER LOBE PNEUMONIA/SEVERE DECONDITIONING [id number] 10/26/2016 15:03:00 10/29/2016 11:24:00 DIS Inpatient LESLI MULLEN, SALVATORE Fenton [facility] 4TH RLL PNEUMONIA, FAILURE OF OUTPATIENT THERAPY [id number] 10/19/2016 13:41:00 10/19/2016 16:28:00 DIS Emergency MADI MACDONALD RN [facility] ER SOA [id number] 03/11/2016 12:24:00 03/11/2016 12:54:00 DIS Emergency MADI MACDONALD RN [employer] [facility] ER L EYE INJ [id number] 03/07/2015 21:00:00 03/08/2015 06:30:00 DIS Outpatient FABIOLA OMALLEY MD [facility] SLEEP [id number] 03/11/2014 02:02:00 03/11/2014 02:17:00 DIS Emergency [id number] 11/08/2013 09:46:00 11/08/2013 12:23:00 DIS Emergency [id number] 08/14/2013 14:18:00 08/14/2013 23:59:59 CLS Outpatient [id number] 08/02/2017 08:15:00 PEN Preadmit PAMELA MULLEN, YUSEF Fenton [facility] RAD ABNORMAL CT, RUQ PAIN
[2017-07-28] MEDS ORDERED: cefTRIAXone 1 GM (ROCEPHIN) VIAL ONE (17:17)
[2017-07-28] MEDS ORDERED: NS (IVPB) 50 ML ONE (17:18)
[2017-07-28] MEDS ORDERED: LORazepam INJ 2 MG/ML (ATIVAN) VIAL ONE (17:30)
[2017-07-28] MEDS ORDERED: cefTRIAXone INJECTION 2,000 MG in NS (IVPB) 50 ML IV ONE (17:30)
--- NOTE | 2017-07-28 17:40 | Diagnostic Imaging Report ---
INDICATION: Hypoxia. COMPARISON: 11/01/2016. EXAMINATION: Single view of the chest was obtained. FINDINGS: There are extensive bilateral patchy airspace infiltrates in both lower lobes, right somewhat greater than left. The patient's heart size is within normal limits and there is no gross overdistention of the vascularity. No definite pleural substantial pleural fluid volume. There is no pneumothorax. IMPRESSION: Significant bilateral infiltrates, greatest in the lower lobes, right more so than left, suspicious for pneumonia. Dictated by: Dictated on workstation # [id number]
[2017-07-28] MEDS ORDERED: LORazepam INJ 2 MG/ML (ATIVAN) VIAL IVP ONE (17:45)
[2017-07-28] MEDS ORDERED: VANCOMYCIN INJECTION 1,000 MG in NS (IVPB) 250 ML IV ONE (18:00)
[2017-07-28 18:06] LABS: BASOPHILS % (AUTO) 0 % (0-10); EOSINOPHILS # (AUTO) 0.1 10^3/uL (0.0-0.3); EOSINOPHILS % (AUTO) 1 % (0-10); LYMPHOCYTES # (AUTO) 0.6 X 10^3 (1.0-4.0); LYMPHOCYTES % (AUTO) 11 % (12-44); MEAN CORPUSCULAR HEMOGLOBIN 31 PG (25-34); MEAN CORPUSCULAR HGB CONC 32 G/DL (32-36); MEAN CORPUSCULAR VOLUME 98 FL (80-99); MEAN PLATELET VOLUME 11.4 FL (7.4-10.4); MONOCYTES # (AUTO) 0.4 X 10^3 (0.0-1.0); MONOCYTES % (AUTO) 8 % (0-12); NEUTROPHILS # (AUTO) 4.2 X 10^3 (1.8-7.8); NEUTROPHILS % (AUTO) 80 % (42-75); PLATELET COUNT 281 10^3/uL (130-400); RED BLOOD COUNT 3.76 10^6/uL (4.35-5.85); RED CELL DISTRIBUTION WIDTH 14.2 % (10.0-14.5); WHITE BLOOD COUNT 5.3 10^3/uL (4.3-11.0)
[2017-07-28 18:10] LABS: BILIRUBIN,URINE NEGATIVE (NEGATIVE); KETONES,URINE NEGATIVE (NEGATIVE); LEUKOCYTE ESTERASE ,URINE 1+ (NEGATIVE); NITRITE,URINE NEGATIVE (NEGATIVE); PH,URINE 5 (5-9); PROTEIN,URINE 3+ (NEGATIVE); UROBILINOGEN,URINE 1 MG/DL (NORMAL)
[2017-07-28] MEDS ORDERED: LORA10TA7 PO (18:12)
[2017-07-28] MEDS ORDERED: QUET100T69 PO (18:12)
[2017-07-28] MEDS ORDERED: VNL75T PO (18:12)
[2017-07-28] MEDS ORDERED: QUET25TA73 PO (18:12)
[2017-07-28] MEDS ORDERED: MEMA10TA22 PO (18:12)
[2017-07-28] MEDS ORDERED: MONT10TA24 PO (18:12)
[2017-07-28 18:16] LABS: WBC,URINE 0-2 /HPF
[2017-07-28 18:19] LABS: ALBUMIN 3.3 GM/DL (3.2-4.5); BILIRUBIN,TOTAL 0.5 MG/DL (0.1-1.0); CALCIUM 10.4 MG/DL (8.5-10.1); CREATININE SERUM 1.42 MG/DL (0.60-1.30); POTASSIUM 4.5 MMOL/L (3.6-5.0); TOTAL PROTEIN 6.4 GM/DL (6.4-8.2)
[2017-07-28] MEDS ORDERED: TRIA15CR TP (18:19)
[2017-07-28] MEDS ORDERED: LACT-157 PO (18:19)
[2017-07-28] MEDS ORDERED: ARFO15VI3 IH (18:19)
--- NOTE | 2017-07-28 18:24 | Diagnostic Imaging Report ---
PROCEDURE: CT head without contrast. TECHNIQUE: Multiple contiguous axial images were obtained through the brain without the use of intravenous contrast. INDICATION: Hypoxia with respiratory distress. COMPARISON: 07/01/2017. FINDINGS: Premature cortical atrophy is a stable finding. There is no intracranial hemorrhage and no mass or mass effect. Some chronic white matter small vessel sequelae stable. Exam sensitivity limited by motion. No abnormal extra-axial collection. No hemorrhage. No mass effect. Orbits, paranasal sinuses and calvarium are nonacute. There appears to be postsurgical changes to the right mastoid bone with the bowl occupied by fluid or tissue, unchanged. IMPRESSION: Stable premature atrophy and white matter disease. Limited by motion with no appreciable hemorrhage or focal edema. Stable postsurgical changes to the right mastoid. Dictated by: Dictated on workstation # [id number]
--- NOTE | 2017-07-28 18:24 | ED General ---
General Chief Complaint: Respiratory Problems Stated Complaint: STROKE Nursing Triage Note: PT TO [facility] WITH CC OF SOB, PT FOUND SLUMPED OVER IN HIS CHAIR, O2 SATS IN THE 70 'S ON EMS ARRIVAL. IN ON PT ARRIVAL. BI PAP APPLIED BY RESP SHORTLY AFTER ARRIVAL. PT'S EYES OPEN BUT NOT ANSWERING QUESTIONS, 50 RESP/MIN ON 15 L NRM ON ARRIVAL. Nursing Sepsis Screen: No Definite Risk Source of Information: Patient, EMS, Family Exam Limitations: Physical Impairments History of Present Illness Time Seen by Provider: 18:19 Initial Comments This 57-year-old white male presents from the senior living in an unresponsive state. The patient on ruffling hemmer automatic arrival was found to have markedly decreased sats in the 70s. He was given supplemental oxygen in route to the emergency department. Upon arrival the patient's sats were in the low 80s. Through using high flow oxygen, variations of BiPAP, and IV Ativan we were able to increase patient's sats in the low 90s. According the senior living the patient had been febrile to a temperature of approximately 101. He had had no significant cough according to the senior living furthermore he denied any other readily identifiable source for the fever. The patient's recent past medical history of significance includes progressive Parkinson's and agitation. The patient is essentially nonverbal. He does not remember his family. A family member (Erica) who has DURABLE POWER OF CROWNING INSPECTOR requests that the patient be made DO NOT RESUSCITATE and that the patient not be intubated. Supplemental external forms of respiratory support are reasonable from her perspective. Fluids and antibiotics are to be used as well. Allergies and Home Medications Allergies Coded Allergies: No Known Drug Allergies (Unverified , 04/01/09) Home Medications Arformoterol Tartrate 15 Mcg/2 Ml Vial.neb, 15 MCG IH Q12H PRN for CONGESTION, ( Reported) Atorvastatin Calcium 20 Mg Tablet, 20 MG PO HS, (Reported) Carbamide Peroxide 15 Ml Drops, 5 DROPS EACH EAR BID PRN for HARD WAX for 10 Days, (Reported) Cholecalciferol (Vitamin D3) 1,000 Unit Tablet, 2,000 UNIT PO DAILY, (Reported) TAKES 2 (1000 UNIT) TABLETS Cyanocobalamin 1,000 Mcg/Ml Inj, 1,000 MCG IJ MONTHLY, (Reported) Docusate Sodium 100 Mg Capsule, 100 MG PO BID, (Reported) Folic Acid 1 Mg Tablet, 1 MG PO DAILY, (Reported) Guaifenesin 100 Mg/5 Ml Liquid, 5-10 ML PO EVERY 4-6 HOURS PRN for COUGH, ( Reported) Ibuprofen 600 Mg Tablet, 600 MG PO TID PRN for PAIN/TEMP OVER 100.5, (Reported) Ipratropium/Albuterol Sulfate 3 Ml Ampul.neb, 3 ML NEB EVERY 4-6 HOURS PRN for CONGESTION, (Reported) Lactose-Reduced Food 237 Ml Liquid, 237 ML PO BID, (Reported) Loratadine 10 Mg Tablet, 10 MG PO DAILY, (Reported) Lorazepam 0.5 Mg Tablet, 0.5 MG PO HS, (Reported) Memantine HCl 10 Mg Tablet, 10 MG PO BID, (Reported) Metformin HCl 500 Mg Tablet, 500 MG PO BID, (Reported) Mirtazapine 15 Mg Tablet, 15 MG PO HS, (Reported) Montelukast Sodium 10 Mg Tablet, 10 MG PO DAILY, (Reported) Quetiapine Fumarate 25 Mg Tablet, 25 MG PO DAILY, (Reported) Quetiapine Fumarate 100 Mg Tablet, 100 MG PO HS, (Reported) Tamsulosin HCl 0.4 Mg Cap.er.24h, 0.4 MG PO 1700, (Reported) Triamcinolone Acetonide 15 Gm Cream..g., TP BID PRN for ITCHING, (Reported) Venlafaxine HCl 75 Mg Tab, 75 MG PO BID, (Reported) Constitutional: fever EENTM: other (patient has had an ear lesion which on CT of the head recently was felt to be consistent with a cholesteatoma.) Respiratory: cough, short of breath Cardiovascular: No chest pain Gastrointestinal: No diarrhea, No vomiting Genitourinary: No hematuria Musculoskeletal: no symptoms reported Skin: No rash Psychiatric/Neurological: Other (progressive Parkinson's.) Hematologic/Lymphatic: No Symptoms Reported Immunological/Allergic: no symptoms reported Past Kascvvi-Hjsvah-Ecjfgb Hx Patient Social History Alcohol Use: Denies Use Recreational Drug Use: No Smoking Status: Unknown if Ever Smoked Recent Foreign Travel: No Contact w/Someone Who Travel: No Recent Infectious Disease Expo: No Recent Hopitalizations: Yes (ED FOR PNEM) Immunizations Up To Date Date of Influenza Vaccine: May 16, 2016 Surgeries History of Surgeries: Yes (KNEE SURGERY LEFT, T & A) Respiratory History of Respiratory Disorde: No Cardiovascular History of Cardiac Disorders: No Neurological History of Neurological Disord: Yes Reproductive System Hx Reproductive Disorders: No Sexually Transmitted Disease: No HIV/AIDS: No Gastrointestinal History of Gastrointestinal Di: Yes (CONSTIPATION AT TIMES) Gastrointestinal Disorders: Gastroesophageal Reflux Musculoskeletal History of Musculoskeletal Dis: No Endocrine History of Endocrine Disorders: No Psychosocial History of Psychiatric Problem: Yes Behavioral Health Disorders: Depression Blood Transfusions History of Blood Disorders: No Reviewed Nursing Assessment Reviewed/Agree w Nursing PMH: Yes Family Medical History Family Medial History: Patient reports no known family medical history. Physical Exam-Suspected Sepsis Physical Exam Vital Signs Vital Sign - Last 12Hours 07/28/17 16:55 Temp 99.2 Pulse 154 Resp 50 B/P (MAP) 100/88 (92) Pulse Ox 80 O2 Delivery Non Rebreather O2 Flow Rate 15.00 Capillary Refill : Less Than 3 Seconds Blood Pressure Mean: 92 General Appearance: Moderate Distress (poor dentition) Neck: Normal Inspection Respiratory: Rales (rales bilaterally right greater than left) Cardiovascular: Tachycardia Gastrointestinal: Soft Extremity: Other (patient is capable and moving for extremities in response to painful stimuli) Neurologic/Psychiatric: Other (it is difficult to assess the patient's neurologic status. Although he speaks I am not able to understand the words. He moves 4 extremities. He appears to have sensation in all 4 extremities as well) Skin: normal color, warm/dry Focused Exam Evaluation Lactate Level Laboratory Tests 07/28/17 16:50: Lactic Acid Level 11.85*H Lactic Acid Level Laboratory Tests Test 07/28/17 16:50 Lactic Acid Level 11.85 MMOL/L (0.50-2.00) *H Progress/Results/Core Measures Suspected Sepsis Recent Fever Within 48 Hours: Yes Infection Criteria Present: None New/Unexplained Altered Menta: Yes Sepsis Screen: No Definite Risk Sepsis Diagnosis: SIRS Temperature:99.2 Pulse: 159 Respiratory Rate: 57 Laboratory Tests 07/28/17 16:50: White Blood Count 5.3 Blood Pressure 109 /78 Mean: 92 Laboratory Tests 07/28/17 16:50: Lactic Acid Level 11.85*H Laboratory Tests 07/28/17 16:50: Platelet Count 281 Results/Orders Lab Results Laboratory Tests Test 07/28/17 16:50 07/28/17 17:40 Range/Units White Blood Count 5.3 4.3-11.0 10^3/uL Red Blood Count 3.76 L 4.35-5.85 10^6/uL Hemoglobin 11.8 L 13.3-17.7 G/DL Hematocrit 37 L 40-54 % Mean Corpuscular Volume 98 80-99 FL Mean Corpuscular Hemoglobin 31 25-34 PG Mean Corpuscular Hemoglobin Concent 32 32-36 G/DL Red Cell Distribution Width 14.2 10.0-14.5 % Platelet Count 281 130-400 10^3/uL Mean Platelet Volume 11.4 H 7.4-10.4 FL Neutrophils (%) (Auto) 80 H 42-75 % Lymphocytes (%) (Auto) 11 L 12-44 % Monocytes (%) (Auto) 8 0-12 % Eosinophils (%) (Auto) 1 0-10 % Basophils (%) (Auto) 0 0-10 % Neutrophils # (Auto) 4.2 1.8-7.8 X 10^3 Lymphocytes # (Auto) 0.6 L 1.0-4.0 X 10^3 Monocytes # (Auto) 0.4 0.0-1.0 X 10^3 Eosinophils # (Auto) 0.1 0.0-0.3 10^3/uL Basophils # (Auto) 0.0 0.0-0.1 10^3/uL Lactic Acid Level 11.85 *H 0.50-2.00 MMOL/L Urine Color YELLOW Urine Clarity CLEAR Urine pH 5 5-9 Urine Specific [place] 1.020 1.016-1.022 Urine Protein 3+ H NEGATIVE Urine Glucose (UA) 3+ H NEGATIVE Urine Ketones NEGATIVE NEGATIVE Urine Nitrite NEGATIVE NEGATIVE Urine Bilirubin NEGATIVE NEGATIVE Urine Urobilinogen 1 NORMAL MG/DL Urine Leukocyte Esterase 1+ H NEGATIVE Urine RBC (Auto) 1+ H NEGATIVE Urine RBC NONE /HPF Urine WBC 0-2 /HPF Urine Crystals PRESENT H /LPF Urine Amorphous Sediment FEW PABLO URATES H /LPF Urine Bacteria NONE /HPF Urine Casts NONE /LPF Urine Mucus NEGATIVE /LPF Urine Culture Indicated NO My Orders Orders - ROSIE BAUTISTA MD Albuterol Pre-Mix Nebs (Rt) (Proventil (07/28/17 16:51) Albuterol/Ipra Inhalation Soln (Duoneb I (07/28/17 16:51) Ceftriaxone Injection (Rocephin Injectio (07/28/17 17:30) Ceftriaxone Injection (Rocephin Injectio (07/28/17 17:17) Ns (Ivpb) (Sodium Chloride 0.9% Ivpb Bag (07/28/17 17:18) Lorazepam Injection (Ativan Injection) (07/28/17 17:30) Chest 1 View, Ap/Pa Only (07/28/17 17:33) Lorazepam Injection (Ativan Injection) (07/28/17 17:45) Ct Head Wo (07/28/17 17:50) Cbc With Automated Diff (07/28/17 17:50) Comprehensive Metabolic Panel (07/28/17 17:50) Lactic Acid Analyzer (07/28/17 17:50) Blood Culture (07/28/17 17:50) Ua Culture If Indicated (07/28/17 17:50) Ekg Tracing (07/28/17 17:50) Ns Iv 1000 Ml (Sodium Chloride 0.9%) (07/28/17 18:00) Vancomycin Injection (Vancomycin Injecti (07/28/17 18:00) Medications Given in ED Current Medications Medications Dose Ordered Sig/Steven Route Start Time Stop Time Status Last Admin Dose Admin Albuterol Sulfate 2.5 mg STK-MED ONCE INH 07/28/17 16:51 07/28/17 16:53 DC 07/28/17 17:56 2.5 MG Albuterol/ Ipratropium 3 ml STK-MED ONCE .ROUTE 07/28/17 16:51 07/28/17 16:53 DC 07/28/17 17:56 3 ML Ceftriaxone Sodium 1,000 mg STK-MED ONCE .ROUTE 07/28/17 17:17 07/28/17 17:19 DC 07/28/17 17:25 2,000 MG Lorazepam 1 mg ONCE ONCE IVP 07/28/17 17:45 07/28/17 17:47 DC 07/28/17 17:35 1 MG Sodium Chloride 50 ml @ ud STK-MED ONCE .ROUTE 07/28/17 17:18 07/28/17 17:20 DC 07/28/17 17:25 100 MLS/HR Vital Signs/I&O Vital Sign - Last 12Hours 07/28/17 07/28/17 16:55 17:57 Temp 99.2 Pulse 154 159 Resp 50 57 B/P (MAP) 100/88 (92) Pulse Ox 80 85 O2 Delivery Non Rebreather O2 Flow Rate 15.00 Capillary Refill : Less Than 3 Seconds Blood Pressure Mean: 92 Progress Note : Time: 18:25 Progress Note The patient's poor oxygenation was supported with high flow oxygen and BiPAP. Patient's sats reach the low 90s after he was given a milligram of Ativan IV for his agitation. Appropriate laboratory evaluation was undertaken including lactic acid and blood cultures. After telephone consultation with Dr. Neville the patient was admitted to the ICU. Per the family's request patient was made DO NOT RESUSCITATE. The patient received appropriate bolus of fluid for sepsis protocol (30 mg/kg) and combination antibiotics of Rocefin, Vanc, and Zosyn. CT of the head was done. Departure Communication (Admissions) Time/Spoke to Admitting Phy: 18:[address] Neville Impression Impression: Primary Impression: RLL pneumonia Qualified Codes: J69.0 - Pneumonitis due to inhalation of food and vomit Additional Impression: Sepsis Qualified Codes: A41.9 - Sepsis, unspecified organism Disposition: ADMITTED INPATIENT Condition: Improved Admissions Decision to Admit Reason: Admit from ER (General) Decision to Admit/Date: Jul 28, 2017 Time/Decision to Admit Time: 18:33 Departure-Patient Inst. Referrals: FABIOLA OMALLEY MD (PCP/Family) Primary Care Physician ROSIE BAUTISTA MD Jul 28, 2017 18:24
[2017-07-28] MEDS: NS IV 1000 ML 1,000 ML IV SCH ×3 (18:25→22:16)
--- OUTSIDE RECORDS SUMMARY | 2017-07-28 18:48 | XMS REPORT | Continuity of Care Document ---
Author Author [employer] Organization [facility] Address Unknown Phone Unavailable Care Team Providers Care Color Control Supervisor Name Role Phone [employer] Unavailable Unavailable Problems Medications Allergies, Adverse Reactions, Alerts Immunizations Results Vital Signs Encounters Procedures Plan of Care Social History Assessment and Plan Family History Value Date Source Advance Directives Order Name Results Value Date Source
--- OUTSIDE RECORDS SUMMARY | 2017-07-28 18:48 | XMS REPORT | Clinical Summary ---
Author Author [facility] Organization [facility] Address Unknown Phone Unavailable Care Team Providers Care Web Ui Software Engineer Name Role Phone PCP Unavailable Source Comments Some departments are not documenting in the electronic medical record. If you do not see the information that you expected, contact Release of Information in the Health Information Management department at [phone] for further assistance in locating additional records.[facility] Allergies Not on File Current Medications [...]
--- OUTSIDE RECORDS SUMMARY | 2017-07-28 18:49 | XMS REPORT | Continuity of Care Document ---
Author Author [facility] Address Unknown Phone Unavailable Allergies Active Description Code Type Severity Reaction Onset Reported/Identified Relationship to Patient Clinical Status Yes No Known Drug Allergies [id number] Drug Allergy Mild N/A 04/01/2009 Yes MRSA [...] FUNCTION STUDY 11/18/2013 MORELIA FERNANDO MD V58.69 RESIDENTIAL MEDICATION USE 12/04/2013 JANNIE BENSON MD 294.9 [...] EYE AND ADNEXA 03/11/2016 MADI MACDONALD RN [employer] Ot S05.02XA INJ CONJUNCTIVA AND CORNEAL ABRASION W/O 03/11/2016 MADI MACDONALD RN [employer] Ot X58.XXXA EXPOSURE TO OTHER SPECIFIED FACTORS, INI 03/11/2016 MADI MACDONALD RN [employer] Ot Y92.[address] IN UNSP NON-INSTITUT (PRIVATE 03/11/2016 MADI MACDONALD RN [employer] Ot Y99.8 OTHER EXTERNAL CAUSE STATUS 10/19/2016 MADI MACDONALD RN [employer] Ot F79 UNSPECIFIED INTELLECTUAL DISABILITIES 10/19/2016 MADI MACDONALD RN [employer] Ot J18.9 PNEUMONIA, UNSPECIFIED ORGANISM 10/19/2016 MADI MACDONALD RN [employer] Ot R06.02 SHORTNESS OF BREATH 10/21/2016 MADI MACDONALD RN [employer] Ot F79 UNSPECIFIED INTELLECTUAL DISABILITIES 10/21/2016 MADI MACDONALD RN [employer] Ot J18.9 PNEUMONIA, UNSPECIFIED ORGANISM 10/21/2016 MADI MACDONALD RN [employer] Ot R06.02 SHORTNESS OF BREATH 10/21/2016 MADI MACDONALD RN [employer] Ot F79 UNSPECIFIED INTELLECTUAL DISABILITIES 10/21/2016 MADI MACDONALD RN [employer] Ot J18.9 PNEUMONIA, UNSPECIFIED ORGANISM 10/21/2016 MADI MACDONALD RN [employer] Ot R06.02 SHORTNESS OF BREATH 10/29/2016 SALVATORE BALLESTEROS MD Ot E87.0 HYPEROSMOLALITY AND HYPERNATREMIA 10/29/2016 SALVATORE BALLESTEROS MD Ot F32.9 MAJOR DEPRESSIVE DISORDER, SINGLE EPISOD 10/29/2016 SALVATORE BALLESTEROS MD Ot F79 UNSPECIFIED INTELLECTUAL DISABILITIES 10/29/2016 SALVATORE BALLESTEROS MD Ot J18.9 PNEUMONIA, UNSPECIFIED ORGANISM [...] Procedures Code [place] [address] ELECTROCARDIOGRAM REPORT MORELIA FERNANDO MD 11/18/2013 Results Test Result Range EKG - 11/18/13 19:41 EKG SMR COMPLETE BLOOD COUNT - 11/18/13 19:45 Platelet 254 10^3u 142-424 MPV 10.6 FL 9.4-12.4 Davis # 0.59 10^3u 0.0-1.0 RBC 4.01 10^6u 4.04-6.13 Davis % 6.9 % 0-12 RDW 13.2 % [...] Urobilinogen 0.2 0.2-1.0 Urine RBC NONESEEN Specific [place] 1.020 1.010-1.020 Urine WBC NONESEEN Urine Bacteria [...] NRG Blood erythrocyte morphology finding identification NORMAL [facility] Comprehensive metabolic panel - 10/26/16 [...] plasma albumin measurement (mass/volume) 2.7 g/dL 3.2-4.5 [id number] - 07/23/17 08:41 Serum or plasma urea nitrogen measurement (mass/volume) 14 mg/dL 7-18 Serum or plasma creatinine measurement (mass/volume) 0.82 mg/dL 0.60-1.30 Serum or plasma urea nitrogen/creatinine mass ratio 17 NRG Serum or plasma creatinine measurement with calculation of estimated glomerular filtration rate > NRG Encounters ACCT No. Visit Date/Time Discharge Status Pt. Type Provider Facility Loc./Unit Complaint [id number] 11/18/2013 17:45:00 12/04/2013 13:40:00 [id number] 11/18/2013 17:45:00 11/18/2013 17:45:00 DIS Outpatient ABDULLAHI MULLEN, [facility] OTHER [id number] 07/23/2017 08:31:00 07/23/2017 23:59:59 CLS Outpatient PAMELA MULLEN, YUSEF [facility] RAD LOWER ABD PAIN [id number] 07/01/2017 07:36:00 07/01/2017 23:59:59 CLS Outpatient FABIOLA OMALLEY MD [facility] RAD UNSPECIFIED MASTOIDTIS, RT EAR [id number] 06/25/2017 13:30:00 06/25/2017 23:59:59 CLS Outpatient FABIOLA OMALLEY MD [facility] RAD F02.80 [id number] 10/29/2016 11:25:00 11/06/2016 14:32:00 DIS Inpatient PENNY MULLEN, MIKAYLA Martinez [facility] 4TH SWB-RT LOWER LOBE PNEUMONIA/SEVERE DECONDITIONING [id number] 10/26/2016 15:03:00 10/29/2016 11:24:00 DIS Inpatient LESLI MULLEN, SALVATORE Fenton [facility] 4TH RLL PNEUMONIA, FAILURE OF OUTPATIENT THERAPY [id number] 10/19/2016 13:41:00 10/19/2016 16:28:00 DIS Emergency MADI MACDONALD RN [employer] [facility] ER SOA [id number] 03/11/2016 12:24:00 03/11/2016 12:54:00 DIS Emergency MADI MACDONALD RN [employer] [facility] ER L EYE INJ [id number] 03/07/2015 21:00:00 03/08/2015 06:30:00 DIS Outpatient FABIOLA OMALLEY MD [facility] SLEEP [id number] 03/11/2014 02:02:00 03/11/2014 02:17:00 DIS Emergency [id number] 11/08/2013 09:46:00 11/08/2013 12:23:00 DIS Emergency [id number] 08/14/2013 14:18:00 08/14/2013 23:59:59 CLS Outpatient [id number] 08/02/2017 08:15:00 PEN Preadmit PAMELA MULLEN, YUSEF Fenton [facility] RAD ABNORMAL CT, RUQ PAIN
[2017-07-28] MEDS ORDERED: NS IV PRN (20:00)
[2017-07-28] MEDS ORDERED: RT-ALBUTEROL SULF 2.5 MG/3 ML PRE-MIX VIAL INH PRN (20:00)
[2017-07-28] MEDS ORDERED: IBUPROFEN 600 MG (MOTRIN) TAB PO PRN (20:45)
[2017-07-28] MEDS: ENOXAPARIN 40 MG/0.4 ML (LOVENOX) SYR SC SCH (20:48)
[2017-07-28] MEDS: PIPERACILLIN SODIUM/TAZOBACTAM 4.5 GM in NS (IVPB) 100 ML IV SCH (20:50)
[2017-07-28] MEDS: RT-ALBUTEROL SULF 2.5 MG/3 ML PRE-MIX VIAL INH SCH (21:59)
[2017-07-29] VITALS (12 sets, daily range): BP systolic 95–123; BP diastolic 62–84
[2017-07-29] MEDS: inSUlin (REGULAR) HUMAN 1 UNIT/0.01 ML (CHARGE PER UNIT) SC SCH ×3 (00:55→11:18)
[2017-07-29] MEDS: RT-ALBUTEROL SULF 2.5 MG/3 ML PRE-MIX VIAL INH SCH ×5 (02:06→10:00)
[2017-07-29] MEDS: NS IV 1000 ML 1,000 ML IV SCH ×3 (02:16→07:56)
[2017-07-29 02:49] LABS: BASOPHILS % (AUTO) 0 % (0-10); EOSINOPHILS # (AUTO) 0.3 10^3/uL (0.0-0.3); EOSINOPHILS % (AUTO) 5 % (0-10); LYMPHOCYTES # (AUTO) 0.5 X 10^3 (1.0-4.0); LYMPHOCYTES % (AUTO) 9 % (12-44); MEAN CORPUSCULAR HEMOGLOBIN 32 PG (25-34); MEAN CORPUSCULAR HGB CONC 32 G/DL (32-36); MEAN CORPUSCULAR VOLUME 100 FL (80-99); MEAN PLATELET VOLUME 10.5 FL (7.4-10.4); MONOCYTES # (AUTO) 0.2 X 10^3 (0.0-1.0); MONOCYTES % (AUTO) 4 % (0-12); NEUTROPHILS # (AUTO) 4.5 X 10^3 (1.8-7.8); NEUTROPHILS % (AUTO) 82 % (42-75); PLATELET COUNT 181 10^3/uL (130-400); RED BLOOD COUNT 3.29 10^6/uL (4.35-5.85); RED CELL DISTRIBUTION WIDTH 14.3 % (10.0-14.5); WHITE BLOOD COUNT 5.5 10^3/uL (4.3-11.0)
[2017-07-29 03:09] LABS: CALCIUM 8.4 MG/DL (8.5-10.1); CREATININE SERUM 1.67 MG/DL (0.60-1.30); MAGNESIUM 1.7 MG/DL (1.8-2.4); PHOSPHORUS 2.5 MG/DL (2.3-4.7); POTASSIUM 4.3 MMOL/L (3.6-5.0)
[2017-07-29] MEDS: PIPERACILLIN SODIUM/TAZOBACTAM 4.5 GM in NS (IVPB) 100 ML IV SCH (04:11)
[2017-07-29 04:36] LABS: ABG BASE EXCESS -4.7 MMOL/L (-2.5-2.5); ABG HCO3 20 MMOL/L (23-27); ABG OXYGEN SATURATION 99 % (94-100); ABG PCO2 39 MMHG (35-45); ABG PO2 167 MMHG (79-93); ABG TCO2 21.4 MMOL/L (21.0-31.0)
[2017-07-29 04:37] LABS: ABG PH 7.33 (7.37-7.43)
[2017-07-29 04:38] LABS: ALLENS TEST YES-POS; PATIENT TEMP 98.3
[2017-07-29] MEDS ORDERED: MAGNESIUM 1 GM/100 ML IVPB 100 ML IV SCH (06:00)
[2017-07-29] MEDS ORDERED: KCL 20 MEQ TAB (K-DUR) PO SCH (06:00)
[2017-07-29] MEDS ORDERED: POTASSIUM CL 10MEQ/50ML IVPB 50 ML IV SCH (06:00)
--- NOTE | 2017-07-29 07:04 | Pulmonary Consultation ---
History of Present Illness History of Present Illness Date of Consultation 07/29/17 06:59 Time Seen by Provider: 06:59 Date of Admission History of Present Illness 57yo with hx of dementia/nonverbal and parkinsons from from [facility] presented to ED via EMS after being found slumped over in chair. Sp02 was found to be in the 70's. BiPAP was placed on patient in the ED. Pt has also been running a fever of 101. Patient is a DNR. [facility] has questioned if he is aspirating on PO foods. I am consulted for iCU management. Allergies and Home Medications Allergies Coded Allergies: No Known Drug Allergies (Unverified , 04/01/09) Home Medications Arformoterol Tartrate 15 Mcg/2 Ml Vial.neb, 15 MCG IH Q12H PRN for CONGESTION, ( Reported) Atorvastatin Calcium 20 Mg Tablet, 20 MG PO HS, (Reported) Carbamide Peroxide 15 Ml Drops, 5 DROPS EACH EAR BID PRN for HARD WAX for 10 Days, (Reported) Cholecalciferol (Vitamin D3) 1,000 Unit Tablet, 2,000 UNIT PO DAILY, (Reported) TAKES 2 (1000 UNIT) TABLETS Cyanocobalamin 1,000 Mcg/Ml Inj, 1,000 MCG IJ MONTHLY, (Reported) Docusate Sodium 100 Mg Capsule, 100 MG PO BID, (Reported) Folic Acid 1 Mg Tablet, 1 MG PO DAILY, (Reported) Guaifenesin 100 Mg/5 Ml Liquid, 5-10 ML PO EVERY 4-6 HOURS PRN for COUGH, ( Reported) Ibuprofen 600 Mg Tablet, 600 MG PO TID PRN for PAIN/TEMP OVER 100.5, (Reported) Ipratropium/Albuterol Sulfate 3 Ml Ampul.neb, 3 ML NEB EVERY 4-6 HOURS PRN for CONGESTION, (Reported) Lactose-Reduced Food 237 Ml Liquid, 237 ML PO BID, (Reported) Loratadine 10 Mg Tablet, 10 MG PO DAILY, (Reported) Lorazepam 0.5 Mg Tablet, 0.5 MG PO HS, (Reported) Memantine HCl 10 Mg Tablet, 10 MG PO BID, (Reported) Metformin HCl 500 Mg Tablet, 500 MG PO BID, (Reported) Mirtazapine 15 Mg Tablet, 15 MG PO HS, (Reported) Montelukast Sodium 10 Mg Tablet, 10 MG PO DAILY, (Reported) Quetiapine Fumarate 25 Mg Tablet, 25 MG PO DAILY, (Reported) Quetiapine Fumarate 100 Mg Tablet, 100 MG PO HS, (Reported) Tamsulosin HCl 0.4 Mg Cap.er.24h, 0.4 MG PO 1700, (Reported) Triamcinolone Acetonide 15 Gm Cream..g., TP BID PRN for ITCHING, (Reported) Venlafaxine HCl 75 Mg Tab, 75 MG PO BID, (Reported) Past Qrilptq-Seycqt-Fiqroc Hx Patient Social History Alcohol Use: Denies Use Recreational Drug Use: No Smoking Status: Unknown if Ever Smoked Recent Foreign Travel: No Contact w/Someone Who Travel: No Recent Infectious Disease Expo: No Recent Hopitalizations: Yes (ED FOR PNEM) Immunizations Up To Date Date of Influenza Vaccine: May 16, 2016 Surgeries History of Surgeries: Yes (KNEE SURGERY LEFT, T & A) Respiratory History of Respiratory Disorde: Yes Respiratory Disorders: Pneumonia, Sleep Apnea Currently Using CPAP: Yes Currently Using BIPAP: No Cardiovascular History of Cardiac Disorders: No Neurological History of Neurological Disord: Yes Reproductive System Hx Reproductive Disorders: No Sexually Transmitted Disease: No HIV/AIDS: No Gastrointestinal History of Gastrointestinal Di: Yes (CONSTIPATION AT TIMES) Gastrointestinal Disorders: Gastroesophageal Reflux Musculoskeletal History of Musculoskeletal Dis: No Endocrine History of Endocrine Disorders: No Cancer History of Cancer: No Psychosocial History of Psychiatric Problem: Yes Behavioral Health Disorders: Depression Blood Transfusions History of Blood Disorders: No Reviewed Nursing Assessment Reviewed/Agree w Nursing PMH: Yes Family Medical History Family Medial History: Patient reports no known family medical history. Review of Systems Time Seen by Provider: 07:20 Exam Exam Vital Signs Date Time Temp Pulse Resp B/P (MAP) Pulse Ox O2 Delivery O2 Flow Rate FiO2 07/29/17 06:53 122 46 99 100.00 07/29/17 06:00 126 42 105/71 (82) 98 NIV Bilevel 100.00 07/29/17 05:00 129 35 110/80 (90) 99 NIV Bilevel 100.00 07/29/17 04:15 125 41 98 NIV Bilevel 100.00 07/29/17 04:15 125 48 96 85.00 07/29/17 04:00 98.3 126 46 105/69 (81) 98 NIV Bilevel 85.00 07/29/17 03:00 129 45 103/62 (76) 100 NIV Bilevel 85.00 07/29/17 02:06 121 41 97 85.00 07/29/17 02:00 99.0 130 45 95/70 (78) 99 NIV Bilevel 85.00 07/29/17 01:00 133 43 96/71 (79) 94 NIV Bilevel 85.00 07/29/17 01:00 133 07/29/17 00:00 97 NIV Bilevel 85.00 07/29/17 00:00 100.4 134 37 103/64 (77) 97 NIV Bilevel 85.00 07/28/17 23:45 131 51 102/55 (71) 88 NIV Bilevel 85.00 07/28/17 23:30 135 41 100/79 (86) 96 NIV Bilevel 85.00 07/28/17 23:15 138 42 99/65 (76) 95 NIV Bilevel 85.00 07/28/17 23:00 137 49 114/71 (85) 96 NIV Bilevel 85.00 07/28/17 22:45 140 47 105/76 (86) 88 NIV Bilevel 85.00 07/28/17 22:30 137 51 114/67 (83) 97 NIV Bilevel 85.00 07/28/17 22:15 138 48 100/52 (68) 94 NIV Bilevel 85.00 07/28/17 22:00 137 35 126/76 (93) 97 NIV Bilevel 85.00 07/28/17 21:59 137 40 92 95.00 07/28/17 21:45 135 27 97 NIV Bilevel 95.00 07/28/17 21:30 137 35 116/79 (91) 93 NIV Bilevel 95.00 07/28/17 21:15 140 38 102/71 (81) 94 NIV Bilevel 95.00 07/28/17 21:00 135 35 111/82 (92) 94 NIV Bilevel 95.00 07/28/17 20:45 135 42 108/71 (83) 95 NIV Bilevel 95.00 07/28/17 20:32 135 47 92 95.00 07/28/17 20:30 133 42 127/83 (98) 93 NIV Bilevel 95.00 07/28/17 20:15 141 34 104/71 (82) 93 NIV Bilevel 95.00 07/28/17 20:00 94 NIV Bilevel 95.00 07/28/17 20:00 140 44 93 NIV Bilevel 95.00 07/28/17 19:46 138 07/28/17 19:45 138 51 99/69 (79) 95 NIV Bilevel 95.00 07/28/17 19:43 140 50 101/65 (77) 91 NIV Bilevel 95.00 07/28/17 19:38 93 NIV Bilevel 95 07/28/17 19:34 98.2 138 49 88/65 (73) 91 NIV Bilevel 95.00 07/28/17 19:32 138 07/28/17 19:25 98.6 135 50 95 07/28/17 19:23 135 46 95 07/28/17 18:23 149 57 90 07/28/17 17:57 159 57 85 07/28/17 16:55 99.2 154 50 100/88 (92) 80 Non Rebreather 15.00 I & O 07/29/17 07:00 Intake Total 3313 ml Output Total 375 ml Balance 2938 ml General Appearance: Moderate Distress (poor dentition) Neck: Normal Inspection Respiratory: Rales (rales bilaterally right greater than left) Cardiovascular: Tachycardia Capillary Refill: Less Than 3 Seconds Gastrointestinal: non tender, soft, no organomegaly Extremity: Normal Capillary Refill, Normal Inspection, Other (patient is capable and moving for extremities in response to painful stimuli) Neurologic/Psychiatric: Other (it is difficult to assess the patient's neurologic status. Although he speaks I am not able to understand the words. He moves 4 extremities. He appears to have sensation in all 4 extremities as well) Skin: Normal Color, Warm/Dry Lymphatic: No Adenopathy Results Lab Laboratory Tests 07/28/17 16:50 07/29/17 02:40 Assessment/Plan Assessment/Plan Severe sepsis with pneumonia -Continue vanco and zosyn Acute respiratory failure -BiPAP - will see if pt tolerates being off BiPAP Dysphagia -NPO until swallow eval RADHA with metabolic acidosis and decreased UO -IVF acute dehydration hx of severe dementia/parkinsons/nonverbal 255 Prognosis is poor. I recommend comfort care only/hospice. Will consult wind farm designer to discuss with family Clinical Quality Measures DVT/VTE Risk/Contraindication: Risk Factor Score Per Nursin RFS Level Per Nursing on Admit: 4+=Very High SHAN PETERSEN DO Jul 29, 2017 07:04
[2017-07-29] MEDS ORDERED: INFLUENZA TRIvalent 2017-2018 0.5 ML/45 MCG SYR IM ONE (07:15)
--- NOTE | 2017-07-29 07:59 | Diagnostic Imaging Report ---
INDICATION: Sepsis, pneumonia. Comparison study: Chest from yesterday. FINDINGS: Portable upright view of the chest demonstrates interval increase of the right-sided pulmonary infiltrates. Left-sided pulmonary infiltrates have minimally worsened. These are mainly in the left lower lobe. Heart size and vascularity are normal. IMPRESSION: There has been worsening of the bilateral pulmonary infiltrates more so on the right than the left. Dictated by: Dictated on workstation # [id number]
[2017-07-29] MEDS ORDERED: morphine INJ 4 MG/ML 1 ML (VIAL/SYRINGE) ONE (08:19)
[2017-07-29] MEDS: MAGNESIUM 1 GM/100 ML IVPB 100 ML IV SCH ×2 (08:27→10:12)
[2017-07-29] MEDS: morphine INJ 4 MG/ML 1 ML (VIAL/SYRINGE) IVP PRN ×10 (08:29→18:37)
[2017-07-29] MEDS: LORazepam INJ 2 MG/ML (ATIVAN) VIAL IV PRN ×4 (09:08→18:37)
--- NOTE | 2017-07-29 09:34 | Occ Therapy Progress Note ---
Therapy Progress Note 932 OT ordered per protocol due to new onset difficulty swallowing, increase in total care, difficulty using arms. Per verbal instructions from Dr Amanda, with DC OT at this time. May reorder if patient status improves. DAKOTA CLARK OT Jul 29, 2017 09:34
--- NOTE | 2017-07-29 09:54 | History & Physical-Hospitalist ---
HPI History of Present Illness: HPI/Chief Complaint Pt is a 57yoCm with a PMH of Parkinson's dementia who presents to the ER for altered mentation from his NH. Ems noted that he was hypoxia on transfer and he was started on BiPAP in the ER. His cousin was at bedside who was unsure of acute events leading to his hospitalization. Ling (his vacuum cleaner operator) is currently unavailable to provide further ROS. He is unable to provide any history. He has a history of very severe dementia and has been having difficulty with swallowing. On arrival was found to have bilateral pneumonia with a lactic acid of 6. He was admitted to the ICU for Septic Shock. Source: patient Exam Limitations: clinical condition Date Seen 07/29/17 Time Seen by Provider: 07:30 Attending Physician Jaylen Garcia MD PCP Jaylen Garcia MD Referring Physician Date of Admission Jul 28, 2017 at 18:15 Home Medications & Allergies Home Medications Reviewed patient Home Medication Reconciliation Form Allergies Allergies Coded Allergies No Known Drug Allergies (Unverified04/01/09) Past Oahkfja-Elzbib-Cbtjjx Hx Patient Social History Alcohol Use: Denies Use Recreational Drug Use: No Smoking Status: Unknown if Ever Smoked Physical Abuse Screen: No Sexual Abuse: No Recent Foreign Travel: No Contact w/other who traveled: No Recent Hopitalizations: Yes (ED FOR PNEM) Recent Infectious Disease Expo: No Immunizations Up To Date Date of Influenza Vaccine: May 16, 2016 Surgeries Yes (KNEE SURGERY LEFT, T & A) Neurological Respiratory Yes Currently Using CPAP: Yes Currently Using BIPAP: No Cardiovascular No Neurological Yes Dementia, Parkinson's Disease Reproductive System Hx Reproductive Disorders: No Sexually Transmitted Disease: No HIV/AIDS: No Gastrointestinal Yes (CONSTIPATION AT TIMES) Gastroesophageal Reflux Musculoskeletal No Endocrine History of Endocrine Disorders: No Cancer No Psychosocial History of Psychiatric Problem: Yes Behavioral Health Disorders: Depression Blood Transfusions History of Blood Disorders: No Reviewed Nursing Assessment Reviewed/Agree w Nursing PMH: Yes Family Medical History Significant Family History: Other Conditions/Hx (parkinson's- uncle) Family Hx: Patient reports no known family medical history. Review of Systems ROS-Unable to Obtain: Due to clinical condition and dementia Constitutional: see HPI Physical Exam Physical Exam Vital Signs Vital Sign - Last 12Hours 07/28/17 07/28/17 16:55 19:38 Temp 99.2 Pulse 154 Resp 50 B/P (MAP) 100/88 (92) Pulse Ox 80 O2 Delivery Non Rebreather O2 Flow Rate 15.00 FiO2 95 Capillary Refill : Less Than 3 Seconds General Appearance: Chronically ill, Moderate Distress HEENT: Other (poor dentition ) Neck: Supple, No Lymphadenopathy (L), No Lymphadenopathy (R) Respiratory: Accessory Muscle Use, Decreased Breath Sounds, Respiratory Distress Cardiovascular: No Murmur, Tachycardia Gastrointestinal: Normal Bowel Sounds, Non Tender, Soft Extremity: Non Tender, No Calf Tenderness, No Pedal Edema Neurologic/Psychiatric: Alert, Disoriented x3 Results Results/Procedures Lab Laboratory Tests 07/28/17 16:50 07/29/17 02:40 Radiology Date of Exam:07/29/17 CHEST 1 VIEW, AP/PA ONLY INDICATION: Sepsis, pneumonia. Comparison study: Chest from yesterday. FINDINGS: Portable upright view of the chest demonstrates interval increase of the right-sided pulmonary infiltrates. Left-sided pulmonary infiltrates have minimally worsened. These are mainly in the left lower lobe. Heart size and vascularity are normal. IMPRESSION: There has been worsening of the bilateral pulmonary infiltrates more so on the right than the left. Assessment/Plan Admission Diagnosis Septic Shock Diagnosis/Problems Diagnosis/Problems (1) Septic shock Status: Acute Assessment & Plan: Bilateral Pneumonia 2/4 SIRS and Lactic of 6 but trending down On Vanc and Zosyn Per ER received 30cc/kg bolus, blood cultures ordered in ER (2) Dementia in Parkinson's disease Assessment & Plan: Severe dementia per family ABle to talk but often does not make sense Qualifiers: Qualified Codes: G20 - Parkinson's disease; F02.80 - Dementia in other diseases classified elsewhere without behavioral disturbance (3) RADHA (acute kidney injury) Status: Acute Assessment & Plan: Continue IV Fluids Check in AM UOP under goal currently- continue to monitor (4) Normocytic anemia Status: Chronic Assessment & Plan: Near baseline (5) Hypomagnesemia Assessment & Plan: on protocol (6) Counseling regarding end of life decision making Assessment & Plan: Discussed poor prognosis with cousin at bedside Would like to convert to goals of care to Comfort measures only End of Life order set initiated Palliative Consult placed I personally called and updated PCP's DIAMOND POLISHER of change in status and plan for hospice Clinical Quality Measures Type of Care: Type of Care: Comfort Measures, Hospice (Hospital) DVT/VTE Risk/Contraindication: Risk Factor Score Per Nursin RFS Level Per Nursing on Admit: 4+=Very High Sepsis: Within 3hrs of presentation: Admin fluids, Admin ABX, Blood cultures prior to ABX's, Lactate level JACKELINE LOPEZ MD Jul 29, 2017 09:54
--- NOTE | 2017-07-29 10:44 | ST Dysphagia Evaluation ---
Speech Evaluation-General Medical Diagnosis Septic Shock, Bilateral Pneumonia Onset Date: Jul 28, 2017 Therapy Diagnosis Therapy Diagnosis: Severe Oropharyngeal Dysphagia Precautions Precautions: Aspiration Precautions/Isolations: Seizure, Fall Prevention, Standard Precautions Referral Referring Physician: Dr. Avis Neville Reason for Referral: Evaluation/Treatment Clinical Bedside Swallowing Evaluation Medical History Pertinent Medical History: Dementia (Severe), GERD, Parkinson's Current History The patient was recently admitted to [facility] with a diagnosis of septic shock and bilateral pneumonia. The patient was transported from his assisted the day prior with low oxygen saturations (70's) and fever. Upon admission, BiPAP returned the patient's oxygen saturation to the 90's (per chart review). Reviewed History: Yes Speech PLF/Current-Dysphagia Prior Level of Function The patient is unable to provide prior level of function due to severe dementia. The patient's family members were at bedside who stated, "the patient was sent to the dentist to have his teeth looked at last week, they were all black. When the patient got to the dentist, the dentist found large amounts of food stuck in the back of his throat." Subjective The patient was seated upright in bed by the clinician upon entrance. The patient has several family members at bedside. All lights were placed on in the room to aid in alertness and possible participation, as well as, visualization of the patient's oral cavity by the clinician. The patient displayed fluctuating oxygen saturation at baseline (90% to 76%), prior to bolus trials. The patient followed limited commands. Cognitive Status Patient Orientation: Unable to Assess Oral Motor Skills Dentition: Natural (The patient's dentition was in an extremely poor state. Several teeth were missing, stained, and broken. The patient appeared to have black, dried blood on several teeth, as well as, crusting on his lips, tongue, and buccal surface. Audible secretions were heard at baseline.) Ability to Follow Directions: Poor The patient is currently NPO. Oral Expression Ability: Severe Impairment Observation: Excessive Excretion Hypopharynx, Hypopharynx Suction Face Facial Symmetry: Symmetrical (Grossly symmetrical at rest. No overt facial droop.) The patient was unable to complete oral motor movements to complete an oral motor examination prior to bolus trials. Extensive oral care was provided by the clinician including suctioning. The patient did not attempt to aid in oral treatment. Dysphagia Evaluation Dysphagia Evaluation Summary Due to the patient's reduced alertness, extremely poor oral cavity state, inability to follow verbal directions, inability to control own secretions, and fluctuating oxygen saturations the clinician does not deem the patient safe to complete oral trials. Due to the patient's poor oral state and inability to handle his own secretions , the clinician is concerned of bacteria from the oral cavity entering the lungs with aspiration of secretions. Excellent, consistent oral care should be completed. The above information was discussed with the patient's family, as well as, the hospitalist (Dr. Amanda). Dr. Amanda agrees the patient is currently inappropriate for oral intake and discusses the patient's family's decision to seek comfort care. At this time, speech pathology will sign off. If the patient's alertness and appropriateness for PO intake increases, please reconsult speech pathology. Speech-Plan Treatment Plan Speech Therapy Treatment Plan: Discontinue ST At this time, the patient is inappropriate and unsafe for completion of a clinical bedside swallowing evaluation. Frequency: 1 time per month Estimated Hrs Per Day: Other Rehab Potential: Poor Safety Risks/Education Teaching Recipient: Family Teaching Methods: Discussion Response to Teaching: Reinforcement Needed Education Topics Provided: Results, Recommendations, Plan of Care Time Speech Therapy Time In: 09:05 Speech Therapy Time Out: 09:30 Total Billed Time: 25 Billed Treatment Time 1, CLARITA GOMEZ Jul 29, 2017 10:44
[2017-07-29] MEDS ORDERED: ACETAMINOPHEN 650 MG SUPP (TYLENOL) PR PRN (11:15)
[2017-07-29] MEDS ORDERED: ARTIFICAL TEARS 0.4 ML UNIT DOSE (REFRESH PLUS) OU PRN (11:15)
[2017-07-29] MEDS ORDERED: ONDANSETRON 4 MG/2 ML (SDV) Z0FRAN IVP PRN (11:15)
[2017-07-29] MEDS ORDERED: RT-ALBUTEROL/IPRATROPIUM 3 ML (DUONEB) VIAL INH PRN (11:15)
[2017-07-29] MEDS ORDERED: ARTIFICIAL TEARS OINT (LACRI-LUBE) 3.5 GM TUBE OU PRN (11:15)
[2017-07-29] MEDS ORDERED: BISACODYL 10 MG SUPP (DULCOLAX) PR PRN (11:15)
[2017-07-29] MEDS ORDERED: SALIVA STIMULANT MOUTH SPRAY (BIOTENE) 1.5 OZ MM PRN (11:15)
[2017-07-29] MEDS ORDERED: SCOPOLAMINE 1.5 MG (TRANSDERM-SCOP) PATCH TOP SCH (11:15)
[2017-07-29] MEDS ORDERED: PROMETHAZINE INJ 25 MG/ML (PHENERGAN) AMP IVP PRN (11:15)
[2017-07-29] MEDS: GLYCOPYRROLATE 0.2 MG/ML (ROBINUL) 2 ML VIAL IV PRN ×2 (11:36→15:51)
[2017-07-29] MEDS ORDERED: VANCOMYCIN 1 GM/NS 250 ML IVPB IV SCH ×2 (19:00)
[2017-07-29] MEDS ORDERED: morphine INJ 4 MG/ML 1 ML (VIAL/SYRINGE) IVP PRN (19:15)
[2017-07-29] MEDS: ENOXAPARIN 40 MG/0.4 ML (LOVENOX) SYR SC SCH (19:48)
--- NOTE | 2017-07-30 11:32 | Physician Query Clarification ---
PQ-Further Specificity Admission/Discharge Admission Date: Jul 28, 2017 at 18:15 Discharge Date: Jul 30, 2017 at 00:47 The medical record reflects the following clinical scenario: History/Risk Factors: Dysphagia, Parkinson's with dementia, poor dentation Clinical Findings: riaz lower lobe infiltrates, O2 sats 70's, accessory muscle use, AMS Treatment: IV Vancomycin and IV Zosyn Question: Can you further specify Pneumonia per the clinical indicators above? Please document below. 1. Aspiration pneumonia 2. Bilateral pneumonia etiology undetermined 3. Other, with explanation of the clinical findings. 4. Clinically undetermined, no explanation for the clinical findings. PHYSICIAN RESPONSE Can you specify per above: 1 In responding to this query, please exercise your independent professional judgment. The purpose of this communication is to more accurately reflect the complexity of your patients condition. The fact that a question is asked does not imply that any particular answer is desired or expected. Thank you for your timely response to this clarification. Requestors name: Nan THIS PHYSICIAN QUERY FORM IS A PERMANENT PART OF THE MEDICAL RECORD NAN PATEL Jul 30, 2017 11:32 JACKELINE LOPEZ MD Jul 30, 2017 16:55
[2017-07-30] MEDS ORDERED: TROUGH ORDER-PHARMACY XX NR (18:00)
[2017-08-01] MEDS ORDERED: SCOPOLAMINE PATCH REMOVAL TP SCH (11:28)
== END 2017-07-29 23:01 | disposition expired | DRG 871 ==
LOC: EDUNIT# 16:45 → ER 16:46 → ICU 18:15 → 4TH 07-29 12:07
PROVIDERS: ADMIT Internal Medicine
DX: A41.9 Sepsis, unspecified organism (principal); R65.21 Severe sepsis with septic shock; J69.0 Pneumonitis due to inhalation of food and vomit; J96.00 Acute respiratory failure, unspecified whether with hypoxia or hypercapnia; N17.9 Acute kidney failure, unspecified; R13.12 Dysphagia, oropharyngeal phase; Z66 Do not resuscitate; Z51.5 Encounter for palliative care; G20 Parkinson's disease; F02.80 Dementia in other diseases classified elsewhere, unspecified severity, without behavioral disturbance, psychotic disturbance, mood disturbance, and anxiety; E86.0 Dehydration; D64.9 Anemia, unspecified; K21.9 Gastro-esophageal reflux disease without esophagitis; F32.9 Major depressive disorder, single episode, unspecified; G47.30 Sleep apnea, unspecified; E83.42 Hypomagnesemia
CPT/HCPCS: 36415; 51702; 70450; 71010; 80048; 80053; 81000; 82805; 82962; 83605; 83735; 84100; 85025; 87040; 87077; 93005; 94640; 94660; 94668; 96361; 96365; 96367; 96375